=== PATIENT | male | born 1935 | race Caucasian/White ===

== ENCOUNTER 2017-01-16 19:53 | Observation (INO) ==
--- NOTE | 2017-01-16 19:59 | Emergency Department Note ---
Disposition Clinical Impression: Shortness of breath, Elevated troponin, History of end stage renal disease Acute exacerbation of CHF (congestive heart failure) Qualifiers: Congestive heart failure type: systolic Qualified Code(s): I50.23 - Acute on chronic systolic (congestive) heart failure Fluid overload Qualifiers: Hypervolemia type: unspecified Qualified Code(s): E87.70 - Fluid overload, unspecified Disposition: Admitted As Inpatient Condition: Fair Forms: ED Satisfaction Letter Time of Disposition: 22:52 SOB HPI - General Chief Complaint: ED Shortness of Breath/Dyspnea Stated Complaint: NASRA Time Seen by Provider: 01/16/17 19:57 Source: patient, EMS Mode of arrival: EMS Nursing Notes Reviewed: Yes Vital Signs Reviewed: Yes - History of Present Illness Patient is a 81-year-old male with past medical history of hypertension, hyperlipidemia, previous NM, CHF, end-stage renal disease with dialysis on Tuesday, Tuesday, Tuesday. He has not missed any dialysis sessions. He presents today due to shortness of breath, increased abdominal girth, weight gain. Patient states that he has been admitted to the hospital multiple times and states that this is exactly how previous fluid overload has presented. Denies any chest pain, cough, fevers, nausea, vomiting, abdominal pain. He does admit to shortness of breath both at rest and with exertion. - Related Data Home Medications Medication Instructions Recorded Confirmed Allopurinol [Zyloprim] 200 mg PO DAILY 09/10/15 11/09/15 Aspirin Enteric Coated [Aspirin EC] 81 mg PO DAILY 09/10/15 11/09/15 Clopidogrel [Plavix] 75 mg PO QAM 09/10/15 11/09/15 Colchicine [Colcrys] 0.6 mg PO DAILY 09/10/15 11/09/15 Finasteride [Proscar] 5 mg PO QPM 09/10/15 11/09/15 Isosorbide MONOnitrate (24 HR) 60 mg PO QAM 09/10/15 11/09/15 [Imdur] Metoprolol XL (24 HR) Succ [Toprol 25 mg PO QAM 09/10/15 11/09/15 XL] Silodosin [Rapaflo] 4 mg PO QAM 09/10/15 11/09/15 Simvastatin [Zocor] 40 mg PO QPM 09/10/15 11/09/15 Furosemide [Lasix] 20 mg PO DAILY 11/09/15 11/09/15 Potassium Chloride [K-Tab ER] 20 meq PO DAILY 11/09/15 11/09/15 Previous Rx's Medication Instructions Recorded Ergocalciferol (VITAMIN D2) 50,000 unit PO QWEEK capsule 11/11/15 [Drisdol (50,000 Unit)] Furosemide [Lasix] 40 mg PO DAILY #30 tab 11/11/15 Simvastatin [Zocor] 40 mg PO QPM tablet 11/11/15 Allergies Allergy/AdvReac Type Severity Reaction Status Date / Time No Known Allergies Allergy Verified 01/11/17 14:20 Constitutional: Denies: fever Eyes: Denies: eye pain ENT ED: Denies: ear pain Cardiovascular: Denies: chest pain, palpitations, dyspnea on exertion Respiratory: Reports: dyspnea. Denies: cough, wheezes Gastrointestinal: Denies: abdominal pain, nausea, vomiting, diarrhea Genitourinary: Denies: urgency, dysuria, frequency Musculoskeletal: Denies: back pain, neck pain Integumentary: Denies: rash, abrasion, lesions Neurological: Denies: headache Past Medical History - Past Medical History Attestation: Yes The following information was validated with the patient. Medical history: Reports: arthritis, cardiomyopathy, CHF, coronary artery disease, GERD, hyperlipidemia, hypertension, myocardial infarction, renal disease, other Surgical history: Reports: angioplasty/stent (BMS to LAD at [facility] 2010), cataract , knee replacement, pacemaker/AICD (dual chamber ICD) Psychiatric history: Reports: no psych history - Social History Smoking Status: Never smoker Smokeless Tobacco Status: No Alcohol use: Reports: none Drug use: Reports: none Physical Exam - General Limitations: no limitations General appearance: alert - Head Head exam: atraumatic, normocephalic, normal inspection - Eye Eye exam: Present: normal appearance, PERRL, EOMI - ENT ENT exam: normal exam, normal oropharynx, mucous membranes moist - Neck Neck exam: Present: normal inspection, full ROM, trachea midline - Chest Chest inspection: Present: normal inspection, symmetric chest wall rise - Respiratory Respiratory exam: Present: other (Increased work of breathing, mild accessory muscle use, fine crackles in bilateral lower lobes.) - Cardiovascular Cardiovascular exam: Present: regular rate, normal rhythm, normal heart sounds - Abdominal Exam Abdominal exam: Present: soft, Non-Tender, distention. Absent: tenderness, guarding, rebound, rigidity - Extremities Exam Extremities exam: Present: normal inspection, full ROM. Absent: tenderness, pedal edema - Neurological Exam Neurological exam: Present: alert, oriented X3 - Psychiatric Psychiatric exam: Present: normal affect, normal mood - Skin Skin exam: Present: warm, dry, intact, normal color Course Course Narrative: Blood pressure in 90s over 60s. However, the rest of vitals were within normal limits. Physical exam shows Increased work of breathing, mild accessory muscle use, fine crackles in bilateral lower lobes. Due to concern about fluid overload, we will obtain basic labs, chest x-ray, we will also obtain a troponin due to previous cardiac history. 22:48 No elevation in white blood cell count. Troponin 0.09 which would be expected with end-stage renal disease. EKG showed no acute ST changes. BNP elevated in 3000s, highest BNP to date. Chest x-ray shows interstitial edema. I talk with the patient and he stated that he did not want dialysis at this time. I called Dr. Campbell and discussed the case. He stated that since patient did not want dialysis, give the patient IV 40 mg Lasix and he will act as a consult and evaluate the patient in the morning. No need for emergent dialysis at this time. Dr. Krause accepted for fluid overload, CHF, hx of ESRD. Chest X-Ray 01/16/17 19:58 IMPRESSION: Stable exam with interstitial markings likely representing pulmonary vascular congestion. D/ / Reynaldo Lund MD / Reynaldo Lund MD Interpreting Provider: Reynaldo Lund MD Vital Signs Temperature 98.6 F 01/16/17 20:05 Pulse Rate 85 01/16/17 20:05 Respiratory Rate 20 01/16/17 20:05 Blood Pressure 89/73 01/16/17 20:05 O2 Sat by Pulse Oximetry 100 01/16/17 20:05 Temperature 98.6 F 01/16/17 20:05 Pulse Rate 92 01/16/17 22:13 Respiratory Rate 20 01/16/17 22:13 Blood Pressure 106/81 01/16/17 22:13 O2 Sat by Pulse Oximetry 97 01/16/17 22:13 Oxygen Delivery Oxygen Delivery Nasal Cannula Shortness of Breath/Dyspnea - [facility] Narrative Medical decision making narrative: Blood pressure in 90s over 60s. However, the rest of vitals were within normal limits. Physical exam shows Increased work of breathing, mild accessory muscle use, fine crackles in bilateral lower lobes. Due to concern about fluid overload, we will obtain basic labs, chest x-ray, we will also obtain a troponin due to previous cardiac history. 22:48 No elevation in white blood cell count. Troponin 0.09 which would be expected with end-stage renal disease. EKG showed no acute ST changes. BNP elevated in 3000s, highest BNP to date. Chest x-ray shows interstitial edema. I talk with the patient and he stated that he did not want dialysis at this time. I called Dr. Campbell and discussed the case. He stated that since patient did not want dialysis, give the patient IV 40 mg Lasix and he will act as a consult and evaluate the patient in the morning. No need for emergent dialysis at this time. Dr. Krause accepted for fluid overload, CHF, hx of ESRD. - Lab Data Lab results reviewed: Yes I reviewed the patient's lab results. Result diagrams: 01/16/17 20:40 01/16/17 20:40 Lab Results 01/16/17 01/16/17 01/16/17 Range/Units 20:40 20:40 20:40 WBC 8.4 (4.3-11.1) K/mcL RBC 3.42 L (4.19-5.50) M/mcL Hgb 10.6 L (12.9-16.9) g/dL Hct 33.0 L (37.5-50.1) % MCV 96.5 (83.0-100.0) fL MCH 31.0 (28.0-33.3) pg MCHC 32.1 (31.6-35.5) g/dL RDW 13.9 (11.5-14.5) % Plt Count 189 (140-400) K/mcL MPV 11.8 (9.4-12.4) fL Immature Gran % 0.2 (0-4) % Seg Neutrophils % 66.2 % Lymphocytes % 16.9 % Monocytes % 11.0 % Eosinophils % 5.2 % Basophils % 0.5 % Neutrophils # 5.6 (1.6-8.9) K/mcL Lymphocytes # 1.4 (0.6-4.6) K/mcL Monocytes # 0.9 (0.0-1.3) K/mcL Eosinophils # 0.4 (0.0-0.6) K/mcL Basophils # 0.0 (0.0-0.2) K/mcL Sodium 137 (136-145) mEq/L Potassium 3.5 (3.5-4.5) mEq/L Chloride 101 (98-109) mEq/L Carbon Dioxide 24 (19-29) mEq/L BUN 46 H (8-26) mg/dL Creatinine 3.73 H (0.72-1.25) mg/dL Est GFR ( Amer) 19 L (> 60) Est GFR (Non-Af Amer) 16 L (> 60) BUN/Creatinine Ratio 12 (6-26) Glucose 114 H (70-99) mg/dL Calculated Osmolality 297 (280-300) Calcium 9.6 (8.6-10.8) mg/dL Troponin I 0.09 H* (0-0.03) ng/mL B-Natriuretic Peptide (0-100) pg/mL 01/16/17 Range/Units 20:40 WBC (4.3-11.1) K/mcL RBC (4.19-5.50) M/mcL Hgb (12.9-16.9) g/dL Hct (37.5-50.1) % MCV (83.0-100.0) fL MCH (28.0-33.3) pg MCHC (31.6-35.5) g/dL RDW (11.5-14.5) % Plt Count (140-400) K/mcL MPV (9.4-12.4) fL Immature Gran % (0-4) % Seg Neutrophils % % Lymphocytes % % Monocytes % % Eosinophils % % Basophils % % Neutrophils # (1.6-8.9) K/mcL Lymphocytes # (0.6-4.6) K/mcL Monocytes # (0.0-1.3) K/mcL Eosinophils # (0.0-0.6) K/mcL Basophils # (0.0-0.2) K/mcL Sodium (136-145) mEq/L Potassium (3.5-4.5) mEq/L Chloride (98-109) mEq/L Carbon Dioxide (19-29) mEq/L BUN (8-26) mg/dL Creatinine (0.72-1.25) mg/dL Est GFR ( Amer) (> 60) Est GFR (Non-Af Amer) (> 60) BUN/Creatinine Ratio (6-26) Glucose (70-99) mg/dL Calculated Osmolality (280-300) Calcium (8.6-10.8) mg/dL Troponin I (0-0.03) ng/mL B-Natriuretic Peptide 3128 H (0-100) pg/mL - Radiology Data Radiology results reviewed: Yes I reviewed the patient's radiology results. Chest X-Ray 01/16/17 19:58 IMPRESSION: Stable exam with interstitial markings likely representing pulmonary vascular congestion. D/ / Reynaldo Lund MD / Reynaldo Lund MD Interpreting Provider: Reynaldo Lund MD - EKG Data EKG attestation: Yes I reviewed and interpreted this EKG. EKG results narrative: 01/16/2017 at 20:20. EKG shows paced rhythm. Rate 83. QRS 216. QTC 513. No acute ST changes. S.B.A.R. - Ashley Situation: Demographics, MOA Background: Presenting Complaint, Relevant PMH, Meds, & Allergies Assessment: Vital Signs, Course and respsone to treatment, Exam Concerns, Patient/Family Expectation, Pertinant Lab Results, Outstanding Labs Recommendation: Barrier(s) to disposition, Recommendation based on pending studies, treatments, or consults [email or web address] Report Given to: Dr. Jimi Ramirez Repor Time: 22:53
--- NOTE | 2017-01-16 20:03 | Emergency Department Note ---
START Narrative - START START: For this encounter, I have reviewed the resident, CARDIOTHORACIC ANESTHESIA TECHNICIAN, or PA documentation, treatment plan, and medical decision making; and I have had face to face time with this patient. 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 Pt is chronic dialysis, MWF, denies missing any treatments. +SOB with exertion and at rest. Denies cough, chest pain, n/v/d, fever. Pt reports feeling fluid overloaded with increased weight gain, abdominal distention. Reports these symptoms are similar to previous fluid overload in the past. Seen for hypotension after dialysis within the past week and received IVFs. Patient is dyspneic with conversation. We will obtain labs and imaging to rule out cardiac disease, fluid overload, infection. Laboratories results reveal elevation of BNP. Chest x-ray does not reveal acute infiltrate. Patient is afebrile and does not have a leukocytosis. She will be admitted to the hospital for diuresis and or dialysis. Resident spoke with Dr. Allen the mechanical door repairer regarding the patient's care who agreed with the plan for admission to the hospital and recommended Lasix 40 mg IV. Patient blood pressure in the mid 90s which is the patient's baseline. Patient is awake alert and interactive with the exam.
[2017-01-16 21:00] LABS: Basophils % 0.5 %; Eosinophils # 0.4 K/mcL (0.0-0.6); Eosinophils % 5.2 %; Hemoglobin 10.6 g/dL (12.9-16.9); Immature Granulocytes % 0.2 % (0-4); Lymphocytes # 1.4 K/mcL (0.6-4.6); Lymphocytes % 16.9 %; Mean Corpuscular HGB Conc 32.1 g/dL (31.6-35.5); Mean Corpuscular Volume 96.5 fL (83.0-100.0); Mean Platelet Volume 11.8 fL (9.4-12.4); Monocytes # 0.9 K/mcL (0.0-1.3); Neutrophils # 5.6 K/mcL (1.6-8.9); Platelet Count 189 K/mcL (140-400); Red Blood Count 3.42 M/mcL (4.19-5.50); Red Cell Distribution Width 13.9 % (11.5-14.5); Segmented Neutrophils % 66.2 %
[2017-01-16 21:13] LABS: Calcium 9.6 mg/dL (8.6-10.8); Potassium 3.5 mEq/L (3.5-4.5)
[2017-01-16] MEDS ORDERED: Furosemide 40 MG/4 ML VIAL IVP ONE (22:00)
[2017-01-17] MEDS ORDERED: Ipratropium/Albuterol Neb 3 ML IH PRN (00:38)
[2017-01-17] MEDS ORDERED: Ondansetron ODT 4 MG TAB.RAPDIS SL PRN (00:38)
[2017-01-17] MEDS ORDERED: Naloxone 0.4 MG/ML INJ IVP PRN (00:38)
[2017-01-17] MEDS ORDERED: Acetaminophen 325 MG TABLET PO PRN (00:38)
[2017-01-17] MEDS ORDERED: *HR* Morphine 2 MG/ML SYRINGE IVP PRN (00:38)
[2017-01-17] MEDS ORDERED: *HR* OxyCODONE Immed Rel 5 MG TABLET PO PRN ×3 (00:38→12:16)
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
[2017-01-17] MEDS ORDERED: metOLazone 5 MG TABLET PO STA (04:34)
[2017-01-17] MEDS ORDERED: Bumetanide 1 MG/4 ML VIAL IVP STA (04:34)
[2017-01-17 04:53] LABS: Basophils # 0.1 K/mcL (0.0-0.2); Basophils % 0.6 %; Eosinophils # 0.4 K/mcL (0.0-0.6); Eosinophils % 5.1 %; Hemoglobin 10.4 g/dL (12.9-16.9); Immature Granulocytes % 0.2 % (0-4); Lymphocytes # 1.6 K/mcL (0.6-4.6); Mean Corpuscular HGB Conc 32.5 g/dL (31.6-35.5); Mean Corpuscular Hemoglobin 31.1 pg (28.0-33.3); Mean Corpuscular Volume 95.8 fL (83.0-100.0); Mean Platelet Volume 12.2 fL (9.4-12.4); Monocytes # 0.9 K/mcL (0.0-1.3); Monocytes % 10.8 %; Neutrophils # 5.4 K/mcL (1.6-8.9); Platelet Count 180 K/mcL (140-400); Red Blood Count 3.34 M/mcL (4.19-5.50); Red Cell Distribution Width 13.9 % (11.5-14.5); Segmented Neutrophils % 64.3 %
[2017-01-17 04:54] LABS: VBG HCO3 24.7 mEq/L (21-27)
[2017-01-17] MEDS: *HR* Heparin 5,000 UNIT/ML VIAL SQ SCH ×2 (05:05→18:29)
[2017-01-17 05:07] LABS: VBG PH 7.62 pH Units (7.32-7.42)
[2017-01-17 05:08] LABS: Ionized Calcium 1.14 mmol/L (1.15-1.35)
[2017-01-17 05:16] LABS: Albumin 2.8 g/dL (3.5-5.0); Albumin/Globulin Ratio 0.7 (1.1-2.2); Bilirubin,Direct 0.3 mg/dL (0.0-0.5); Bilirubin,Indirect 0.6 mg/dL (0.0-1.2); Bilirubin,Total 0.9 mg/dL (0.2-1.2); Calcium 9.5 mg/dL (8.6-10.8); Chol/HDL Ratio 3.1 (0-4.9); Globulin 3.9 g/dL (2.4-3.5); Magnesium 1.9 mg/dL (1.6-2.6); Phosphorous 3.9 mg/dL (2.3-4.7); Potassium 3.6 mEq/L (3.5-4.5); Total Protein 6.7 g/dL (6.0-8.3); Uric Acid 5.6 mg/dL (3.5-7.2)
[2017-01-17 05:44] LABS: Thyroid Stimulating Hormone 3.801 mcIU/mL (0.350-4.840)
--- NOTE | 2017-01-17 08:24 | Nephrology Consult Note ---
Date of Encounter: 01/17/17 Time of Encounter: 08:22 Assessment and Plan (1) End-stage renal disease Current Visit: Yes Status: Acute Patient has end-stage renal disease and receives dialysis every Tuesday in [place]. He presents with acute on chronic systolic congestive heart failure in the setting of ischemic heart myopathy. Last ejection fraction was 25% back in August 2015. Patient will undergo dialysis today with volume removal as tolerated. He tends to run a low blood pressure which makes volume removal difficult on dialysis. We are going to recommend checking another echocardiogram to see if his ejection fraction has changed. It is also noteworthy that he had a CAT scan back in August 2015 which suggested some underlying chronic interstitial lung disease. May be worthwhile to repeat the CAT scan and/or get a pulmonary consultation to rule out underlying primary pulmonary disease. (2) Cardiomyopathy, ischemic Current Visit: Yes Status: Chronic (3) Systolic CHF, acute on chronic Current Visit: Yes Status: Acute History of Present Illness - History of Present Illness This is a 81-year-old male with end-stage renal disease who recently started dialysis. Patient presented to emergency room last night with complaints of worsening exertional dyspnea and orthopnea. Chest x-ray showed some interstitial lung changes. Patient has a history of ischemic cardiomyopathy. Last ejection fraction on echo was 25% back in August 2015. Patient denies any chest pain. Patient did receive some IV Lasix in the emergency room. He says he is breathing better this morning. Blood gases actually suggested a respiratory alkalosis. BNP is elevated but it is chronically elevated. Patient had noted some intermittent lower extremity swelling over the weekend but none currently. He does tend to run a low blood pressure with a systolic in the 90s which does make volume removal on dialysis difficult. Past Med Surg Social Fam HX - Past Medical History Medical history: arthritis, cardiomyopathy, CHF, coronary artery disease, GERD, hyperlipidemia, hypertension, myocardial infarction, renal disease, other Psychiatric history: no psych history - Past Surgical History Surgical History: angioplasty/stent, cataract, knee replacement, orthopedic, other, pacemaker/AICD, other, AICD, pacemaker - Social History Smoking Status: Never smoker Smokeless Tobacco Status: No Alcohol use: none Drug use: none - Family History Mother Living Status: Age at : 85 Cause of : Heart problems Hx Family Cardiac Disorders: Yes Hx Family Respiratory Disorders: No Hx Family Cancer: No Hx Family GI Disorders: No Hx Family Genitourinary Disorders: No Hx Family Endocrine Disorder: No Hx Family Musculoskeletal Disorders: No Hx Family Neuromuscular Disorders: No Hx Family Neurologic Disorders: No Hx Family HEENT Disorders: No Hx Family Autoimmune Disorders: No Hx Family Reproductive Disorders: No Hx Family Psychosocial Disorders: No Hx Family Medical Disorders: No Father Hx Family Cardiac Disorders: Yes Medications and Allergies Allopurinol [Zyloprim] 200 mg PO DAILY 09/10/15 [History] Aspirin Enteric Coated [Aspirin EC] 81 mg PO DAILY 09/10/15 [History] Clopidogrel [Plavix] 75 mg PO QAM 09/10/15 [History] Colchicine [Colcrys] 0.6 mg PO DAILY 09/10/15 [History] Finasteride [Proscar] 5 mg PO QPM 09/10/15 [History] Isosorbide MONOnitrate (24 HR) [Imdur] 60 mg PO QAM 09/10/15 [History] Metoprolol XL (24 HR) Succ [Toprol XL] 25 mg PO QAM 09/10/15 [History] Silodosin [Rapaflo] 4 mg PO QAM 09/10/15 [History] Simvastatin [Zocor] 40 mg PO QPM 09/10/15 [History] Furosemide [Lasix] 20 mg PO DAILY 11/09/15 [History] Potassium Chloride [K-Tab ER] 20 meq PO DAILY 11/09/15 [History] Ergocalciferol (VITAMIN D2) [Drisdol (50,000 Unit)] 50,000 unit PO QWEEK capsule 11/11/15 [Rx] Furosemide [Lasix] 40 mg PO DAILY #30 tab 11/11/15 [Rx] Simvastatin [Zocor] 40 mg PO QPM tablet 11/11/15 [Rx] Allergies No Known Allergies Allergy (Verified 01/11/17 14:20) Review of Systems Constitutional: as per HPI Eyes: bilateral: blurred vision (patient denies), diplopia (patient denies) Nose, mouth and throat: no dizziness, no headache(s) Cardiovascular: dyspnea, dyspnea on exertion, edema, orthopnea, no chest pain, no palpitations Respiratory: as per HPI, dyspnea, dyspnea on exertion Gastrointestinal: no abdominal pain, no change in bowel habits Musculoskeletal: no muscle weakness, no numbness Integumentary: no hirsutism, no striae Neurological: as per HPI Psychiatric: no depression, no difficulty concentrating Endocrine: as per HPI Hematologic/Lymphatic: no easy bruising, no lymphadenopathy Exam - Vital Signs Vital signs: Initial Vital Signs Temp Pulse Resp BP Pulse Ox 98.6 F 85 20 89/73 100 01/16/17 20:05 01/16/17 20:05 01/16/17 20:05 01/16/17 20:05 01/16/17 20:05 Vital Signs - Last 8 Hours Temp Pulse Resp BP Pulse Ox 01/17/17 07:37 97.8 F 83 18 97/65 93 L 01/17/17 07:30 97.8 F 83 18 97/65 93 L 01/17/17 04:17 97.5 F L 91 22 92/70 94 L Intake and Output 01/16/17 01/17/17 01/17/17 23:59 07:59 15:59 Output Total 500 / 500 Balance -500 / -500 Output: Urine 500 / 500 Other: Weight 72.121 kg 72.1 kg Patient Weight 01/17/17 23:59 Weight 72.1 kg - General Appearance Exam: Patient is alert and oriented. He is in no acute distress. Neck is supple. Lungs exhibit some diminished breath sounds. Lungs actually sound pretty clear. There are no wheezing rales or rhonchi noted. Heart regular rate and rhythm with a 2/6 systolic ejection murmur. Abdomen shows normal bowel sounds are present as is again a medically or tenderness. Lower extremity show minimal edema. There is a functioning AV fistula in the right upper extremity. Results - Lab Results 01/17/17 04:20 01/17/17 04:20 Most recent lab results Calcium 9.5 mg/dL (8.6-10.8) 01/17/17 04:20 Phosphorus 3.9 mg/dL (2.3-4.7) 01/17/17 04:20 Magnesium 1.9 mg/dL (1.6-2.6) 01/17/17 04:20 Consult Discharge Plan - Plan Referrals: Beverly Chen MD [Primary Care Provider] -
[2017-01-17] MEDS ORDERED: 0.9 % Sodium Chloride 250 ML IV PRN (08:26)
[2017-01-17] MEDS ORDERED: 0.9 % Sodium Chloride 2,000 ML ONE (09:15)
[2017-01-17] MEDS: Metoprolol XL (24 HR) Succ 25 MG TAB.ER.24H PO SCH (09:28)
[2017-01-17] MEDS: Isosorbide MONOnitrate (24 HR) 60 MG TAB.ER.24H PO SCH (09:28)
[2017-01-17] MEDS: Aspirin Enteric Coated 81 MG Tablet PO SCH (09:29)
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
--- NOTE | 2017-01-17 13:05 | Electrocardiograph Report ---
[place] [id number] Test Date: 2017-01-16 Pat Name: Av Amaro Department: 104 Room: 2A42 Gender: M Switch Maker: : 1935 Requested By: Kieran Borjas Order Number: [id number] Reading MD: Reji Morris MD Measurements Intervals Turner Rate: 83 P: 63 CA: 167 QRS: -79 QRSD: 216 T: 97 QT: 474 QTc: 513 Interpretive Statements ELECTRONIC VEN[employer]ICULAR PACEMAKER Electronically Signed On 01-17-2017 13:04:10 EDT by Reji Morris MD
[2017-01-17] MEDS ORDERED: *HR* LORazepam 2 MG/ML VIAL IVP ONE (18:19)
[2017-01-17] MEDS: Finasteride 5 MG TABLET PO SCH (18:28)
[2017-01-18] MEDS: *HR* Heparin 5,000 UNIT/ML VIAL SQ SCH (06:24)
--- NOTE | 2017-01-18 08:06 | Nephrology Progress Note ---
Date of Encounter: 01/18/17 Time of Encounter: 08:05 - Assessment and Plan (1) End-stage renal disease Current Visit: Yes Status: Acute Patient is symptomatically better. It is difficult to remove a large amount of volume with the patient on dialysis because of low blood pressure and also because of muscle cramping. I think the patient should be placed back on some Lasix since he does continue to make urine and this may assist with his volume control. (2) Cardiomyopathy, ischemic Current Visit: Yes Status: Chronic (3) Systolic CHF, acute on chronic Current Visit: Yes Status: Acute Subjective Interval history: The patient reports he is breathing better. Patient only had about 1.3 L removed on dialysis yesterday. Volume removal was limited by muscle cramping. Objective - Vital Signs Vital signs: Vital Signs Temp Pulse Resp BP Pulse Ox 01/18/17 07:30 98.1 F 84 18 93/61 99 01/18/17 03:45 97.5 F L 75 18 97/73 96 01/17/17 23:45 97.7 F 72 19 83/45 98 01/17/17 21:10 81 20 96/65 91 L 01/17/17 19:20 97.4 F L 88 16 89/63 97 01/17/17 17:35 97.4 F L 18 120/82 01/17/17 17:25 115/82 01/17/17 17:10 99/61 01/17/17 16:55 94/53 01/17/17 16:40 90/54 01/17/17 16:25 93/62 01/17/17 16:10 90/64 01/17/17 15:55 91/56 01/17/17 15:40 98/60 01/17/17 15:25 91/51 01/17/17 15:10 87/51 01/17/17 14:55 97/66 01/17/17 14:40 94/68 01/17/17 14:25 132/91 01/17/17 14:10 97.4 F L 18 111/71 01/17/17 11:45 97.4 F L 102 20 95/62 99 Intake and Output 01/17/17 01/18/17 01/18/17 23:59 07:59 15:59 Intake Total 490 / 490 500 / 500 Output Total 1336 / 1336 200 / 200 Balance -846 / -846 300 / 300 Intake: Oral 480 / 480 500 / 500 Other Output: Urine 0 / 0 200 / 200 Total Dialysis Output 1336 / 1336 Other: Meal Dinner Percent of Meal Consumed 100% Weight 71.033 kg Hemodialysis Net Fluid 736 Removed (mL) Patient Weight 01/18/17 23:59 Weight 71.033 kg - General Appearance Exam: Patient is alert and oriented. He is in no acute distress. Lungs coarse breath sounds. Heart regular rate and rhythm. Abdomen was benign. There is no peripheral edema. There is a functioning AV fistula in the right arm. - Lab 01/17/17 04:20 01/17/17 04:20 Most recent lab results Calcium 9.5 mg/dL (8.6-10.8) 01/17/17 04:20 Phosphorus 3.9 mg/dL (2.3-4.7) 01/17/17 04:20 Magnesium 1.9 mg/dL (1.6-2.6) 01/17/17 04:20 Consult Discharge Plan - Plan Referrals: Beverly Chen MD [Primary Care Provider] - 01/24/17 2:30 pm ( )
[2017-01-18] MEDS: Metoprolol XL (24 HR) Succ 25 MG TAB.ER.24H PO SCH (08:11)
[2017-01-18] MEDS: Isosorbide MONOnitrate (24 HR) 60 MG TAB.ER.24H PO SCH (08:11)
[2017-01-18] MEDS: Aspirin Enteric Coated 81 MG Tablet PO SCH (08:17)
[2017-01-18] MEDS: Furosemide 40 MG TABLET PO SCH (08:17)
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
[2017-01-18 08:54] LABS: Basophils % 0.4 %; Eosinophils # 0.5 K/mcL (0.0-0.6); Eosinophils % 6.7 %; Hematocrit 31.5 % (37.5-50.1); Hemoglobin 10.3 g/dL (12.9-16.9); Immature Granulocytes % 0.3 % (0-4); Lymphocytes # 1.2 K/mcL (0.6-4.6); Lymphocytes % 17.6 %; Mean Corpuscular HGB Conc 32.7 g/dL (31.6-35.5); Mean Corpuscular Hemoglobin 31.2 pg (28.0-33.3); Mean Corpuscular Volume 95.5 fL (83.0-100.0); Mean Platelet Volume 12.1 fL (9.4-12.4); Monocytes # 0.8 K/mcL (0.0-1.3); Monocytes % 11.2 %; Neutrophils # 4.3 K/mcL (1.6-8.9); Platelet Count 170 K/mcL (140-400); Segmented Neutrophils % 63.8 %
[2017-01-18 09:10] LABS: Albumin 2.7 g/dL (3.5-5.0); Albumin/Globulin Ratio 0.7 (1.1-2.2); Bilirubin,Total 0.9 mg/dL (0.2-1.2); Calcium 8.4 mg/dL (8.6-10.8); Globulin 3.9 g/dL (2.4-3.5); Potassium 3.4 mEq/L (3.5-4.5); Total Protein 6.6 g/dL (6.0-8.3)
--- NOTE | 2017-01-18 09:44 | ECHO - Doppler Report ---
Echocardiogram Name: Av Amaro Date of Study: 01/17/2017 Date: 1935 Ht: 67.0 in Medical Record#: [id number] Age: 81 Wt: 158.0 lb Gender: Male BSA: 1.83 Order #: [id number] Location: [facility] Room #: 2A42 Reading Physician: Su Mackenzie DO Icu Nurse: Cathy Rendon RDCS Ordering Physician: Ramiro Krause MD Primary Physician: Beverly Chen MD Indications: CHF Exacerbation Impressions: LVEF 20%. Severely reduced LV systolic function with regional variations. LV apex was not well visualized on this study. There is an echodensity seen in some, but not all views, in the LV apex. Cannot rule out the presence of an LV thrombus. Recommend repeat Limited study with Definity. Left ventricle is severely dilated. Indeterminate left venticular diastolic function Normal right ventricular size and function. Mild mitral regurgitation. Moderate tricuspid regurgitation. Severe pulmonary hypertension. RVSP 84 mmHg The IVC is dilated. Vocera messaged to ordering physician. Left Ventricular Wall Motion: Rest Echo Findings The mid inferior, basal inferior, mid inferior septal, basal inferior septal, mid anterior lateral, basal anterior lateral, mid anterior septal, mid inferior lateral, basal anterior septal and basal inferior lateral staley were hypokinetic. The apical inferior, apical septal and apical lateral staley were akinetic. The apex, apical anterior, mid anterior and basal anterior staley were not visualized. Findings: Study Quality * Technically adequate exam. ECG Findings * Paced rhythm. Left Ventricle * Indeterminate diastolic function. * Severely dilated left ventricle. * LVEF 20%. Left Atrium * Moderately dilated left atrium. Mitral Valve * Normal mitral valve structure. * No mitral stenosis. * Mild mitral regurgitation. Aorta * Normally sized aortic root. Ascending thoracic aorta is not well visualized. Aortic Valve * No aortic regurgitation. * Mildly calcified aortic valve leaflets. * Aortic valve not well visualized. * No aortic stenosis. Tricuspid Valve * Moderate tricuspid regurgitation. * Normal tricuspid valve structure. * Estimated RA pressure is 15 mmHg. * Estimated RVSP is 84 mmHg. * Severe pulmonary hypertension. Pulmonic Valve * Pulmonic valve is not well visualized. * No pulmonic stenosis. * Trace pulmonic regurgitation. Pulmonary Artery * Pulmonary artery not well visualized. Right Atrium * Normal right atrial size. Right Ventricle * Normal right ventricular structure and function. Device lead * A device lead was visualized in the right atrium and right ventricle. Interatrial Septum * No evidence of PFO by color Doppler. IVC * The IVC is dilated. * < 50% respiratory change. Pericardium * There is no pericardial effusion present. History Hypertension Hypercholesteremia Family History of CAD History of CAD/PTCA Myocardial Infarction Congestive Heart Failure Pacer/ICD Implant 09/05/2015 a Previous Echo was performed. Measurements: BP: 120/ 82 2D Normal Values IVSd: .89 cm 0.6 - 1.0 cm LVIDd: 7.00 cm 3.7 - 5.6 cm LVPWd: 1.19 cm 0.6 - 1.1 cm LVIDs: 4.19 cm 1.5 - 3.6 cm AO: 4.00 cm < 4.0 cm %FS: 40.90 cm >25 % LA volume: Mitral Valve Peak E:1.04 m/sec Peak E' Lat Tuan:10.7 cm/s Peak E' Med Tuan:5.7 cm/s E/E' Lat Ratio:9.7 E/E' Med Ratio:18.2 Tricuspid Valve TV Regurg Peak Grad: 69.00mmHg Updated by Su Mackenzie on 01/18/2017 9:33:35 AM electronically signed on 01/18/2017 9:38:18 AM with status of Final Wall Motion Joy: 1=Normal, 2=Hypokinesis, 3=Akinesis, 4=Dyskinesis, 5=Aneurysmal, 6=Hyperkinetic, X=Not Visualized (Blank)=Missing
--- NOTE | 2017-01-18 10:10 | Cardiology Consult Note ---
Date of Encounter: 01/18/17 Time of Encounter: 10:07 Assessment and Plan (1) Systolic CHF, acute on chronic Current Visit: Yes Status: Acute Patient had echo done yesterday which showed LVEF 20%, severely reduced LV systolic function with regional variations. Report stated that LV thrombus could not be ruled out, recommended repeat limited study with definity. LV was severely dilated, indeterminate LV diastolic function. Normal RV size and function. Mild mitral regurg, moderate Tricuspid regurg, severe pulmonary hypertension, RVSP 84mm Hg. His prior echo on 09/05/15 showed LVEF 25%. Plan: Continue with diuresis, strict I/O, fluid restriction. Management of fluid status per nephrology. Ordered stat limited echo with Definity to rule out LV thrombus. (2) Cardiomyopathy, ischemic Current Visit: Yes Status: Chronic Severe ischemic cardiomyopathy- Follows outpatient with Dr. Martinez. s/p dual chamber ICD placed on 04/2013 ([employer] E142) He was evaluated by advanced heart failure team at [facility] in January 2016, and at that time it was determined that he was not a candidate for a heart transplant or mechanical cardiac support based on comorbidities (primarily CKD). His last device interrogation was 10/14/16: no shocks delivered. (3) CAD (coronary artery disease), [place] coronary artery Current Visit: Yes Status: Chronic Patient has Hx of STEMI in 10/2010, where he had bare metal stent placed to LAD at [facility]. His last cardiac catheterization was 05/25/12: left main normal. LAD patent stent from prixomal to mid with 30% ISR. Circumflex proximal 30% stenosis. RCA proximal to mid 30-40% stenosis. EF 20-25%. LVEDP 24mm Hg. Plan: continue ASA, statin, Plavix Qualifiers: [place] vs. transplanted heart: [place] heart Associated angina: without angina Qualified Code(s): I25.10 - Atherosclerotic heart disease of [place] coronary artery without angina pectoris (4) ESRD (end stage renal disease) on dialysis Current Visit: Yes Status: Acute Patient has ESRD, on dialysis MWF. He sees Dr. Blood patient will likely benefit from further fluid removal- will defer to nephrology . Discussion w patient/family: The assessment and plan as outlined above was discussed with the patient and/or family members who expressed understanding and agreement. All questions were answered. Thank you for involving us in the care of your patient. Please call with any questions. History of Present Illness Consult date: 01/18/17 Requesting physician: Mejia Hebert Consult reason: acute CHF Chief complaint: difficulty in breathing History of present illness: Mr. Amaro is a 81 year old male with PMHx of arthritis, ischemic cardiomyopathy, CHF, CAD, GERD, HLD, HTN, NC, ESRD (on dialysis MWF, sees Dr. Blood). Patient was admitted to the hospital on 01/16/17 with CC of difficulty in breathing. He reported SOB with exertion and rest. Patient stated that this is his fourth admission for fluid overload since starting dialysis, and he was very frustrated about this. Patient has hx of CHF, and his recent echo showed significantly reduced EF compared to prior studies. Patient follows with Dr. Martinez outpatient, and his last visit was 06/14/16. Past Med Surg Social Fam HX - Past Medical History Medical history: arthritis, cardiomyopathy, CHF, coronary artery disease, GERD, hyperlipidemia, hypertension, myocardial infarction, renal disease, other Psychiatric history: no psych history - Past Surgical History Surgical History: angioplasty/stent, cataract, knee replacement, orthopedic, other, pacemaker/AICD, other, AICD, pacemaker - Social History Smoking Status: Never smoker Smokeless Tobacco Status: No Alcohol use: none Drug use: none - Family History Mother Living Status: Age at : 85 Cause of : Heart problems Hx Family Cardiac Disorders: Yes Hx Family Respiratory Disorders: No Hx Family Cancer: No Hx Family GI Disorders: No Hx Family Genitourinary Disorders: No Hx Family Endocrine Disorder: No Hx Family Musculoskeletal Disorders: No Hx Family Neuromuscular Disorders: No Hx Family Neurologic Disorders: No Hx Family HEENT Disorders: No Hx Family Autoimmune Disorders: No Hx Family Reproductive Disorders: No Hx Family Psychosocial Disorders: No Hx Family Medical Disorders: No Father Hx Family Cardiac Disorders: Yes Medications and Allergies Allopurinol [Zyloprim] 100 mg PO DAILY 09/10/15 [History] Aspirin Enteric Coated [Aspirin EC] 81 mg PO DAILY 09/10/15 [History] Clopidogrel [Plavix] 75 mg PO QAM 09/10/15 [History] Finasteride [Proscar] 5 mg PO QPM 09/10/15 [History] Isosorbide MONOnitrate (24 HR) [Imdur] 60 mg PO QAM 09/10/15 [History] Metoprolol XL (24 HR) Succ [Toprol XL] 25 mg PO QAM 09/10/15 [History] Furosemide [Lasix] 20 mg PO QPM 11/09/15 [History] Potassium Chloride [K-Tab ER] 20 meq PO DAILY 11/09/15 [History] Simvastatin [Zocor] 40 mg PO QPM tablet 11/11/15 [Rx] Ascorbate Calcium [Vitamin C] 500 mg PO DAILY 01/17/17 [History] Calcitriol [Rocaltrol] 0.25 mcg PO DAILY 01/17/17 [History] Cholecalciferol (D-3) [Vitamin D] 5,000 unit PO DAILY 01/17/17 [History] Furosemide [Lasix] 40 mg PO QAM 01/17/17 [History] Lisinopril [Zestril] 10 mg PO DAILY 01/17/17 [History] Metolazone [Zaroxolyn] 2.5 mg PO DAILY 01/17/17 [History] Allergies No Known Allergies Allergy (Verified 01/11/17 14:20) All Systems Review: A 10-system review of systems was performed and is negative for pertinent findings except as documented above in the HPI. Physical Examination Vital Signs, Last 4 Hours Temp Pulse Resp BP Pulse Ox 01/18/17 07:30 98.1 F 84 18 93/61 99 Results 01/18/17 08:39 01/18/17 08:39 Lab Results 01/18/17 01/18/17 08:39 08:39 WBC 6.7 Hgb 10.3 L Hct 31.5 L Plt Count 170 Sodium 136 Potassium 3.4 L Chloride 99 Carbon Dioxide 26 BUN 29 H D Creatinine 3.00 H Glucose 135 H Calcium 8.4 L Total Bilirubin 0.9 AST 13 ALT 13 Alkaline Phosphatase 80 Consult Discharge Plan - Plan Referrals: Beverly Chen MD [Primary Care Provider] - 01/24/17 2:30 pm ( )
[2017-01-18] MEDS ORDERED: *HR* Heparin 5,000 UNIT/ML VIAL IVP PRN ×2 (11:54)
[2017-01-18] MEDS ORDERED: *HR* Heparin 5,000 UNIT/ML VIAL IVP ONE (11:54)
[2017-01-18] MEDS ORDERED: Heparin 25,000 UNIT/500 ML D5W 25,000 UNIT/500 ML MLS IVC SCH (12:00)
[2017-01-18] MEDS ORDERED: *HR* LORazepam 0.5 MG TABLET PO PRN (12:58)
[2017-01-18 13:38] LABS: Hematocrit 34.8 % (37.5-50.1); Mean Corpuscular HGB Conc 31.6 g/dL (31.6-35.5); Mean Corpuscular Hemoglobin 30.2 pg (28.0-33.3); Mean Corpuscular Volume 95.6 fL (83.0-100.0); Platelet Count 180 K/mcL (140-400); Red Blood Count 3.64 M/mcL (4.19-5.50); Red Cell Distribution Width 13.9 % (11.5-14.5)
[2017-01-18 13:42] LABS: INR 1.2; Prothrombin Time 13.5 Seconds (9.4-12.1)
[2017-01-18 13:45] LABS: Activated Partial Thrombo Time 31.6 Seconds (26.0-36.0)
[2017-01-18] MEDS ORDERED: Furosemide 40 MG/4 ML VIAL IVP ONE (14:09)
[2017-01-18] MEDS ORDERED: Perflutren Lipid Microsphere 1.3 ML in 0.9 % Sodium Chloride 8.7 ML IVP ONE (16:51)
[2017-01-18] MEDS: Finasteride 5 MG TABLET PO SCH (18:13)
[2017-01-18] MEDS ORDERED: 0.9 % Sodium Chloride 500 ML ONE (20:16)
[2017-01-19 02:08] LABS: Basophils % 0.5 %; Eosinophils # 0.5 K/mcL (0.0-0.6); Eosinophils % 6.3 %; Hematocrit 29.8 % (37.5-50.1); Hemoglobin 9.8 g/dL (12.9-16.9); Immature Granulocytes % 0.1 % (0-4); Lymphocytes # 1.3 K/mcL (0.6-4.6); Lymphocytes % 17.7 %; Mean Corpuscular HGB Conc 32.9 g/dL (31.6-35.5); Mean Corpuscular Hemoglobin 31.4 pg (28.0-33.3); Mean Corpuscular Volume 95.5 fL (83.0-100.0); Mean Platelet Volume 11.9 fL (9.4-12.4); Monocytes # 0.9 K/mcL (0.0-1.3); Monocytes % 11.8 %; Neutrophils # 4.6 K/mcL (1.6-8.9); Platelet Count 170 K/mcL (140-400); Red Blood Count 3.12 M/mcL (4.19-5.50); Red Cell Distribution Width 13.9 % (11.5-14.5); Segmented Neutrophils % 63.6 %
[2017-01-19 02:21] LABS: INR 1.3; Prothrombin Time 14.1 Seconds (9.4-12.1)
[2017-01-19 02:23] LABS: Albumin 2.7 g/dL (3.5-5.0); Albumin/Globulin Ratio 0.7 (1.1-2.2); Bilirubin,Total 0.7 mg/dL (0.2-1.2); Calcium 8.7 mg/dL (8.6-10.8); Globulin 3.7 g/dL (2.4-3.5); Potassium 3.6 mEq/L (3.5-4.5); Total Protein 6.4 g/dL (6.0-8.3)
[2017-01-19] MEDS: Aspirin Enteric Coated 81 MG Tablet PO SCH (06:34)
[2017-01-19] MEDS: Metoprolol XL (24 HR) Succ 25 MG TAB.ER.24H PO SCH (07:38)
[2017-01-19] MEDS: Isosorbide MONOnitrate (24 HR) 60 MG TAB.ER.24H PO SCH (07:38)
--- NOTE | 2017-01-19 08:21 | Nephrology Progress Note ---
Date of Encounter: 01/19/17 Time of Encounter: 08:19 - Assessment and Plan (1) End-stage renal disease Current Visit: Yes Status: Acute The patient undergoes usual dialysis today. Once again gone removal was difficult because of hypotension severely decreased left ventricular ejection fraction and severe pulmonary hypertension that requires a high preload. (2) Cardiomyopathy, ischemic Current Visit: Yes Status: Chronic (3) Systolic CHF, acute on chronic Current Visit: Yes Status: Acute Subjective Interval history: Patient reports he is doing well. He says his shortness of breath has been under control. Recent echocardiogram confirms an EF of 20% but also documents severe pulmonary hypertension and questions a left atrial thrombus. The patient is been placed on heparin drip. He is scheduled for his usual dialysis today. Blood pressure is in the 80s systolic. Patient does not appear to be symptomatic. Objective - Vital Signs Vital signs: Vital Signs Temp Pulse Resp BP Pulse Ox 01/19/17 08:01 80/50 01/19/17 07:34 97.7 F 83 18 85/54 93 L 01/19/17 03:09 97.7 F 90 20 87/60 98 01/18/17 22:52 97.7 F 88 18 94/64 96 01/18/17 19:47 97.7 F 73 20 101/67 94 L 01/18/17 14:51 97.8 F 86 20 106/60 98 01/18/17 11:27 98.0 F 84 17 99/62 99 Intake and Output 01/18/17 01/19/17 01/19/17 23:59 07:59 15:59 Intake Total 970 / 970 180 / 180 Output Total 275 / 275 150 / 150 Balance 695 / 695 -150 / -150 180 / 180 Intake: IV Fluids 120 / 120 180 / 180 Heparin 25,000 UNIT/500 120 / 120 180 / 180 ML D5W 25,000 unit In 500 ml @ 14 UNIT/KG/HR 19. 889 mls/hr IVC .Q24H COUNTS INCLUDE 234 BEDS AT THE [facility] Rx#:[id number] Oral 850 / 850 Output: Urine 275 / 275 150 / 150 Other: Stool Size Moderate Stool Consistency liquid Stool Color Brown Yellow # Bowel Movements 1 Weight 71.214 kg Patient Weight 01/19/17 23:59 Weight 71.214 kg - General Appearance Exam: Patient is sitting on the edge of the bed eating breakfast. He is alert and oriented and in no acute distress. Lungs sounds otherwise clear. Heart irregular rate and rhythm. Abdomen is benign. There is no lower extremity swelling. There is a functioning AV fistula in the right upper extremity. - Lab 01/19/17 01:39 01/19/17 01:39 Most recent lab results Calcium 8.7 mg/dL (8.6-10.8) 01/19/17 01:39 Phosphorus 3.9 mg/dL (2.3-4.7) 01/17/17 04:20 Magnesium 1.9 mg/dL (1.6-2.6) 01/17/17 04:20 - VTE Documentation of Mechanical Device: Graduated compression elastic hosiery Consult Discharge Plan - Plan Referrals: Beverly Chen MD [Primary Care Provider] - 01/24/17 2:30 pm ( )
[2017-01-19] MEDS ORDERED: 0.9 % Sodium Chloride 2,000 ML ONE (09:25)
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
--- NOTE | 2017-01-19 09:54 | Cardiology Progress Note ---
Date of Encounter: 01/19/17 Time of Encounter: 09:52 Assessment and Plan (1) Systolic CHF, acute on chronic Current Visit: Yes Status: Acute Patient had echo done 01/17 which showed LVEF 20%, severely reduced LV systolic function with regional variations. Report stated that LV thrombus could not be ruled out, recommended repeat limited study with definity. LV was severely dilated, indeterminate LV diastolic function. Normal RV size and function. Mild mitral regurg, moderate Tricuspid regurg, severe pulmonary hypertension, RVSP 84mm Hg. His prior echo on 09/05/15 showed LVEF 25%. Plan: Continue with diuresis, strict I/O, fluid restriction. Management of fluid status per nephrology. cannot restart lisinopril or uptitrate toprol due to low blood pressure. limited echo with Definity report still present. Prelim review shows no evidence of clot, can stop heparin drip. needs Follow up with Dr. Irby in Cardiology clinic within 1-2 weeks of discharge. Cardiology will Sign off at this time. please re-consult PRN (2) Cardiomyopathy, ischemic Current Visit: Yes Status: Chronic Severe ischemic cardiomyopathy- Follows outpatient with Dr. Martinez. s/p dual chamber ICD placed on 04/2013 ([place] [employer] E142) He was evaluated by advanced heart failure team at [facility] in January 2016, and at that time it was determined that he was not a candidate for a heart transplant or mechanical cardiac support based on comorbidities (primarily CKD). His last device interrogation was 10/14/16: no shocks delivered. (3) CAD (coronary artery disease), [place] coronary artery Current Visit: Yes Status: Chronic Patient has Hx of STEMI in 10/2010, where he had bare metal stent placed to LAD at [facility]. His last cardiac catheterization was 05/25/12: left main normal. LAD patent stent from prixomal to mid with 30% ISR. Circumflex proximal 30% stenosis. RCA proximal to mid 30-40% stenosis. EF 20-25%. LVEDP 24mm Hg. Plan: continue ASA, statin, Plavix Qualifiers: [place] vs. transplanted heart: [place] heart Associated angina: without angina Qualified Code(s): I25.10 - Atherosclerotic heart disease of [place] coronary artery without angina pectoris (4) ESRD (end stage renal disease) on dialysis Current Visit: Yes Status: Acute Patient has ESRD, on dialysis MWF. He sees Dr. Blood patient will likely benefit from further fluid removal- will defer to nephrology Discussion w patient/family: The assessment and plan as outlined above was discussed with the patient and/or family members who expressed understanding and agreement. All questions were answered. Thank you for involving us in the care of your patient. Please call with any questions. Subjective Principal diagnosis: NASRA Interval history: 81 year old male evaluated at bedside. Patient denies nausa, vomiting, diarrhea , fever, chills. He denies any further complaints at this time, and is anxious to go home. Objective Vital Signs, Last 4 Hours Temp Pulse Resp BP Pulse Ox 01/19/17 09:40 88/47 01/19/17 08:01 80/50 01/19/17 07:45 93 L 01/19/17 07:34 97.7 F 83 18 85/54 93 L General: Conversant, No Apparent Distress HEENT: Atraumatic, Normocephaly Neck: No JVD Cardiac: Other (irregular rhythm. ) Lungs: Normal Breath Sounds, No Wheeze, Rales, Rhonchi Neuro: Alert and responsive, No focal deficits noted Abdomen: Soft, Non-Tender Extremities: No Cyanosis, No Edema Results 01/19/17 01:39 01/19/17 01:39 Lab Results 01/18/17 01/18/17 01/18/17 12:50 12:50 19:33 WBC 6.8 Hgb 11.0 L Hct 34.8 L Plt Count 180 INR 1.2 APTT 31.6 107.2 H D Sodium Potassium Chloride Carbon Dioxide BUN Creatinine Glucose Calcium Total Bilirubin AST ALT Alkaline Phosphatase 01/19/17 01/19/17 01/19/17 01:39 01:39 01:39 WBC 7.3 Hgb 9.8 L Hct 29.8 L Plt Count 170 INR 1.3 APTT Sodium 135 L Potassium 3.6 Chloride 98 Carbon Dioxide 26 BUN 38 H Creatinine 3.44 H Glucose 123 H Calcium 8.7 Total Bilirubin 0.7 AST 12 ALT 11 Alkaline Phosphatase 94 01/19/17 01/19/17 01:39 07:25 WBC Hgb Hct Plt Count INR APTT 77.5 H 78.9 H Sodium Potassium Chloride Carbon Dioxide BUN Creatinine Glucose Calcium Total Bilirubin AST ALT Alkaline Phosphatase - VTE Documentation of Mechanical Device: Graduated compression elastic hosiery Consult Discharge Plan - Plan Referrals: Beverly Chen MD [Primary Care Provider] - 01/24/17 2:30 pm (Please follow up as schedule... )
--- NOTE | 2017-01-19 12:15 | ECHO - Doppler Report ---
Limited Echo with Imaging Enhancement Agent Name: Av Amaro Date of Study: 01/18/2017 Date: 1935 Ht: 69.0 in Medical Record#: [id number] Age: 81 Wt: 156.0 lb Gender: Male BSA: 1.86 Order #: [id number] Location: [facility] Room #: [id number] Reading Physician: Reynaldo Irby DO, FACC, FASE, FASNC Skiff Operator: She Webber Ordering Physician: Lachelle Abel DO Primary Physician: Beverly Chen MD Indications: r/o LV thrombus Impressions: LVEF 20%. Severely dilated left ventricle with severe global hypokinesis. There is no LV thrombus. Left Ventricular Wall Motion: Rest Echo Findings The apex, apical inferior, mid inferior, basal inferior, apical anterior, mid anterior, basal anterior, apical septal, mid inferior septal, basal inferior septal, apical lateral, mid anterior lateral, basal anterior lateral, mid anterior septal, mid inferior lateral, basal anterior septal and basal inferior lateral staley were hypokinetic. Findings: Study Quality * Technically adequate exam. ECG Findings * Paced rhythm. Left Ventricle * LVEF 20%. * Severely dilated left ventricle. * Severe global left ventricular systolic dysfunction. * There is no LV thrombus. History Hypertension Hypercholesteremia Family History of CAD History of CAD/PTCA Myocardial Infarction Congestive Heart Failure Pacer/ICD Implant 01/17/2017 a Previous Echo was performed. Contrast: Definity 1.3 ml in 8.7 ml of saline 3 ml. Measurements: BP: 106/ 60 2D Normal Values RVIDd: 2.90 cm <2.7 cm IVSd: .70 cm 0.6 - 1.0 cm LVIDd: 6.80 cm 3.7 - 5.6 cm LVPWd: .80 cm 0.6 - 1.1 cm LVIDs: 6.10 cm 1.5 - 3.6 cm %FS: 10.30 cm >25 % LA volume: Updated by Reynaldo Irby DO, FACC, FASE, FASNC on 01/19/2017 12:06:59 PM electronically signed on 01/19/2017 12:08:20 PM with status of Final Wall Motion Joy: 1=Normal, 2=Hypokinesis, 3=Akinesis, 4=Dyskinesis, 5=Aneurysmal, 6=Hyperkinetic, X=Not Visualized (Blank)=Missing
[2017-01-19] MEDS: Furosemide 40 MG TABLET PO SCH (15:34)
[2017-01-19] MEDS: Finasteride 5 MG TABLET PO SCH (17:17)
[2017-01-19] MEDS: *HR* Heparin 5,000 UNIT/ML VIAL SQ SCH (17:17)
--- NOTE | 2017-01-19 17:20 | Event Note ---
<Nasim Brown - Last Filed: 01/19/17 17:13> Date of Encounter: 01/19/17 Time of Encounter: 17:13 I spoke with Mr. Amaro today per his request. He said that he would like to switch Nephrology groups and would like to see Dr. Sylvester and Priya for a second opinion during this inpatient stay. I called Dr. Blood and spoke with him regarding Mr. Amaro's request. He said if this is what Mr. Amaro is requesting then is okay with him. I called Dr. Powers and placed a formal Nephrology consultation to his group. <Mejia Hebert - Last Filed: 01/19/17 19:31> Above noted and agree.
[2017-01-20] MEDS: *HR* Heparin 5,000 UNIT/ML VIAL SQ SCH ×2 (06:02→17:00)
[2017-01-20 07:15] LABS: INR 1.2; Prothrombin Time 13.2 Seconds (9.4-12.1)
[2017-01-20 07:24] LABS: Eosinophils % 5.7 %; Hematocrit 29.7 % (37.5-50.1); Hemoglobin 9.7 g/dL (12.9-16.9); Immature Granulocytes % 0.1 % (0-4); Lymphocytes % 16.5 %; Mean Corpuscular HGB Conc 32.7 g/dL (31.6-35.5); Mean Corpuscular Hemoglobin 31.3 pg (28.0-33.3); Mean Corpuscular Volume 95.8 fL (83.0-100.0); Mean Platelet Volume 11.8 fL (9.4-12.4); Platelet Count 163 K/mcL (140-400); Red Cell Distribution Width 14.1 % (11.5-14.5); Segmented Neutrophils % 64.1 %
[2017-01-20 07:25] LABS: Basophils % 0.6 %; Eosinophils # 0.4 K/mcL (0.0-0.6); Lymphocytes # 1.1 K/mcL (0.6-4.6); Monocytes # 0.9 K/mcL (0.0-1.3); Neutrophils # 4.4 K/mcL (1.6-8.9)
[2017-01-20 07:33] LABS: Calcium 8.4 mg/dL (8.6-10.8); Potassium 3.8 mEq/L (3.5-4.5)
[2017-01-20] MEDS: Metoprolol XL (24 HR) Succ 25 MG TAB.ER.24H PO SCH (08:04)
[2017-01-20] MEDS: Isosorbide MONOnitrate (24 HR) 60 MG TAB.ER.24H PO SCH (08:04)
[2017-01-20] MEDS: Aspirin Enteric Coated 81 MG Tablet PO SCH (08:12)
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
[2017-01-20] MEDS: Lidocaine Jelly 11 ml Syringe TP PRN (14:00)
[2017-01-20] MEDS: Ketoconazole 2% CRM 15 GM TUBE TP SCH ×2 (14:01→21:21)
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
[2017-01-20] MEDS: Finasteride 5 MG TABLET PO SCH (17:00)
[2017-01-20] MEDS: Furosemide 40 MG TABLET PO SCH (18:05)
[2017-01-21] MEDS: *HR* Heparin 5,000 UNIT/ML VIAL SQ SCH ×2 (05:11→17:20)
[2017-01-21 06:11] LABS: Basophils % 0.7 %; Eosinophils # 0.4 K/mcL (0.0-0.6); Hematocrit 29.8 % (37.5-50.1); Hemoglobin 9.5 g/dL (12.9-16.9); Immature Granulocytes % 0.3 % (0-4); Lymphocytes % 17.3 %; Mean Corpuscular HGB Conc 31.9 g/dL (31.6-35.5); Mean Corpuscular Hemoglobin 30.5 pg (28.0-33.3); Mean Corpuscular Volume 95.8 fL (83.0-100.0); Mean Platelet Volume 11.6 fL (9.4-12.4); Monocytes # 0.7 K/mcL (0.0-1.3); Monocytes % 12.1 %; Neutrophils # 3.8 K/mcL (1.6-8.9); Platelet Count 163 K/mcL (140-400); Red Blood Count 3.11 M/mcL (4.19-5.50); Red Cell Distribution Width 14.2 % (11.5-14.5); Segmented Neutrophils % 63.6 %
[2017-01-21 06:25] LABS: Albumin 2.6 g/dL (3.5-5.0); Phosphorous 4.1 mg/dL (2.3-4.7)
[2017-01-21 06:26] LABS: Calcium 9.1 mg/dL (8.6-10.8); Potassium 3.7 mEq/L (3.5-4.5)
[2017-01-21] MEDS: Aspirin Enteric Coated 81 MG Tablet PO SCH (07:55)
[2017-01-21] MEDS: Ketoconazole 2% CRM 15 GM TUBE TP SCH ×2 (07:56→20:17)
[2017-01-21] MEDS: Furosemide 40 MG TABLET PO SCH (08:00)
[2017-01-21] MEDS: Isosorbide MONOnitrate (24 HR) 60 MG TAB.ER.24H PO SCH (08:00)
[2017-01-21] MEDS: Metoprolol XL (24 HR) Succ 25 MG TAB.ER.24H PO SCH (08:00)
[2017-01-21] MEDS: Lidocaine Jelly 11 ml Syringe TP PRN (08:40)
[2017-01-21] MEDS ORDERED: 0.9 % Sodium Chloride 250 ML IVC PRN (09:22)
[2017-01-21] MEDS ORDERED: Albumin 25% 25gram/100mL 25 GM/100 ML IV.SOLN IVPB ONE (09:28)
[2017-01-21] MEDS ORDERED: 0.9 % Sodium Chloride 1,000 ML PRIME SCH (09:30)
[2017-01-21] MEDS ORDERED: Albumin 25% 12.5gm/50mL 0 GM/0 ML IV.SOLN ONE (09:57)
--- NOTE | 2017-01-21 11:03 | Nephrology Progress Note ---
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 If no issues, patient will be okay for outpatient HD. - Hold lasix until follow-up outpatient with PCP or nephrology. - Plan for outpatient HD -W-. (2) Acute and chronic respiratory failure with hypoxia Current Visit: Yes Status: Acute (3) Systolic CHF, acute on chronic Current Visit: Yes Status: Acute Subjective Principal diagnosis: ESRD on dialysis Interval history: Patient seen and examined in dialysis. No complaints. Objective - Vital Signs Vital signs: Vital Signs Temp Pulse Resp BP Pulse Ox 01/21/17 08:50 98 01/21/17 07:00 98.4 F 81 18 93/60 98 01/21/17 02:52 98.6 F 81 13 98/59 100 01/21/17 00:18 97.6 F 78 12 103/69 99 01/20/17 19:32 98.1 F 78 16 88/60 100 01/20/17 17:16 97.6 F 78 16 92/59 100 01/20/17 11:40 97.8 F 85 16 95/64 97 Intake and Output 01/20/17 01/21/17 01/21/17 23:59 07:59 15:59 Intake Total 120 / 120 240 / 240 Output Total 100 / 100 600 / 600 Balance 120 / 120 -100 / -100 -360 / -360 Intake: Oral 120 / 120 240 / 240 Output: Urine 100 / 100 600 / 600 Other: Meal Breakfast Percent of Meal Consumed 100% # Voids 2 Weight 72 kg Patient Weight 01/21/17 23:59 Weight 72 kg - General Appearance General appearance: Present: well-developed, well-nourished, appears started age EENT: Present: mucous membranes moist Neck: Present: supple Respiratory: Present: rhonchi (bilateral bases ) Cardiology: Present: no murmurs, regular rate, regular rhythm, normal S1, normal S2 Dialysis Vascular Access: Arteriovenous Fistula (right upper extremity) Integumentary: Present: no rash, warm and dry Additional Comments: extensive (old) scarring seen on left leg Neurologic: Present: no focal deficit, alert and oriented x3, CN 3-12 intact Musculoskeletal: Present: no erythema, no cyanosis, no clubbing Additional Comments: extensive scarring from previous Psychiatric: Present: mood/affect appropriate, cooperative - Lab 01/21/17 05:44 01/21/17 05:44 Most recent lab results Calcium 9.1 mg/dL (8.6-10.8) 01/21/17 05:44 Phosphorus 4.1 mg/dL (2.3-4.7) 01/21/17 05:44 Magnesium 1.9 mg/dL (1.6-2.6) 01/17/17 04:20 - VTE Documentation of Mechanical Device: Graduated compression elastic hosiery Consult Discharge Plan - Plan Referrals: Beverly Chen MD [Primary Care Provider] - 01/24/17 2:30 pm (Please follow up as schedule... )
[2017-01-21] MEDS ORDERED: 0.9 % Sodium Chloride 2,000 ML ONE (14:23)
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
[2017-01-21] MEDS: Finasteride 5 MG TABLET PO SCH (17:20)
[2017-01-22] MEDS: *HR* Heparin 5,000 UNIT/ML VIAL SQ SCH (05:53)
[2017-01-22 07:00] LABS: Basophils % 0.6 %; Eosinophils # 0.4 K/mcL (0.0-0.6); Eosinophils % 5.1 %; Hematocrit 30.4 % (37.5-50.1); Hemoglobin 9.9 g/dL (12.9-16.9); Immature Granulocytes % 0.3 % (0-4); Lymphocytes # 0.9 K/mcL (0.6-4.6); Lymphocytes % 13.4 %; Mean Corpuscular HGB Conc 32.6 g/dL (31.6-35.5); Mean Corpuscular Hemoglobin 31.2 pg (28.0-33.3); Mean Corpuscular Volume 95.9 fL (83.0-100.0); Monocytes # 0.9 K/mcL (0.0-1.3); Neutrophils # 4.7 K/mcL (1.6-8.9); Platelet Count 152 K/mcL (140-400); Red Blood Count 3.17 M/mcL (4.19-5.50); Red Cell Distribution Width 14.3 % (11.5-14.5); Segmented Neutrophils % 67.6 %
[2017-01-22 07:13] LABS: Calcium 8.9 mg/dL (8.6-10.8); Potassium 3.6 mEq/L (3.5-4.5)
[2017-01-22 07:28] VITALS: BP 97/53
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
[2017-01-22] MEDS: Isosorbide MONOnitrate (24 HR) 60 MG TAB.ER.24H PO SCH (08:49)
[2017-01-22] MEDS: Aspirin Enteric Coated 81 MG Tablet PO SCH (08:51)
[2017-01-22] MEDS: Metoprolol XL (24 HR) Succ 25 MG TAB.ER.24H PO SCH (08:52)
[2017-01-22] MEDS: Ketoconazole 2% CRM 15 GM TUBE TP SCH (11:47)
== END 2017-01-22 12:01 | disposition home or self-care (01) ==
LOC: 2ANU 19:53 → EMEROO 19:53 → 2ANU 23:33
PROVIDERS: ADMIT Internal Medicine; ATTEND Internal Medicine

== ENCOUNTER 2017-01-30 18:25 | Observation (INO) ==
[2017-01-30] MEDS ORDERED: Furosemide 40 MG/4 ML VIAL IVP ONE (18:41)
--- NOTE | 2017-01-30 18:45 | Emergency Department Note ---
Disposition Clinical Impression: History of end stage renal disease Dyspnea Qualifiers: Dyspnea type: unspecified Qualified Code(s): R06.00 - Dyspnea, unspecified CHF exacerbation Qualifiers: Congestive heart failure type: unspecified congestive heart failure type Qualified Code(s): I50.9 - Heart failure, unspecified Disposition: Admitted As Inpatient Condition: Fair Referrals: Beverly Chen MD [Primary Care Provider] - Forms: ED Satisfaction Letter Time of Disposition: 20:31 SOB HPI - General Chief Complaint: ED Syncope Stated Complaint: WEAK/DIZZY Time Seen by Provider: 01/30/17 18:28 Source: patient Mode of arrival: ambulatory Limitations: no limitations Nursing Notes Reviewed: Yes Vital Signs Reviewed: Yes - History of Present Illness Patient is a 81-year-old male with past medical history of HTN, HLD, CHF, end- stage renal disease with dialysis on Tuesday, Tuesday, Tuesday and currently on Lasix, also has a pace maker placed. He presents today due to shortness of breath and concerns for fluid overload. I actually admitted this patient a couple weeks ago for similar presentation with concern for fluid overload. He is admitted that time, recently released around Tuesday or Tuesday. He was discharged home with instructions to take 80 mg of Lasix in the morning, 80 mg of Lasix in the afternoon, 40 mg of Lasix in the evening. The patient misunderstood and thought he was told to stop taking his Lasix. He has not had his Lasix for about 6 days. He started retaking the Lasix on Tuesday. However, he has been short of breath since Tuesday, mainly on exertion. He has also had an 8 pound weight gain, feels more distended in his abdomen, has noted increased swelling in the lower extremities. Denies any chest pain, nausea, vomiting, fevers, abdominal pain, dysuria or hematuria. He has not missed any recent episodes of dialysis. He is switched nephrology care from Dr. Blood to Dr. Sylvester. - Related Data Home Medications Medication Instructions Recorded Confirmed Allopurinol [Zyloprim] 100 mg PO DAILY 09/10/15 01/17/17 Aspirin Enteric Coated [Aspirin EC] 81 mg PO DAILY 09/10/15 01/17/17 Clopidogrel [Plavix] 75 mg PO QAM 09/10/15 01/17/17 Finasteride [Proscar] 5 mg PO QPM 09/10/15 01/17/17 Isosorbide MONOnitrate (24 HR) 60 mg PO QAM 09/10/15 01/17/17 [Imdur] Metoprolol XL (24 HR) Succ [Toprol 25 mg PO QAM 09/10/15 01/17/17 XL] Ascorbate Calcium [Vitamin C] 500 mg PO DAILY 01/17/17 01/17/17 Calcitriol [Rocaltrol] 0.25 mcg PO DAILY 01/17/17 01/17/17 Cholecalciferol (D-3) [Vitamin D] 5,000 unit PO DAILY 01/17/17 01/17/17 Lisinopril [Zestril] 10 mg PO DAILY 01/17/17 01/17/17 Previous Rx's Medication Instructions Recorded Simvastatin [Zocor] 40 mg PO QPM tablet 11/11/15 Escitalopram [Lexapro] 10 mg PO DAILY #30 tablet 01/22/17 Tamsulosin [Flomax] 0.4 mg PO QAM capsule 01/22/17 Allergies Allergy/AdvReac Type Severity Reaction Status Date / Time No Known Allergies Allergy Verified 01/30/17 18:33 Constitutional: Denies: fever Cardiovascular: Reports: dyspnea on exertion. Denies: chest pain, palpitations Respiratory: Reports: dyspnea, wheezes. Denies: cough Gastrointestinal: Denies: abdominal pain, nausea, vomiting, diarrhea Genitourinary: Denies: urgency, dysuria, frequency Musculoskeletal: Denies: back pain Integumentary: Denies: rash Past Medical History - Past Medical History Attestation: Yes The following information was validated with the patient. Source: patient Medical history: Reports: arthritis, cardiomyopathy, CHF, coronary artery disease, GERD, hyperlipidemia, hypertension, myocardial infarction, renal disease, other Surgical history: Reports: angioplasty/stent, cataract, knee replacement, orthopedic, other, pacemaker/AICD, other, AICD, pacemaker Psychiatric history: Reports: no psych history - Social History Smoking Status: Never smoker Smokeless Tobacco Status: No Alcohol use: Reports: none Drug use: Reports: none Physical Exam - General Limitations: no limitations General appearance: alert, in distress (Mild, respiratory) - Head Head exam: atraumatic, normocephalic, normal inspection - Eye Eye exam: Present: normal appearance, PERRL, EOMI - ENT ENT exam: normal exam, normal oropharynx, mucous membranes moist - Neck Neck exam: Present: normal inspection, full ROM, trachea midline - Chest Chest inspection: Present: normal inspection, symmetric chest wall rise - Respiratory Respiratory exam: Present: wheezes (mild wheeze and crackle in bilateral LL) - Cardiovascular Cardiovascular exam: Present: regular rate, normal rhythm, normal heart sounds - Abdominal Exam Abdominal exam: Present: soft, Non-Tender, distention (mild distention). Absent : tenderness, guarding, rebound, rigidity - Extremities Exam Extremities exam: Present: full ROM, pedal edema (mild bilateral LE edema). Absent: tenderness - Neurological Exam Neurological exam: Present: alert, oriented X3 - Psychiatric Psychiatric exam: Present: normal affect, normal mood - Skin Skin exam: Present: warm, dry, intact, normal color Course Course Narrative: Patient was mildly hypertensive on presentation. However, repeat blood pressure was 105 over 60s. Patient was satting 95% on 2 L nasal cannula oxygen. He wears 2 L nasal cannula oxygen chronically. He was in mild respiratory distress, leaning forward, using accessory muscles. Lung exam shows mild bilateral lower lobe wheeze and crackle. Mild lower extremity edema bilaterally. We will perform basic dyspnea workup including EKG, chest x-ray, basic labs. We will then admit for IV Lasix and dialysis. 20:29 patient had chronic anemia on labs near baseline. Potassium was within normal limits. His x-ray showed fibrosis but no signs of edema. Patient still dyspneic on exam. He was given IV Lasix 80 mg. I spoke with Dr. Sylvester with nephrology. She was agreeable to patient coming in, receiving Lasix, dialysis in the morning. She act as consult on the case. I spoke with Dr. Krause who accepted patient for admission. Chest X-Ray 01/30/17 18:41 IMPRESSION: Interstitial prominence which appears somewhat coarse and may represent underlying fibrosis. This is similar to previous exam. D/ / Yanely Restrepo MD / Yanely Restrepo MD Interpreting Provider: Yanely Restrepo MD Vital Signs Temperature 97.8 F 01/30/17 18:27 Pulse Rate 76 01/30/17 18:27 Respiratory Rate 20 01/30/17 18:27 Blood Pressure 131/93 01/30/17 18:27 O2 Sat by Pulse Oximetry 94 01/30/17 18:27 Temperature 97.8 F 01/30/17 18:27 Pulse Rate 68 01/30/17 19:41 Respiratory Rate 16 01/30/17 19:41 Blood Pressure 105/88 01/30/17 19:41 O2 Sat by Pulse Oximetry 96 01/30/17 19:41 Oxygen Delivery Oxygen Delivery Nasal Cannula Shortness of Breath/Dyspnea - MDM Narrative Medical decision making narrative: Patient was mildly hypertensive on presentation. However, repeat blood pressure was 105 over 60s. Patient was satting 95% on 2 L nasal cannula oxygen. He wears 2 L nasal cannula oxygen chronically. He was in mild respiratory distress, leaning forward, using accessory muscles. Lung exam shows mild bilateral lower lobe wheeze and crackle. Mild lower extremity edema bilaterally. We will perform basic dyspnea workup including EKG, chest x-ray, basic labs. We will then admit for IV Lasix and dialysis. 20:29 patient had chronic anemia on labs near baseline. Potassium was within normal limits. His x-ray showed fibrosis but no signs of edema. Patient still dyspneic on exam. He was given IV Lasix 80 mg. I spoke with Dr. Sylvester with nephrology. She was agreeable to patient coming in, receiving Lasix, dialysis in the morning. She act as consult on the case. I spoke with Dr. Krause who accepted patient for admission. - Medical Records Medical records reviewed: Yes I reviewed the patient's medical records. - Lab Data Lab results reviewed: Yes I reviewed the patient's lab results. Result diagrams: 01/30/17 18:53 01/30/17 18:53 Lab Results 01/30/17 01/30/17 01/30/17 Range/Units 18:53 18:53 18:53 WBC 8.2 (4.3-11.1) K/mcL RBC 3.48 L (4.19-5.50) M/mcL Hgb 10.7 L (12.9-16.9) g/dL Hct 33.5 L (37.5-50.1) % MCV 96.3 (83.0-100.0) fL MCH 30.7 (28.0-33.3) pg MCHC 31.9 (31.6-35.5) g/dL RDW 14.1 (11.5-14.5) % Plt Count 263 (140-400) K/mcL MPV 11.0 (9.4-12.4) fL Immature Gran % 0.4 (0-4) % Seg Neutrophils % 72.9 % Lymphocytes % 12.7 % Monocytes % 9.9 % Eosinophils % 3.4 % Basophils % 0.7 % Neutrophils # 6.0 (1.6-8.9) K/mcL Lymphocytes # 1.0 (0.6-4.6) K/mcL Monocytes # 0.8 (0.0-1.3) K/mcL Eosinophils # 0.3 (0.0-0.6) K/mcL Basophils # 0.1 (0.0-0.2) K/mcL Sodium 138 (136-145) mEq/L Potassium 3.9 (3.5-4.5) mEq/L Chloride 101 (98-109) mEq/L Carbon Dioxide 21 (19-29) mEq/L BUN 54 H (8-26) mg/dL Creatinine 4.18 H (0.72-1.25) mg/dL Est GFR ( Amer) 17 L (> 60) Est GFR (Non-Af Amer) 14 L (> 60) BUN/Creatinine Ratio 13 (6-26) Glucose 115 H (70-99) mg/dL Calculated Osmolality 302 H (280-300) Calcium 10.0 (8.6-10.8) mg/dL Troponin I 0.04 H* (0-0.03) ng/mL B-Natriuretic Peptide (0-100) pg/mL 01/30/17 Range/Units 18:53 WBC (4.3-11.1) K/mcL RBC (4.19-5.50) M/mcL Hgb (12.9-16.9) g/dL Hct (37.5-50.1) % MCV (83.0-100.0) fL MCH (28.0-33.3) pg MCHC (31.6-35.5) g/dL RDW (11.5-14.5) % Plt Count (140-400) K/mcL MPV (9.4-12.4) fL Immature Gran % (0-4) % Seg Neutrophils % % Lymphocytes % % Monocytes % % Eosinophils % % Basophils % % Neutrophils # (1.6-8.9) K/mcL Lymphocytes # (0.6-4.6) K/mcL Monocytes # (0.0-1.3) K/mcL Eosinophils # (0.0-0.6) K/mcL Basophils # (0.0-0.2) K/mcL Sodium (136-145) mEq/L Potassium (3.5-4.5) mEq/L Chloride (98-109) mEq/L Carbon Dioxide (19-29) mEq/L BUN (8-26) mg/dL Creatinine (0.72-1.25) mg/dL Est GFR ( Amer) (> 60) Est GFR (Non-Af Amer) (> 60) BUN/Creatinine Ratio (6-26) Glucose (70-99) mg/dL Calculated Osmolality (280-300) Calcium (8.6-10.8) mg/dL Troponin I (0-0.03) ng/mL B-Natriuretic Peptide 3076 H (0-100) pg/mL - Radiology Data Radiology results reviewed: Yes I reviewed the patient's radiology results. Chest X-Ray 01/30/17 18:41 IMPRESSION: Interstitial prominence which appears somewhat coarse and may represent underlying fibrosis. This is similar to previous exam. D/ / Yanely Restrepo MD / Yanely Restrepo MD Interpreting Provider: Yanely Restrepo MD - EKG Data EKG attestation: Yes I reviewed and interpreted this EKG. EKG results narrative: 01/30/2017 18:33. Rate 95. AL interval 138. QRS 215. QTC 518. Paced rhythm. No changes from previous EKG on 01/16/2017. S.B.A.R. - S.B.A.R. Situation: Demographics, MOA Background: Presenting Complaint, Relevant PMH, Meds, & Allergies Assessment: Vital Signs, Course and respsone to treatment, Exam Concerns, Patient/Family Expectation, Pertinant Lab Results, Outstanding Labs Recommendation: Barrier(s) to disposition, Recommendation based on pending studies, treatments, or consults Ashley Report Given to: Dr. Jimi Ramirez Repor Time: 20:31 Attestation Statement - Attestation Attestation: I examined this patient and my medical decision-making was reviewed with the CORPORATE RELATIONS DIRECTOR/PA/Advanced Practice Nurse/Resident Physician. I agree with the documented findings, disposition and treatment plan as described except to the extent set forth below.
[2017-01-30 19:02] LABS: Basophils # 0.1 K/mcL (0.0-0.2); Basophils % 0.7 %; Eosinophils # 0.3 K/mcL (0.0-0.6); Eosinophils % 3.4 %; Hematocrit 33.5 % (37.5-50.1); Hemoglobin 10.7 g/dL (12.9-16.9); Immature Granulocytes % 0.4 % (0-4); Lymphocytes % 12.7 %; Mean Corpuscular HGB Conc 31.9 g/dL (31.6-35.5); Mean Corpuscular Hemoglobin 30.7 pg (28.0-33.3); Mean Corpuscular Volume 96.3 fL (83.0-100.0); Monocytes # 0.8 K/mcL (0.0-1.3); Monocytes % 9.9 %; Platelet Count 263 K/mcL (140-400); Red Blood Count 3.48 M/mcL (4.19-5.50); Red Cell Distribution Width 14.1 % (11.5-14.5); Segmented Neutrophils % 72.9 %
[2017-01-30 19:16] LABS: Potassium 3.9 mEq/L (3.5-4.5)
[2017-01-30] MEDS ORDERED: Naloxone 0.4 MG/ML INJ IVP PRN (21:16)
[2017-01-30] MEDS ORDERED: Acetaminophen 325 MG TABLET PO PRN (21:16)
--- NOTE | 2017-01-30 23:18 | Internal Med History&Physical ---
<Jeana Leon M - Last Filed: 01/30/17 23:33> Date of Encounter: 01/30/17 Time of Encounter: 23:14 Assessment and Plan (1) Systolic CHF, acute on chronic Current visit: No Status: Acute Patient with increased shortness of breath, especially with activity. BNP elevated to 3076. CXR shows interstitial prominence. Last Echo 01/18/17 showed EF of 20%, severely dilated left ventricle and severe global hypokinesia. Daily weights, strict I/Os, 1.5L fluid restriction. Patient given 80mg Lasix IVP by ED 40mg Lasix IVP BID Dialysis planned for tomorrow. Titrate oxygen to maintain O2 saturation > 92%. (2) Fluid overload Current visit: No Status: Acute Patient reporting increased shortness of breath. Increased weight by 8lbs in the last week. Daily weights, strict I/Os, 1.5L fluid restriction. Patient given 80mg Lasix IVP by ED 40mg Lasix IVP BID Dialysis planned for tomorrow. Qualifiers: Hypervolemia type: unspecified Qualified Code(s): E87.70 - Fluid overload, unspecified (3) ESRD (end stage renal disease) on dialysis Current visit: No Status: Acute Patient does hemodialysis MWF through a RUE AV fistula. Fistula with +bruit/+ thrill. Dr. Sylvester consulted and dialysis planned for tomorrow. (4) DVT prophylaxis Current visit: No Status: Acute ambulate with assistance anti-embolic stockings Heparin 5000u SQ BID Internal Medicine - H&P: HPI Chief complaint: shortness of breath Admitted From: Emergency Dept Plans for Post Hospital Care: Home History of present illness: Mr. Amaro is a 81 year old male with hypertension, hyperlipidemia, CHF, CAD , ischemic cardiomyopathy with pacemaker/AICD, end-stage renal disease on hemodialysis presents to the emergency department today with increased shortness of breath. Patient was recently discharged on January 22 and there was some confusion about whether he needed to restart his Lasix at home or not. Patient reports he did not take his Lasix until Tuesday. Patient reports that he did start to feel short of breath on Tuesday shortness of breath has increased since Tuesday despite having dialysis Tuesday and Tuesday and taking his Lasix daily since Tuesday. He reports an increase of weight 8 pounds. He denies any lightheadedness or dizziness. He denies any chest pain, palpitations, nausea or vomiting, abdominal pain, or diarrhea. He denies any increased lower extremity edema. Evaluation in the emergency department was significant for elevated BNP 09297. Chest x-ray showed interstitial prominence which may represent underlying fibrosis. BUN and creatinine were elevated and consistent with his baseline end-stage renal disease. He was given any units of IV Lasix in the emergency department, and nephrology was consulted. They plan for dialysis tomorrow morning. On exam, patient is alert and oriented, in no acute distress. Heart has regular rate and rhythm. Lungs have mild crackles in the bases. Past Med Surg Social Fam HX - Past Medical History Medical history: arthritis, cardiomyopathy, CHF, coronary artery disease, GERD, hyperlipidemia, hypertension, myocardial infarction, renal disease (ESRD on HD MWF), other Psychiatric history: anxiety - Past Surgical History Surgical History: angioplasty/stent, cataract, knee replacement, orthopedic, other, pacemaker/AICD, other - Social History Smoking Status: Never smoker Smokeless Tobacco Status: No Alcohol use: none Drug use: none - Family History Mother Living Status: Hx Family Cardiac Disorders: Yes Hx Family Respiratory Disorders: No Hx Family Cancer: No Hx Family GI Disorders: No Hx Family Endocrine Disorder: No Hx Family Neuromuscular Disorders: No Hx Family Neurologic Disorders: No Hx Family HEENT Disorders: No Hx Family Autoimmune Disorders: No Father Hx Family Cardiac Disorders: Yes Internal Medicine - H&P: Meds Allopurinol [Zyloprim] 100 mg PO DAILY 09/10/15 [History] Aspirin Enteric Coated [Aspirin EC] 81 mg PO DAILY 09/10/15 [History] Clopidogrel [Plavix] 75 mg PO QAM 09/10/15 [History] Finasteride [Proscar] 5 mg PO QPM 09/10/15 [History] Isosorbide MONOnitrate (24 HR) [Imdur] 60 mg PO QAM 09/10/15 [History] Metoprolol XL (24 HR) Succ [Toprol XL] 25 mg PO QAM 09/10/15 [History] Simvastatin [Zocor] 40 mg PO QPM tablet 11/11/15 [Rx] Ascorbate Calcium [Vitamin C] 500 mg PO DAILY 01/17/17 [History] Calcitriol [Rocaltrol] 0.25 mcg PO DAILY 01/17/17 [History] Cholecalciferol (D-3) [Vitamin D] 5,000 unit PO DAILY 01/17/17 [History] Lisinopril [Zestril] 10 mg PO DAILY 01/17/17 [History] Escitalopram [Lexapro] 10 mg PO DAILY #30 tablet 01/22/17 [Rx] Tamsulosin [Flomax] 0.4 mg PO QAM capsule 01/22/17 [Rx] Allergies No Known Allergies Allergy (Verified 01/30/17 18:33) All Systems PM: A 10-system review of systems was performed and is negative for pertinent findings except as documented above in the HPI. - Constitutional Constitutional: no chills, no fever(s), no night sweats - EENT Eyes: no change in vision, no discharge, no pain, no photophobia Ears: no ear discharge, no ear pain, no tinnitus Nose, mouth and throat: no dysphagia, no nasal discharge, no neck pain, no sore throat - Cardiovascular Cardiovascular ROS IM: dyspnea, dyspnea on exertion, no chest pain, no diaphoresis, no lightheadedness, no palpitations, no syncope - Respiratory Respiratory: cough, dyspnea, dyspnea on exertion, no wheezing, no excessive phlegm production - Gastrointestinal Gastrointestinal: no abdominal pain, no diarrhea, no hematemesis, no hematochezia, no melena, no nausea, no vomiting - Musculoskeletal Musculoskeletal ROS IM: no numbness, no tingling - Integumentary Integumentary IM: no rash, no unusual bruising - Neurological Neurological ROS: no confusion, no convulsions, no focal weakness, no numbness, no tingling, no tremor(s) - Hematologic/Lymphatic Hematologic/Lymphatic: no easy bruising - Constitutional Vitals: Temp Pulse Resp BP Pulse Ox 97.8 F 86 18 91/72 96 01/30/17 21:43 01/30/17 21:43 01/30/17 21:43 01/30/17 21:43 01/30/17 19:41 General appearance: Present: A&O X 3, pleasant, no acute distress - Head Head exam: Present: atraumatic, normocephalic - Eye Eye exam: Present: PERRL, conjuntiva pink, sclera anicteric Pupils: Present: PERRL - Neck Neck exam general surgery: Present: supple, trachea midline. Absent: lymphadenopathy - Respiratory Respiratory exam: Present: rales (mild crackles in bilateral bases). Absent: accessory muscle use, rhonchi, wheezes - Cardiovascular Cardiovascular exam: Present: RRR, +S1, +S2. Absent: diastolic murmur, gallop, rubs, systolic murmur - GI/Abdominal GI/Abdominal exam: Present: normal bowel sounds, soft, no peritoneal signs. Absent: distended, tenderness - Extremities Exam Extremities exam: Present: warm, radial pulses palpable and symetrical. Absent : calf tenderness, cyanotic, pedal edema - Neurological Exam Neurological exam: Present: CN II-XII intact, oriented X3, no focal deficits. Absent: facial droop, speech deficit - Skin Skin exam: Present: dry, intact Internal Med - H&P Results - Labs CBC & Chem 7: 01/30/17 18:53 01/30/17 18:53 Labs: All Lab Results (24 Hours) 01/30/17 01/30/17 01/30/17 Range/Units 18:53 18:53 18:53 WBC 8.2 (4.3-11.1) K/mcL RBC 3.48 L (4.19-5.50) M/mcL Hgb 10.7 L (12.9-16.9) g/dL Hct 33.5 L (37.5-50.1) % MCV 96.3 (83.0-100.0) fL MCH 30.7 (28.0-33.3) pg MCHC 31.9 (31.6-35.5) g/dL RDW 14.1 (11.5-14.5) % Plt Count 263 (140-400) K/mcL MPV 11.0 (9.4-12.4) fL Immature Gran % 0.4 (0-4) % Seg Neutrophils % 72.9 % Lymphocytes % 12.7 % Monocytes % 9.9 % Eosinophils % 3.4 % Basophils % 0.7 % Neutrophils # 6.0 (1.6-8.9) K/mcL Lymphocytes # 1.0 (0.6-4.6) K/mcL Monocytes # 0.8 (0.0-1.3) K/mcL Eosinophils # 0.3 (0.0-0.6) K/mcL Basophils # 0.1 (0.0-0.2) K/mcL Sodium 138 (136-145) mEq/L Potassium 3.9 (3.5-4.5) mEq/L Chloride 101 (98-109) mEq/L Carbon Dioxide 21 (19-29) mEq/L BUN 54 H (8-26) mg/dL Creatinine 4.18 H (0.72-1.25) mg/dL Est GFR ( Amer) 17 L (> 60) Est GFR (Non-Af Amer) 14 L (> 60) BUN/Creatinine Ratio 13 (6-26) Glucose 115 H (70-99) mg/dL Calculated Osmolality 302 H (280-300) Calcium 10.0 (8.6-10.8) mg/dL Troponin I 0.04 H* (0-0.03) ng/mL B-Natriuretic Peptide (0-100) pg/mL 01/30/17 Range/Units 18:53 WBC (4.3-11.1) K/mcL RBC (4.19-5.50) M/mcL Hgb (12.9-16.9) g/dL Hct (37.5-50.1) % MCV (83.0-100.0) fL MCH (28.0-33.3) pg MCHC (31.6-35.5) g/dL RDW (11.5-14.5) % Plt Count (140-400) K/mcL MPV (9.4-12.4) fL Immature Gran % (0-4) % Seg Neutrophils % % Lymphocytes % % Monocytes % % Eosinophils % % Basophils % % Neutrophils # (1.6-8.9) K/mcL Lymphocytes # (0.6-4.6) K/mcL Monocytes # (0.0-1.3) K/mcL Eosinophils # (0.0-0.6) K/mcL Basophils # (0.0-0.2) K/mcL Sodium (136-145) mEq/L Potassium (3.5-4.5) mEq/L Chloride (98-109) mEq/L Carbon Dioxide (19-29) mEq/L BUN (8-26) mg/dL Creatinine (0.72-1.25) mg/dL Est GFR ( Amer) (> 60) Est GFR (Non-Af Amer) (> 60) BUN/Creatinine Ratio (6-26) Glucose (70-99) mg/dL Calculated Osmolality (280-300) Calcium (8.6-10.8) mg/dL Troponin I (0-0.03) ng/mL B-Natriuretic Peptide 3076 H (0-100) pg/mL - Diagnostic Studies Chest x-ray Additional comments: Chest X-Ray 01/30/17 18:41 IMPRESSION: Interstitial prominence which appears somewhat coarse and may represent underlying fibrosis. This is similar to previous exam. D/ / Yanely Restrepo MD / Yanely Restrepo MD Interpreting Provider: Yanely Restrepo MD <KrauseRamiro Garcia - Last Filed: 01/31/17 06:45> Date of Encounter: 01/30/17 Internal Medicine - H&P: HPI History of present illness: Mr. Amaro is a 81 year old male due to [facility] through the emergency department when he presented with concerns of difficulty in breathing associated with generalized weakness postural dizziness and presyncope. Preliminary impression suggest acute symptomatic volume overload in a patient with end-stage renal disease hemodialysis dependent. The omission of a scheduled diuretic therapies and likely dietary indiscretions contributed to this presentation and need for inpatient intervention. The patient was visited and interviewed and examined. I examined this patient and my medical decision-making was reviewed with the Advanced Practice Nurse, Ms. Jeana Leon. For this encounter, I have reviewed the CIRCUS LABORER documentation, treatment plan, and medical decision making. I agree with the documented findings, disposition and treatment plan as described except to the extent set forth below. Cumulative laboratory and radiographic data base was reviewed, considered and discussed. Given the patient's presenting concerns, past medical history, clinical findings and symptoms, he is admitted at this time to undergo further evaluation and disposition. All Systems PM: A 10-system review of systems was performed and is negative for pertinent findings except as documented above in the HPI. - Constitutional Vitals: Temp Pulse Resp BP Pulse Ox 97.6 F 82 18 104/69 98 01/31/17 05:08 01/31/17 05:08 01/31/17 05:08 01/31/17 05:08 01/31/17 05:08 Internal Med - H&P Results - Labs CBC & Chem 7: 01/31/17 02:43 01/31/17 02:43 Labs: Short CBC 01/31/17 Range/Units 02:43 WBC 6.7 (4.3-11.1) K/mcL Hgb 9.9 L (12.9-16.9) g/dL Hct 30.2 L (37.5-50.1) % Plt Count 228 (140-400) K/mcL Neutrophils # 4.3 (1.6-8.9) K/mcL BMP 01/31/17 02:43 Sodium 138 Potassium 3.7 Chloride 102 Carbon Dioxide 23 BUN 56 H Creatinine 4.13 H Glucose 126 H Calcium 9.4 - Attending Attestation My signature below is to certify that this patient is under my care and that I, or nurse practitioner working with me, Jeanacatia Leon, has had a face-to- face encounter with this patient. Plan of care has been reviewed and discussed in detail with the patient. Questions were addressed. Advance care directive discussion briefly addressed. The patient does not declare any healthcare restrictions at this time. Outpatient medication schedules will be reviewed, confirmed and facilitated as appropriate. Reconciliation of home treatments including adjustments, substitutions and reintroduction into the treatment regimen will address necessary maintenance therapies for chronic pre-existing medical conditions. Hospital course is dictated by clinical findings, treatment response and potential interventions. The patient is at risk of further clinical decline due to his advanced age, chief complaint and associated comorbidities. Condition is serious. Prognosis is guarded. CODE STATUS is full.
[2017-01-31] MEDS ORDERED: Furosemide 40 MG/4 ML VIAL IVP SCH (00:01)
[2017-01-31] MEDS: Furosemide 40 MG/4 ML VIAL IVP SCH ×4 (01:32→22:10)
[2017-01-31 03:21] LABS: Basophils # 0.1 K/mcL (0.0-0.2); Basophils % 0.7 %; Eosinophils # 0.3 K/mcL (0.0-0.6); Hematocrit 30.2 % (37.5-50.1); Hemoglobin 9.9 g/dL (12.9-16.9); Immature Granulocytes % 0.3 % (0-4); Lymphocytes # 1.3 K/mcL (0.6-4.6); Mean Corpuscular HGB Conc 32.8 g/dL (31.6-35.5); Mean Corpuscular Hemoglobin 31.2 pg (28.0-33.3); Mean Corpuscular Volume 95.3 fL (83.0-100.0); Mean Platelet Volume 11.3 fL (9.4-12.4); Monocytes # 0.8 K/mcL (0.0-1.3); Monocytes % 11.5 %; Neutrophils # 4.3 K/mcL (1.6-8.9); Platelet Count 228 K/mcL (140-400); Red Blood Count 3.17 M/mcL (4.19-5.50); Red Cell Distribution Width 14.1 % (11.5-14.5); Segmented Neutrophils % 64.5 %
[2017-01-31 03:30] LABS: Calcium 9.4 mg/dL (8.6-10.8); Potassium 3.7 mEq/L (3.5-4.5)
[2017-01-31] MEDS: *HR* Heparin 5,000 UNIT/ML VIAL SQ SCH ×2 (05:23→17:22)
[2017-01-31] MEDS: Aspirin Enteric Coated 81 MG Tablet PO SCH (08:54)
[2017-01-31] MEDS: Cholecalciferol (D-3) 1,000 UNIT TABLET PO SCH (08:54)
[2017-01-31] MEDS ORDERED: 0.9 % Sodium Chloride 250 ML IVC PRN (10:55)
--- NOTE | 2017-01-31 11:52 | Electrocardiograph Report ---
[place] [id number] Test Date: 2017-01-30 Pat Name: Av Amaro Department: 103 Room: 2A23 Gender: M Change Room Attendant: ANJUM : 1935 Requested By: Kieran Borjas Order Number: [id number] Reading MD: Su Mackenzie Measurements Intervals [place] Rate: 95 P: 30 RI: 138 QRS: -80 QRSD: 215 T: 110 QT: 466 QTc: 518 Interpretive Statements ELECTRONIC VENTRICULAR PACEMAKER Electronically Signed On 01-31-2017 11:51:12 EDT by Su Mackenzie
--- NOTE | 2017-01-31 11:53 | Nephrology Consult Note ---
<Nadia Baker - Last Filed: 01/31/17 11:51> Date of Encounter: 01/31/17 Time of Encounter: 11:52 Assessment and Plan (1) ESRD (end stage renal disease) on dialysis Current Visit: No Status: Chronic patient on M-W-F dialysis he will need PEDIATRIC NEPHROLOGIST today counseled on use of lasix on non-dialysis days, fluid restriction, and low sodium diet (2) Congestive heart failure Current Visit: No Status: Chronic echo 01/17 LVEF 20% Qualifiers: Congestive heart failure type: systolic Congestive heart failure chronicity : chronic Qualified Code(s): I50.22 - Chronic systolic (congestive) heart failure History of Present Illness - Reason for Consult Consult date: 01/31/17 end stage renal disease - Chief Complaint dialysis - History of Present Illness 81 yo male with a PMH of CHF and ESRD on dialysis presents with increasing shortness of breath not resolved by oral lasix. He was given IV lasix in the ER and this morning he feels much better. Past Med Surg Social Fam HX - Past Medical History Medical history: arthritis, cardiomyopathy, CHF, coronary artery disease, GERD, hyperlipidemia, hypertension, myocardial infarction, renal disease (ESRD on HD MWF), other Psychiatric history: anxiety - Past Surgical History Surgical History: angioplasty/stent, cataract, knee replacement, orthopedic, other, pacemaker/AICD, other - Social History Smoking Status: Never smoker Smokeless Tobacco Status: No Alcohol use: none Drug use: none - Family History Mother Living Status: Hx Family Cardiac Disorders: Yes Hx Family Respiratory Disorders: No Hx Family Cancer: No Hx Family GI Disorders: No Hx Family Endocrine Disorder: No Hx Family Neuromuscular Disorders: No Hx Family Neurologic Disorders: No Hx Family HEENT Disorders: No Hx Family Autoimmune Disorders: No Father Hx Family Cardiac Disorders: Yes Medications and Allergies Allopurinol [Zyloprim] 100 mg PO DAILY 09/10/15 [History] Aspirin Enteric Coated [Aspirin EC] 81 mg PO DAILY 09/10/15 [History] Clopidogrel [Plavix] 75 mg PO QAM 09/10/15 [History] Finasteride [Proscar] 5 mg PO QPM 09/10/15 [History] Isosorbide MONOnitrate (24 HR) [Imdur] 60 mg PO QAM 09/10/15 [History] Metoprolol XL (24 HR) Succ [Toprol XL] 25 mg PO QAM 09/10/15 [History] Simvastatin [Zocor] 40 mg PO QPM tablet 11/11/15 [Rx] Ascorbate Calcium [Vitamin C] 500 mg PO DAILY 01/17/17 [History] Calcitriol [Rocaltrol] 0.25 mcg PO DAILY 01/17/17 [History] Cholecalciferol (D-3) [Vitamin D] 5,000 unit PO DAILY 01/17/17 [History] Lisinopril [Zestril] 10 mg PO DAILY 01/17/17 [History] Escitalopram [Lexapro] 10 mg PO DAILY #30 tablet 01/22/17 [Rx] Tamsulosin [Flomax] 0.4 mg PO QAM capsule 01/22/17 [Rx] Allergies No Known Allergies Allergy (Verified 01/30/17 18:33) Review of Systems Constitutional: no excessive sweating, no weight loss Eyes: bilateral: blurred vision (patient denies), diplopia (patient denies) Nose, mouth and throat: no dizziness, no headache(s) Cardiovascular: no chest pain, no palpitations Respiratory: no cough, no dyspnea Gastrointestinal: no abdominal pain, no change in bowel habits Musculoskeletal: no muscle weakness, no numbness Integumentary: no hirsutism, no striae Psychiatric: no depression, no difficulty concentrating Endocrine: as per HPI Hematologic/Lymphatic: no easy bruising, no lymphadenopathy Exam - Vital Signs Vital signs: Initial Vital Signs Temp Pulse Resp BP Pulse Ox 97.8 F 76 20 131/93 94 01/30/17 18:27 01/30/17 18:27 01/30/17 18:27 01/30/17 18:27 01/30/17 18:27 Vital Signs - Last 8 Hours Temp Pulse Resp BP Pulse Ox 01/31/17 11:14 97.7 F 85 16 114/88 96 01/31/17 09:00 96 01/31/17 07:54 96.8 F L 87 16 96/59 96 01/31/17 05:08 97.6 F 82 18 104/69 98 01/31/17 04:59 96 Intake and Output 01/30/17 01/31/17 01/31/17 23:59 07:59 15:59 Intake Total 100 / 100 480 / 480 Output Total 400 / 400 500 / 500 0 / 0 Balance -400 / -400 -400 / -400 480 / 480 Intake: Oral 100 / 100 480 / 480 Output: Urine 400 / 400 500 / 500 0 / 0 Other: Meal Breakfast Percent of Meal Consumed 100% Weight 70.845 kg Patient Weight 01/31/17 23:59 Weight 70.845 kg - General Appearance General appearance: well-developed, well-nourished, appears started age EENT: mucous membranes moist Neck: supple Respiratory: clear Cardiology: no murmurs, regular rate, regular rhythm, normal S1, normal S2 - Dialysis Access Dialysis Vascular Access: Arteriovenous Fistula (right arm) Integumentary: no rash, warm and dry Neurologic: no focal deficit, alert and oriented x3, CN 3-12 intact Musculoskeletal: no deformities Psychiatric: mood/affect appropriate, cooperative Results - Lab Results 01/31/17 02:43 01/31/17 02:43 Most recent lab results Calcium 9.4 mg/dL (8.6-10.8) 01/31/17 02:43 Consult Discharge Plan - Plan Referrals: Beverly Chen MD [Primary Care Provider] - 02/03/17 2:15 pm (Please follow up as schedule...) <Willow Valentin - Last Filed: 01/31/17 19:57> Date of Encounter: 01/31/17 Exam - Vital Signs Vital signs: Initial Vital Signs Temp Pulse Resp BP Pulse Ox 97.8 F 76 20 131/93 94 01/30/17 18:27 01/30/17 18:27 01/30/17 18:27 01/30/17 18:27 01/30/17 18:27 Vital Signs - Last 8 Hours Temp Pulse Resp BP Pulse Ox 01/31/17 19:17 98.2 F 71 18 90/59 96 01/31/17 16:15 98.2 F 78 16 90/65 99 01/31/17 15:45 97.9 F 76 16 99/60 97 01/31/17 15:44 96/70 01/31/17 15:00 20 96/70 01/31/17 14:45 91/64 01/31/17 14:30 85/48 04/03/17 14:15 96/65 01/31/17 14:00 94/65 01/31/17 13:45 96/62 01/31/17 13:30 87/61 01/31/17 13:15 88/59 01/31/17 13:00 90/65 01/31/17 12:45 94/69 01/31/17 12:30 108/70 01/31/17 12:15 86/70 01/31/17 12:00 98/64 Intake and Output 01/31/17 01/31/17 01/31/17 07:59 15:59 23:59 Intake Total 100 / 100 1080 / 1080 240 / 240 Output Total 500 / 500 3600 / 3600 Balance -400 / -400 -2520 / -2520 240 / 240 Intake: Oral 100 / 100 480 / 480 240 / 240 Intake, Rinseback and 600 / 600 Flushes Output: Urine 500 / 500 0 / 0 Total Dialysis Output 3600 / 3600 Other: Meal Breakfast Dinner Percent of Meal Consumed 100% 100% Weight 70.845 kg Hemodialysis Net Fluid 3600 Removed (mL) Patient Weight 01/31/17 23:59 Weight 70.845 kg Results - Lab Results 01/31/17 02:43 01/31/17 02:43 Most recent lab results Calcium 9.4 mg/dL (8.6-10.8) 01/31/17 02:43 - Attending Attestation I examined this patient and my medical decision-making was reviewed with the POWERTRAIN ENGINEER/PA/Advanced Practice Nurse/Resident Physician. I agree with the documented findings, disposition and treatment plan as described except to the extent set forth below. In brief, 81 y o male with PMH of HTN, high chol, CAD, CHF with lastest EF of 20 % and ESRD on HD readmitted after being discharged january 22 with progressive SOB. Pt reports stopping his lasix on discharge to some unknown reason but resumed once SOB began on tuesday. This said SOB did not stop even after HD on tuesday as he reports all the fluid gained was not removed due to hypotension. Pt seen and examined on HD this am reports feeling better in terms of SOB after he received lasix 80mg iv overnight in the ER with subsequent UOP. On exam; lungs with good areation although slightly decreased BS at bases Will proceed with HD for 3.5hrs with UF goal of approx. 3kg as tolerated. will verify EDW with HD unit Discussed fluid restriction Discussed adherence to low sodium diet Hgb noted low at 9.9, will monitor and dose with EPO as needed
[2017-01-31] MEDS ORDERED: 0.9 % Sodium Chloride 2,000 ML ONE (14:49)
[2017-01-31] MEDS: Metoprolol XL (24 HR) Succ 25 MG TAB.ER.24H PO SCH (15:55)
[2017-01-31] MEDS: Isosorbide MONOnitrate (24 HR) 60 MG TAB.ER.24H PO SCH (15:55)
[2017-01-31] MEDS ORDERED: Finasteride 5 MG TABLET PO SCH (18:00)
--- NOTE | 2017-01-31 18:19 | Event Note ---
Date of Encounter: 01/31/17 Time of Encounter: 18:15 Mr. Amaro is a 81 year old male with hypertension, hyperlipidemia, CHF, CAD , ischemic cardiomyopathy with pacemaker/AICD, end-stage renal disease on hemodialysis presents to the emergency department today with increased shortness of breath. CXR shows cardiomegaly and underlying fibrosis, he was given IV Lasix at ED. He was not taking Lasix at home due to confusion from whether he should take it or not, he was recently discharged from the hospital. He reports much improvement after restarting on Lasix, status post hemodialysis today. Renal has been consulted, will follow recommendations. clinically better, sating 99 on 2 l, may possible dc tomm on oral lasix.
[2017-02-01] MEDS: *HR* Heparin 5,000 UNIT/ML VIAL SQ SCH (05:12)
[2017-02-01 07:28] VITALS: BP 88/60
[2017-02-01] MEDS: Cholecalciferol (D-3) 1,000 UNIT TABLET PO SCH (08:25)
[2017-02-01] MEDS: Isosorbide MONOnitrate (24 HR) 60 MG TAB.ER.24H PO SCH (08:25)
[2017-02-01] MEDS: Furosemide 40 MG/4 ML VIAL IVP SCH (08:25)
[2017-02-01] MEDS: Aspirin Enteric Coated 81 MG Tablet PO SCH (08:26)
[2017-02-01] MEDS: Metoprolol XL (24 HR) Succ 25 MG TAB.ER.24H PO SCH (08:26)
--- NOTE | 2017-02-01 09:00 | Discharge Summary ---
Date of Encounter: 02/01/17 Time of Encounter: 08:56 - Discharge Diagnosis (1) Systolic CHF, acute on chronic Priority: Primary Status: Acute (2) History of end stage renal disease Priority: Secondary Status: Chronic (3) Cardiomyopathy, ischemic Priority: Secondary Status: Chronic (4) Hypertension Priority: Secondary Status: Chronic Qualifiers: Hypertension type: essential hypertension Qualified Code(s): I10 - Essential (primary) hypertension (5) Dyslipidemia Priority: Secondary Status: Chronic (6) CAD (coronary artery disease), [place] coronary artery Priority: Secondary Status: Chronic Qualifiers: [place] vs. 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 Priority: Secondary Status: Chronic - Discharge Medications Prescriptions: Furosemide [Lasix] 20 mg PO BID #30 tablet Isosorbide MONOnitrate (24 HR) [Imdur] 30 mg PO DAILY #30 tab.er.24h Metoprolol XL (24 HR) Succ [Toprol Xl] 12.5 mg PO DAILY #30 tab.er.24h Home Medications: Allopurinol [Zyloprim] 100 mg PO DAILY 09/10/15 [History] Aspirin Enteric Coated [Aspirin EC] 81 mg PO DAILY 09/10/15 [History] Clopidogrel [Plavix] 75 mg PO QAM 09/10/15 [History] Finasteride [Proscar] 5 mg PO QPM 09/10/15 [History] Simvastatin [Zocor] 40 mg PO QPM tablet 11/11/15 [Rx] Ascorbate Calcium [Vitamin C] 500 mg PO DAILY 01/17/17 [History] Calcitriol [Rocaltrol] 0.25 mcg PO DAILY 01/17/17 [History] Cholecalciferol (D-3) [Vitamin D] 5,000 unit PO DAILY 01/17/17 [History] Escitalopram [Lexapro] 10 mg PO DAILY #30 tablet 01/22/17 [Rx] Tamsulosin [Flomax] 0.4 mg PO QAM capsule 01/22/17 [Rx] Furosemide [Lasix] 20 mg PO BID #30 tablet 02/01/17 [Rx] Isosorbide MONOnitrate (24 HR) [Imdur] 30 mg PO DAILY #30 tab.er.24h 02/01/17 [ Rx] Metoprolol XL (24 HR) Succ [Toprol Xl] 12.5 mg PO DAILY #30 tab.er.24h 02/01/17 [Rx] Allergies/Adverse Reactions: Allergies No Known Allergies Allergy (Verified 01/30/17 18:33) Date of admission: 01/30/17 20:47 Primary care physician: Beverly Espinosa Discharging clinician: Juanita Forrester Anticipated date of discharge: 02/01/17 - Patient Status Disposition: Home, Self-Care Condition: Fair Functional capacity at discharge: independent ambulation Overall status at discharge: patient is progressing back to baseline - Discharge Instructions Instructions: Metoprolol (By mouth), Furosemide (By mouth), Isosorbide Mononitrate (By mouth), Heart Failure (DC) Follow Up With: Beverly Chen MD [Primary Care Provider] - 02/03/17 2:15 pm (Please follow up as schedule...) Additional Instructions: F/up with HD 3 times/week- MWF F/up with Cardiology as scheduled - Diet and Activity Activity: resume usual activities as tolerated, wear oxygen at all times Diet: low fat, low cholesterol, low salt diet (fluid restriction to 1.2L/day) Hospital course: Mr. Amaro is a 81 year old male with multiple medical problems who was admitted with worsening shortness of breath and mild confusion. Patient does have a history of severe systolic congestive heart failure with EF around 20% as noted on echocardiogram that was done last month. He was noted to have missed a few doses of his oral Lasix at home due to some confusion regarding the schedule. He also has a history of end-stage renal disease, on chronic hemodialysis. Nephrology was consulted and patient received his regular hemodialysis sessions with some improvement in symptoms. He also responded well to a dose of IV Lasix given in the emergency room, after which his home regimen was followed. Patient feels significantly better today and remains asymptomatic. However, he is noted to have borderline low blood pressure with systolic blood pressure in high 80s to low 90s. This has been discussed with nephrology and patient is being discharged on oral Lasix to be taken only on non-hemodialysis days and the dose of Imdur and metoprolol have been decreased. Lisinopril is currently being held despite his low ejection fraction as he cannot tolerate it due to hypotension. He is otherwise medically stable for discharge. - Time Spent with Patient Total time spent providing and/or coordinating discharge services: Greater than 30 minutes (45 min) - Constitutional Vitals: Temp Pulse Resp BP Pulse Ox 98.0 F 79 17 88/60 97 02/01/17 07:27 02/01/17 07:27 02/01/17 07:27 02/01/17 07:27 02/01/17 08:39 General appearance: Present: A&O X 3, answers questions appropriately - Respiratory Respiratory exam: Present: CTAB. Absent: accessory muscle use, rales, rhonchi, wheezes - Cardiovascular Cardiovascular exam: Present: RRR, +S1, +S2, systolic murmur. Absent: diastolic murmur, gallop, rubs
[2017-02-01] MEDS ORDERED: Furosemide 20 MG TABLET PO STA (10:30)
--- NOTE | 2017-02-01 17:43 | Nephrology Progress Note ---
Date of Encounter: 02/01/17 Time of Encounter: 10:20 - Assessment and Plan (1) End-stage renal disease Status: Acute Cont HD M/W/F with UF profiling to minimize intradialytic hypotension. Would reduce the Imdur, BB dosing and hold the ADRIANNA. Diuretics acceptable on non-dialysis days TTS/Sun (2) Cardiomyopathy, ischemic Status: Chronic (3) Hypotension Status: Resolved Qualifiers: Hypotension type: hemodialysis-associated hypotension Qualified Code(s): I95.3 - Hypotension of hemodialysis Subjective Principal diagnosis: ESRD Interval history: Pt was s/e earlier today/this AM. He did not affirm N/V/D or any new major complaints. Objective - Vital Signs Vital signs: Vital Signs Temp Pulse Resp BP Pulse Ox 02/01/17 08:39 97 02/01/17 07:27 98.0 F 79 17 88/60 97 02/01/17 04:46 98.3 F 81 18 93/60 94 02/01/17 00:24 97.5 F L 87 18 87/62 97 01/31/17 22:16 96 01/31/17 19:17 98.2 F 71 18 90/59 96 Intake and Output 02/01/17 02/01/17 02/01/17 07:59 15:59 23:59 Intake Total 0 / 0 100 / 100 Output Total 100 / 100 0 / 0 Balance -100 / -100 100 / 100 Intake: Oral 0 / 0 100 / 100 Output: Urine 100 / 100 0 / 0 Other: Meal Breakfast Percent of Meal Consumed 70% - General Appearance General appearance: Present: well-developed, well-nourished, appears started age EENT: Present: ATNC, PERRL, mucous membranes moist Neck: Present: supple Respiratory: Present: clear Cardiology: Present: edema (trace edema b/l), normal S1, normal S2 Gastrointestinal: Present: normoactive bowel sounds, no tenderness, no guarding Integumentary: Present: no rash, warm and dry Neurologic: Present: no focal deficit, no asterixis, alert and oriented x3 Musculoskeletal: Present: no deformities, no erythema, no cyanosis Psychiatric: Present: mood/affect appropriate, cooperative - Lab 01/31/17 02:43 01/31/17 02:43 Most recent lab results Calcium 9.4 mg/dL (8.6-10.8) 01/31/17 02:43 Consult Discharge Plan - Plan Instructions: Metoprolol (By mouth), Furosemide (By mouth), Isosorbide Mononitrate (By mouth), Heart Failure (DC) Additional Instructions: F/up with HD 3 times/week- MWF F/up with Cardiology as scheduled Referrals: Beverly Chne MD [Primary Care Provider] - 02/03/17 2:15 pm (Please follow up as schedule...) Prescriptions: Furosemide [Lasix] 20 mg PO BID #30 tablet Isosorbide MONOnitrate (24 HR) [Imdur] 30 mg PO DAILY #30 tab.er.24h Metoprolol XL (24 HR) Succ [Toprol Xl] 12.5 mg PO DAILY #30 tab.er.24h
== END 2017-02-01 10:43 | disposition home or self-care (01) ==
LOC: EMEROO 18:25 → 2ANU 18:25 → SUATTDRO 20:47 → 2ANU 21:07
PROVIDERS: ADMIT Internal Medicine; ATTEND Internal Medicine

== ENCOUNTER 2017-06-13 21:05 | Inpatient (IN) ==
[~2017-06-13 21:05] MED LIST: *HR* Etomidate 20 MG/10 ML AMPUL IVP ONE; *HR* Rocuronium Bromide 100 MG/10 ML VIAL IVC ONE
[2017-06-13] MEDS ORDERED: Propofol 500 MG/50 ML INFUS..BTL ONE (21:17)
[2017-06-13] MEDS ORDERED: *HR* Rocuronium Bromide 50 MG/5 ML VIAL IVP ONE (21:25)
[2017-06-13] MEDS ORDERED: *HR* Etomidate 20 MG/10 ML AMPUL IVP ONE (21:25)
[2017-06-13] MEDS ORDERED: *HR* FentaNYL (PF) 100 MCG/2 ML VIAL IVP ONE (21:26)
--- NOTE | 2017-06-13 21:29 | Emergency Department Note ---
Disposition Clinical Impression: Respiratory distress, Hypokalemia, Severe anemia, ESRD (end stage renal disease ) on dialysis, History of CHF (congestive heart failure), History of COPD, Septic shock, CHF exacerbation Pneumonia Qualifiers: Pneumonia type: due to unspecified organism Laterality: left Lung location: lower lobe of lung Qualified Code(s): J18.1 - Lobar pneumonia, unspecified organism Disposition: Admitted As Inpatient Condition: Critical Time of Disposition: 22:52 SOB HPI - General Chief Complaint: ED Shortness of Breath/Dyspnea Stated Complaint: NASRA Time Seen by Provider: 06/13/17 21:23 Source: family, EMS Mode of arrival: EMS Limitations: altered mental status Nursing Notes Reviewed: Yes Vital Signs Reviewed: Yes - History of Present Illness Patient is 81-year-old male was brought in via EMS for shortness of breath and was placed on CPAP by EMS in route. Patient had dialysis earlier today but had shortness of breath before dialysis and continued to have shortness of breath with steady decline. Patient received versed by EMS to help calm the patient on CPAP. Patient also has a history of CHF and COPD. - Related Data Home Medications Medication Instructions Recorded Confirmed Allopurinol [Zyloprim] 200 mg PO DAILY 09/10/15 06/13/17 Aspirin Enteric Coated [Aspirin EC] 81 mg PO DAILY 09/10/15 06/13/17 Clopidogrel [Plavix] 75 mg PO QAM 09/10/15 06/13/17 Finasteride [Proscar] 5 mg PO QPM 09/10/15 06/13/17 Ammonium Lactate [Anna-Hydrolac] 1 appl TP BID 06/13/17 06/13/17 Fluticasone Propionate Nasal 100 mcg NS DAILY 06/13/17 06/13/17 [Flonase] Furosemide [Lasix] 20 mg PO TID 06/13/17 06/13/17 Oxygen 2 - 3 l NS AD 06/13/17 06/13/17 Previous Rx's Medication Instructions Recorded Simvastatin [Zocor] 40 mg PO QPM tablet 11/11/15 Escitalopram [Lexapro] 10 mg PO DAILY #30 tablet 01/22/17 Tamsulosin [Flomax] 0.4 mg PO QAM capsule 01/22/17 Isosorbide MONOnitrate (24 HR) 30 mg PO DAILY #30 tab.er.24h 02/01/17 [Imdur] Metoprolol XL (24 HR) Succ [Toprol 12.5 mg PO DAILY #30 tab.er.24h 02/01/17 Xl] Allergies Allergy/AdvReac Type Severity Reaction Status Date / Time No Known Allergies Allergy Verified 01/30/17 18:33 Limitations: ROS unobtainable due to patients medical condition Past Medical History - Past Medical History Attestation: Yes The following information was validated with the patient. Source: obtained from family Medical history: Reports: arthritis, cardiomyopathy, CHF, coronary artery disease, GERD, hyperlipidemia, hypertension, myocardial infarction, renal disease, other Surgical history: Reports: angioplasty/stent, cataract, knee replacement, orthopedic, other, pacemaker/AICD, other Psychiatric history: Reports: anxiety - Social History Smoking Status: Never smoker Smokeless Tobacco Status: No Alcohol use: Reports: none Drug use: Reports: none Physical Exam Vital Signs Temperature 0 F L 06/13/17 21:07 Pulse Rate 70 06/13/17 21:07 Respiratory Rate 24 06/13/17 21:07 Blood Pressure 101/70 06/13/17 21:07 O2 Sat by Pulse Oximetry 100 06/13/17 21:07 Temperature 0 F L 06/13/17 21:07 Pulse Rate 82 06/13/17 21:26 Respiratory Rate 11 06/13/17 21:26 Blood Pressure 96/60 06/13/17 21:26 O2 Sat by Pulse Oximetry 100 06/13/17 21:29 Oxygen Delivery Oxygen Delivery Ambu Bag -General Appearance: Patient is a 81-year-old frail thin male brought in unconscious on CPAP machine. Patient states over to BiPAP but began to increase his rate and work of breathing. Patient was found to be unresponsive. Patient was taken off BiPAP and intubated and placed on mechanical ventilation patient tolerated well no complications - Head Head exam: atraumatic, normocephalic, normal inspection - Eye Eye exam: Present: normal appearance, PERRL - ENT ENT exam: normal exam, normal oropharynx, mucous membranes very dry - Neck Neck exam: Present: normal inspection, full ROM, trachea midline, negative JVD - Chest Chest inspection: Present: Patient has bilateral equal rise and fall of chest wall. Non-tender to palpation. - Respiratory Respiratory exam: Clear to auscultation bilaterally without wheezes rales or rhonchi Cardiovascular Cardiovascular exam: Present: regular rate, normal rhythm, normal heart sounds, without murmurs rubs or gallops. - Abdominal Exam Abdominal exam: Present: soft, nondistended, Non-Tender light and deep palpation in all quadrants. Bowel sounds normoactive throughout all 4 quadrants. Negative for hyper or hyperresonance. - Extremities Exam Extremities exam: Present: normal inspection, full ROM - Back Exam Back exam: Present: normal inspection, full ROM. Absent: tenderness, CVA tenderness (R), CVA tenderness (L) - Psychiatric Psychiatric exam: Present: normal affect, normal mood - Skin Skin exam: Present: warm, dry, intact, normal color - General Limitations: altered mental status General appearance: lethargic, in distress Course - Reevaluation(s) Reevaluation #1: Patient was intubated at that side. Patient is unconscious and unresponsive while on BiPAP. Time: 21:31 Reevaluation #2: Patient's workup labs then management continue to be coordinated Time: 22:00 Reevaluation #3: Patient is being prepped for transfer to ICU Time: 22:15 - Consultations Consultation #1: Dr. Padilla the [facility] has accepted patient for admission at 2240 hrs. Time: 22:40 Vital Signs O2 Sat by Pulse Oximetry 100 06/13/17 21:05 Temperature 97.7 F 06/14/17 16:00 Pulse Rate 85 06/14/17 18:00 Respiratory Rate 18 06/14/17 19:53 Blood Pressure 95/77 06/14/17 18:00 O2 Sat by Pulse Oximetry 95 06/14/17 19:53 Oxygen Delivery Oxygen Delivery Ventilator Procedures - Intubation Time out performed: Yes sedative: Etomidate Mg Given: 20 paralytic: Rocuronium Mg Given: 60 Laryngoscope: Renetta ET Tube Size: 7.5 ET Tube Uncuffed: No Tube Secured Depth (cm): 24 Tube Secured Location: teeth Tube Placement Confirmation: visualized tube passing through cords, equal breath sounds bilaterally, no breath sounds over epigastrium, confirmation by capnometry Patient Tolerated Procedure: well, no complications Intubation Complications: none Shortness of Breath/Dyspnea - MDM Narrative Medical decision making narrative: Patient presents in respiratory distress unconscious and unresponsive on BiPAP was intubated in the ED and placed on mechanical ventilation. Post intubation chest x-ray showed possible superimposed pneumonia in the left lower lung. Sepsis workup initiated cultures ordered and emetics ordered, patient is also anemic 6.8, 2 units PRBCs ordered Patient was found to be hypokalemic at 2.4, 40 mEq of potassium IV ordered Fecal occult blood test was negative Pt currently stabilized on mechanical ventilation and sedated with dexmedetomidine. Preparations for shipment ICU being coordinated Patient's family members and POA have been briefed and updated on patient's status and will why it was necessary to intubate. Patient's POA stated that they went through the same thing with their grandmother the patient's around the time she passed. They were just really surprised that patient left their home alert and oriented and by the time he they saw him in the room he was intubated and it brought back memories from when the patient's was admitted for her last time. They stated patient is full code. I let them know that we are doing everything possible for him right now. I also let him know that the patient's condition is very serious and are interventions were necessary given his rapid decline. They do understand the patient outcome, is poor at this time. Dr. Padilla has accepted pt to ICU - Medical Records Medical records reviewed: Yes I reviewed the patient's medical records. - Lab Data Lab results reviewed: Yes I reviewed the patient's lab results. Lab results narrative: Short CBC 06/13/17 Range/Units 21:42 WBC 4.4 (4.3-11.1) K/mcL Hgb 6.8 L (12.9-16.9) g/dL Hct 21.2 L (37.5-50.1) % Plt Count 137 L (140-400) K/mcL Neutrophils # 3.1 (1.6-8.9) K/mcL BMP 06/13/17 Range/Units 21:42 Sodium 143 (136-145) mEq/L Potassium 2.4 L* (3.5-4.5) mEq/L Chloride 114 H (98-109) mEq/L Carbon Dioxide 21 (19-29) mEq/L BUN 24 (8-26) mg/dL Creatinine 1.78 H (0.72-1.25) mg/dL Glucose 117 H (70-99) mg/dL Calcium 6.3 L (8.6-10.8) mg/dL Cardiac Enzymes 06/13/17 Range/Units 21:42 Troponin I 0.04 H* (0-0.03) ng/mL Liver Function 06/13/17 Range/Units 21:42 Total Bilirubin 0.6 (0.2-1.2) mg/dL Direct Bilirubin 0.4 (0.0-0.5) mg/dL AST 13 (5-34) Units/L ALT 9 (0-55) Units/L Alkaline Phosphatase 117 (38-126) Units/L Albumin 2.0 L (3.5-5.0) g/dL Result diagrams: 06/14/17 06:34 06/14/17 07:59 - Radiology Data Radiology results reviewed: Yes I reviewed the patient's radiology results. Chest X-Ray 06/13/17 21:23 IMPRESSION: Cardiomegaly with mild pulmonary edema. Moderate asymmetric left parahilar airspace disease could represent superimposed aspiration or pneumonia. D/ / Danielito Paul MD / Danielito Paul MD Interpreting Provider: Danielito Paul MD - EKG Data EKG attestation: Yes I reviewed and interpreted this EKG. EKG results narrative: EKG taken 06/13/2017 at 2112 hrs. shows an a paced rhythm at a rate of 60 bpm wide irregular complexes. His EKG taken 01/30/2017 shows QRS complexes look similar waveform. Rate 95 bpm Critical Care Time Critical Care Time: Yes Total Critical Care Time: 60 Attestation: The high probability of a clinically significant, sudden or life threatening deterioration of the [resp] system(s) required my full and direct attention, intervention and personal management. The aggregate critical care time was [60] minutes. This time is in addition to time spent performing reported procedures but includes the following: [x] Data Review and interpretation [x] Patient assessment and monitoring of vital signs [x] Documentation [x] Medication orders and management Attestation Statement - Attestation Attestation: I personally interviewed and examined this patient and my medical decision- making was reviewed with the Resident Physician, Dr. López and Dr. Ferguson. I agree with the documented findings, disposition and treatment plan as described except to the extent set forth below. Patient is a 81-year-old elderly white male brought to us in extremis by EMS and respiratory failure. Patient is a end-stage renal patient on hemodialysis who dialyzed earlier today, with a history of CHF, COPD, CAD and has a pacemaker. Patient's granddaughter is why the medics who are present at the time of arrival. She states that he is a full code and does want intubation if necessary. She reports that he has had gradually worsening shortness of breath over the past 2 weeks significantly so following dialysis today. At the time of medic arrival patient was very combative secondary to extreme hypoxia and required chemical sedation. Patient was given Versed in route and on arrival patient is unresponsive, patient with minimal responsiveness to sternal rub. Patient was brought in on BiPAP and remained significantly hypoxic. Immediate preparation was made to electively intubate the patient for airway protection. Please see procedure note for details of intubation. Patient was also hypotensive on arrival, so I sedation was selected carefully to minimize potential worsening of his hypotension. Blood cultures, labs, and EKG was obtained on arrival as well. EKG shows a paced rhythm with no acute ischemia. Following NG placement portal chest x-ray was obtained. ET tube placement was confirmed in good position, NG tube in good position, patient with consolidation of the left lower lobe questionable atelectasis versus pneumonia as well as mild pulmonary edema and cardiomegaly. Following these results patient was started on empiric antibiotics, and was receiving gentle fluid administration for his hypotension. I agree with patient's physical exam findings as documented. Exam is very limited due to patient's unresponsive state. Patient was placed on ventilator and ABG was obtained. Patient's laboratory values show a significant anemia. Stool was sent for guaiac which was negative and patient's power of cabinetmaker apprentice for healthcare consented for transfusion. Patient was started on 2 units packed red cells. Patient was also found to be extremely hypokalemic. Considering potassium administration the setting of end-stage renal disease we started with a small dose of 40 mEq and will reevaluate before any additional potassium will be infused. Patient's blood pressure has remained between 90-100 systolic. We will hold on pressors at this time. Case was discussed with the hospitalist who accepted the patient for admission and further management. Patient remains in critical condition at this time. Family was updated as to ED results and critical status.
[2017-06-13 21:51] LABS: Basophils % 0.5 %; Eosinophils # 0.2 K/mcL (0.0-0.6); Eosinophils % 3.6 %; Hematocrit 21.2 % (37.5-50.1); Immature Granulocytes % 0.2 % (0-4); Lymphocytes # 0.5 K/mcL (0.6-4.6); Lymphocytes % 12.3 %; Mean Corpuscular HGB Conc 32.1 g/dL (31.6-35.5); Mean Corpuscular Hemoglobin 31.8 pg (28.0-33.3); Mean Corpuscular Volume 99.1 fL (83.0-100.0); Mean Platelet Volume 10.1 fL (9.4-12.4); Monocytes # 0.6 K/mcL (0.0-1.3); Neutrophils # 3.1 K/mcL (1.6-8.9); Platelet Count 137 K/mcL (140-400); Red Blood Count 2.14 M/mcL (4.19-5.50); Red Cell Distribution Width 15.9 % (11.5-14.5); Segmented Neutrophils % 70.4 %
[2017-06-13 22:09] LABS: Albumin/Globulin Ratio 0.7 (1.1-2.2); Bilirubin,Direct 0.4 mg/dL (0.0-0.5); Bilirubin,Indirect 0.2 mg/dL (0.0-1.2); Bilirubin,Total 0.6 mg/dL (0.2-1.2); Calcium 6.3 mg/dL (8.6-10.8); Globulin 2.7 g/dL (2.4-3.5); Total Protein 4.7 g/dL (6.0-8.3)
[2017-06-13 22:10] LABS: Hemoglobin 6.8 g/dL (12.9-16.9)
[2017-06-13 22:11] LABS: Potassium 2.4 mEq/L (3.5-4.5)
[2017-06-13 22:13] LABS: ABG Base Excess 3.8 mEq/L (-2.0 to 3.0); ABG HCO3 29.1 mEQ/L (21-27); ABG Oxygen Saturation 100 % (95-98); ABG PCO2 47 mmHg (35-45); ABG PO2 226 mmHg (85-104); ABG TCO2 30.5 mEq/L (20-26)
[2017-06-13 22:14] LABS: Blood Gas FiO2 100 %
[2017-06-13] MEDS: Dexmedetomidine HCl 400 MCG/100 ML MLS IVC SCH (22:27)
[2017-06-13 22:42] LABS: INR 1.3; Prothrombin Time 13.9 Seconds (9.4-12.1)
[2017-06-13 22:45] LABS: Activated Partial Thrombo Time 32.2 Seconds (26.0-36.0)
[2017-06-13 22:49] LABS: Albumin/Globulin Ratio 0.7 (1.1-2.2); Bilirubin,Direct 0.7 mg/dL (0.0-0.5); Bilirubin,Indirect 0.4 mg/dL (0.0-1.2); Globulin 4.4 g/dL (2.4-3.5); Magnesium 1.8 mg/dL (1.6-2.6); Phosphorous 4.2 mg/dL (2.3-4.7)
[2017-06-13] MEDS ORDERED: Vancomycin 1,000 MG in D5% in Water 250 ML IVPB ONE (22:49)
[2017-06-13] MEDS ORDERED: Piperacillin/Tazobactam 3.375 GM in D5% in Water (Mini-Bag+) 100 ML IVPB ONE (22:49)
[2017-06-13] MEDS ORDERED: Levofloxacin 750 MG/150 ML 750 MG/150 ML BAG IVPB ONE (22:49)
[2017-06-13 22:50] LABS: Bilirubin,Total 1.1 mg/dL (0.2-1.2); Total Protein 7.4 g/dL (6.0-8.3)
[2017-06-13] MEDS ORDERED: Potassium Chloride Elixir 20 MEQ/15 ML UDC GTUBE ONE (23:46)
[2017-06-13] MEDS ORDERED: Furosemide 40 MG/4 ML VIAL IVP ONE (23:47)
[2017-06-14] MEDS ORDERED: Acetaminophen 650 MG RECTAL SUPP RC PRN (00:10)
[2017-06-14] MEDS ORDERED: Naloxone 0.4 MG/ML INJ IVP PRN (00:10)
[2017-06-14] MEDS ORDERED: Vancomycin 1,000 MG in D5% in Water 250 ML IVPB ONE (00:15)
[2017-06-14] MEDS ORDERED: 0.9 % Sodium Chloride 250 ML ONE ×2 (00:19→05:07)
--- NOTE | 2017-06-14 00:29 | Internal Med History&Physical ---
Date of Encounter: 06/14/17 Time of Encounter: 23:00 Assessment and Plan (1) ESRD (end stage renal disease) on dialysis Current visit: Yes Status: Acute On hemodialysis. Have finished today's hemodialysis. Will consult nephrology for further management. (2) History of CHF (congestive heart failure) Current visit: Yes Status: Acute Patient has history of CHF. With LVEF 20%. On AICD. We will closely monitor fluid status. Give Lasix between two units of blood transfusion. (3) History of COPD Current visit: Yes Status: Acute Patient is on ventilation right now. No wheezing. Placed nebulizer as needed. (4) Hypokalemia Current visit: Yes Status: Acute Potassium 2.4 after hemodialysis. Give careful potassium supplement considering end-stage renal disease. Closely follow-up potassium level. (5) Pneumonia Current visit: Yes Status: Acute Chest x-ray shows pneumonia. Patient has history of cough with brownish sputum. Considering patient has end-stage renal disease, will treat patient as healthcare associated pneumonia. - Continue ventilation for supportive treatment. Closely monitor patient. - Continue Vanco, Zosyn, and Levaquin. - Follow-up blood culture and sputum culture. - Pulmonary/critical care consult. Qualifiers: Pneumonia type: due to Pneumococcus Laterality: left Lung location: lower lobe of lung Qualified Code(s): J13 - Pneumonia due to Streptococcus pneumoniae (6) Respiratory distress Current visit: Yes Status: Acute Patient was intubated in the emergency room and placed on ventilator. Closely monitor patient. (7) Severe anemia Current visit: Yes Status: Acute (8) DVT prophylaxis Current visit: No Status: Acute EPCD, no anticoagulation because of low hemoglobin (9) Elevated troponin Current visit: No Status: Acute Mild elevated troponin, possibly due to end-stage renal disease and severe CHF. Will follow-up 3 sets of troponin. Internal Medicine - H&P: HPI Chief complaint: SOB Admitted From: Home Plans for Post Hospital Care: Home History of present illness: Mr. Amaro is a 81 year old male present to ER for shortness of breath. Patient was intubated in emergency room. History of tender from patient's daughter Ms Cha Cooley, and grandson Mr. Davis Amaro. Patient has shortness of breath for 3 weeks, progressively getting worse, with cough and brownish sputum. Denies fever. Patient has history of CHF, end-stage renal disease on hemodialysis. Patient has hemodialysis today. After hemodialysis, he has shortness of breath. EMS was called, and the patient was sent to ER on BiPAP/CPAP. Patient has desaturation in emergency room and nonresponsive per ER doctor, he was intubated and placed on ventilation. Chest x-ray shows left pneumonia. Patient was admitted to ICU for further treatment. As per patient's daughter and the POA Ms. Cooley, patient is full code. Past Med Surg Social Fam HX - Past Medical History Medical history: arthritis, cardiomyopathy, CHF, coronary artery disease, GERD, hyperlipidemia, hypertension, myocardial infarction, renal disease, other Psychiatric history: anxiety - Past Surgical History Surgical History: angioplasty/stent, cataract, knee replacement, orthopedic, other, pacemaker/AICD, other - Social History Smoking Status: Never smoker Smokeless Tobacco Status: No Alcohol use: none Drug use: none - Family History Mother Living Status: Hx Family Cardiac Disorders: Yes Hx Family Respiratory Disorders: No Hx Family Cancer: No Hx Family GI Disorders: No Hx Family Endocrine Disorder: No Hx Family Neuromuscular Disorders: No Hx Family Neurologic Disorders: No Hx Family HEENT Disorders: No Hx Family Autoimmune Disorders: No Father Hx Family Cardiac Disorders: Yes Internal Medicine - H&P: Meds Allopurinol [Zyloprim] 200 mg PO DAILY 09/10/15 [History] Aspirin Enteric Coated [Aspirin EC] 81 mg PO DAILY 09/10/15 [History] Clopidogrel [Plavix] 75 mg PO QAM 09/10/15 [History] Finasteride [Proscar] 5 mg PO QPM 09/10/15 [History] Simvastatin [Zocor] 40 mg PO QPM tablet 11/11/15 [Rx] Escitalopram [Lexapro] 10 mg PO DAILY #30 tablet 01/22/17 [Rx] Tamsulosin [Flomax] 0.4 mg PO QAM capsule 01/22/17 [Rx] Isosorbide MONOnitrate (24 HR) [Imdur] 30 mg PO DAILY #30 tab.er.24h 02/01/17 [ Rx] Metoprolol XL (24 HR) Succ [Toprol Xl] 12.5 mg PO DAILY #30 tab.er.24h 02/01/17 [Rx] Ammonium Lactate [Anna-Hydrolac] 1 appl TP BID 06/13/17 [History] Fluticasone Propionate Nasal [Flonase] 100 mcg NS DAILY 06/13/17 [History] Furosemide [Lasix] 20 mg PO TID 06/13/17 [History] Oxygen 2 - 3 l NS AD 06/13/17 [History] Allergies No Known Allergies Allergy (Verified 01/30/17 18:33) ROS unobtainable: due to endotracheal tube All Systems PM: A 10-system review of systems was performed and is negative for pertinent findings except as documented above in the HPI. - Constitutional Vitals: Temp Pulse Resp BP Pulse Ox 98.1 F 66 21 71/49 94 06/14/17 00:22 06/14/17 00:22 06/14/17 00:22 06/14/17 00:22 06/14/17 00:22 Exam: sedated and on ventilation. - Head Head exam: Present: atraumatic, normocephalic - Eye Eye exam: Present: PERRL, conjuntiva pink, sclera anicteric Pupils: Present: PERRL - Neck Neck exam general surgery: Present: supple, trachea midline. Absent: lymphadenopathy - Respiratory Respiratory exam: Present: CTAB, rhonchi (Bilaterally). Absent: accessory muscle use, rales, wheezes - Cardiovascular Cardiovascular exam: Present: RRR, +S1, +S2. Absent: diastolic murmur, gallop, rubs, systolic murmur - GI/Abdominal GI/Abdominal exam: Present: normal bowel sounds, soft, no peritoneal signs. Absent: distended, tenderness - Extremities Exam Extremities exam: Present: warm, radial pulses palpable and symmetrical. Absent : calf tenderness, cyanotic, pedal edema - Neurological Exam Neurological exam: Present: no focal deficits. Absent: facial droop Additional comments: patient can be waken up, moving 4 limbs. - Skin Skin exam: Present: dry, intact Internal Med - H&P Results - Labs CBC & Chem 7: 06/13/17 21:42 06/13/17 21:42
[2017-06-14] MEDS ORDERED: Ipratropium/Albuterol Neb 3 ML IH PRN (00:50)
[2017-06-14 00:55] LABS: Bilirubin,Urine Small (Negative); Blood,Urine Moderate (Negative); Clarity,Urine Cloudy (Clear); Color,Urine Dark Yellow (Yellow); Glucose,Urine (UA) Normal (Normal); Ketones,Urine Negative (Negative); Leukocyte Esterase,Urine Negative (Negative); Nitrite,Urine Negative (Negative); Protein,Urine 100 mg/dL (Neg-Trace); Urobilinogen,Urine Normal (Normal)
[2017-06-14 00:57] LABS: Bacteria,Urine None Seen per hpf (None-Few); Hyaline Casts,Urine Few per lpf (None-Few); RBC,Urine 0-3 per hpf (0-3); Squamous Epithelial Cell,Urine Many per lpf (None-Few)
[2017-06-14] MEDS ORDERED: Vancomycin 1,000 MG in D5% in Water 250 ML IVPB SCH (01:00)
[2017-06-14 05:12] LABS: ABG Base Excess 2.3 mEq/L (-2.0 to 3.0); ABG HCO3 26.4 mEQ/L (21-27); ABG Oxygen Saturation 97 % (95-98); ABG PCO2 38 mmHg (35-45); ABG PH 7.45 pH Units (7.32-7.45); ABG PO2 89 mmHg (85-104); ABG TCO2 27.6 mEq/L (20-26)
[2017-06-14 05:13] LABS: Blood Gas FiO2 40 %
[2017-06-14] MEDS ORDERED: 0.9 % Sodium Chloride 250 ML IVC ONE (06:10)
[2017-06-14] MEDS: Pantoprazole 40 MG VIAL IVPB SCH (06:11)
[2017-06-14 06:51] LABS: Basophils % 0.5 %; Eosinophils # 0.2 K/mcL (0.0-0.6); Eosinophils % 3.5 %; Hemoglobin 10.4 g/dL (12.9-16.9); Immature Granulocytes % 0.6 % (0-4); Lymphocytes # 0.7 K/mcL (0.6-4.6); Lymphocytes % 10.4 %; Mean Corpuscular HGB Conc 32.5 g/dL (31.6-35.5); Mean Corpuscular Volume 95.5 fL (83.0-100.0); Mean Platelet Volume 10.7 fL (9.4-12.4); Monocytes # 0.9 K/mcL (0.0-1.3); Monocytes % 13.3 %; Neutrophils # 4.6 K/mcL (1.6-8.9); Platelet Count 169 K/mcL (140-400); Red Blood Count 3.35 M/mcL (4.19-5.50); Segmented Neutrophils % 71.7 %
[2017-06-14 07:41] LABS: Folate 9.6 ng/mL (7.0-31.4)
[2017-06-14] MEDS ORDERED: Dextrose Gel 15 GM PO PRN ×2 (08:13)
[2017-06-14] MEDS ORDERED: D5% in Water 1,000 ML IVC PRN (08:13)
[2017-06-14] MEDS ORDERED: *HR* Dextrose 50 % in Water (Syg) 50 ML SYRINGE IVP PRN (08:13)
--- NOTE | 2017-06-14 09:09 | Pulmonology Consult Note ---
<Tanmay Young - Last Filed: 06/14/17 13:51> Date of Encounter: 06/14/17 Time of Encounter: 09:08 Assessment and Plan (1) Respiratory distress Current Visit: Yes Status: Acute Patient is currently intubated. With the plan to extubate this morning and put the patient on BiPAP. (2) Pneumonia Current Visit: Yes Status: Acute Chest x-ray showed possible pneumonia. Patient is currently being treated with vancomycin, Zosyn and Levaquin. Qualifiers: Pneumonia type: due to unspecified organism Laterality: left Lung location: lower lobe of lung Qualified Code(s): J18.1 - Lobar pneumonia, unspecified organism (3) ESRD (end stage renal disease) on dialysis Current Visit: Yes Status: Acute Patient has a history of end-stage renal disease requiring hemodialysis. Patient last received dialysis yesterday. Nephrology has been consulted for further management. (4) Hypokalemia Current Visit: Yes Status: Acute Patient received potassium overnight. Patient's potassium is now 4.0 up from 2.4. Patient has been placed on electrolyte protocol. Nephrology has been consulted. We will continue to follow the patient's potassium levels. (5) Severe anemia Current Visit: Yes Status: Acute Patient initially had a hemoglobin of 6.8. Patient has been transfused with 2 units of blood. His repeat hemoglobin is now 10.4. We will continue to monitor the patient's hemoglobin. CT of abdomen and pelvis have been ordered and were negative for a bleed. (6) Abdominal aortic aneurysm (AAA) Current Visit: Yes Status: Acute On CT scan of the abdomen and pelvis the patient was found to have an abdominal aortic aneurysm measuring 3.1 cm. The current recommendation is to follow-up for an aneurysm of this size in 3 years. Recommend that the patient follow up as outpatient and have this reevaluated in 3 years. Qualifiers: Presence of rupture: without rupture Qualified Code(s): I71.4 - Abdominal aortic aneurysm, without rupture (7) Elevated troponin Current Visit: No Status: Acute Patient had an elevated troponin of 0.04. This was repeated and was 0.04 again. Patient has a history of elevated troponins and this is his baseline. Looking back over the past couple years his baseline is around 0.05. So this is baseline for the patient (8) DVT prophylaxis Current Visit: No Status: Acute Due to the patient having a low hemoglobin we will avoid blood thinners at this time. SCDs have ordered for the patient. History of Present Illness Consult date: 06/14/17 Requesting physician: Eden Padilla Reason for consult: pneumonia Chief complaint: Pneumonia History of present illness: Patient is a 81-year-old male that was brought to the emergency department via EMS for shortness of breath. Patient was short of breath and then received dialysis yesterday and continued to have shortness of breath. He was placed on BiPAP and continued to have desaturation in the emergency department and became unresponsive. He was then intubated and placed on a ventilator. Patient was then admitted to the ICU. Due the patient being intubated and on ventilator history was obtained from the medical records. Past Med Surg Social Fam HX - Past Medical History Medical history: arthritis, cardiomyopathy, CHF, coronary artery disease, GERD, hyperlipidemia, hypertension, myocardial infarction, renal disease, other Psychiatric history: anxiety - Past Surgical History Surgical History: angioplasty/stent, cataract, knee replacement, orthopedic, other, pacemaker/AICD, other - Social History Smoking Status: Never smoker Smokeless Tobacco Status: No Alcohol use: none Drug use: none - Family History Mother Living Status: Hx Family Cardiac Disorders: Yes Hx Family Respiratory Disorders: No Hx Family Cancer: No Hx Family GI Disorders: No Hx Family Endocrine Disorder: No Hx Family Neuromuscular Disorders: No Hx Family Neurologic Disorders: No Hx Family HEENT Disorders: No Hx Family Autoimmune Disorders: No Father Hx Family Cardiac Disorders: Yes Medications and Allergies Allopurinol [Zyloprim] 200 mg PO DAILY 09/10/15 [History] Aspirin Enteric Coated [Aspirin EC] 81 mg PO DAILY 09/10/15 [History] Clopidogrel [Plavix] 75 mg PO QAM 09/10/15 [History] Finasteride [Proscar] 5 mg PO QPM 09/10/15 [History] Simvastatin [Zocor] 40 mg PO QPM tablet 11/11/15 [Rx] Escitalopram [Lexapro] 10 mg PO DAILY #30 tablet 01/22/17 [Rx] Tamsulosin [Flomax] 0.4 mg PO QAM capsule 01/22/17 [Rx] Isosorbide MONOnitrate (24 HR) [Imdur] 30 mg PO DAILY #30 tab.er.24h 02/01/17 [ Rx] Metoprolol XL (24 HR) Succ [Toprol Xl] 12.5 mg PO DAILY #30 tab.er.24h 02/01/17 [Rx] Ammonium Lactate [Anna-Hydrolac] 1 appl TP BID 06/13/17 [History] Fluticasone Propionate Nasal [Flonase] 100 mcg NS DAILY 06/13/17 [History] Furosemide [Lasix] 20 mg PO TID 06/13/17 [History] Oxygen 2 - 3 l NS AD 06/13/17 [History] Allergies No Known Allergies Allergy (Verified 01/30/17 18:33) ROS unobtainable: due to endotracheal tube, due to mental status All Systems: A 10-system review of systems was performed and is negative for pertinent findings except as documented above in the HPI. Physical Examination Vital Signs: Vital Signs, Last 4 Hours Temp Pulse Resp BP Pulse Ox 06/14/17 08:00 75 12 81/62 97 06/14/17 07:15 70 22 77/60 98 06/14/17 07:00 98.0 F 06/14/17 06:00 68 18 82/63 96 06/14/17 05:18 17 78/57 96 General appearance: other (Patient is sedated and on a ventilator) Eyes: nonicteric ENT: oropharynx dry Neck: no lymphadenopathy, no JVD Effort: mildly labored Auscultation: bilateral: rales Cardiovascular: regular rate and rhythm Gastrointestinal: normoactive bowel sounds Integumentary: other (Patient has healed ontiveros on his right lower extremity) Extremities: no cyanosis, no edema Musculoskeletal: other (Patient has scarring from healed ontiveros on his right lower trauma) unable to assess due to mental status other (Unable to assess due to the patient being sedated) Ventilator Settings Ventilator Settings: Ventilator Settings, Last 8 Hours Ventilator Mode VC+ Ventilator Mode VC+ Ventilator Mode VC+ Ventilator Mode VC+ Ventilator Mode VC+ Ventilator Mode VC+ Ventilator Tidal Volume 450 Setting Ventilator Tidal Volume 450 Setting Ventilator Tidal Volume 450 Setting Ventilator Tidal Volume 450 Setting Ventilator Tidal Volume 450 Setting Ventilator Tidal Volume 450 Setting Ventilator Respiratory Rate 12 Setting Ventilator Respiratory Rate 12 Setting Ventilator Respiratory Rate 16 Setting Ventilator Respiratory Rate 16 Setting Ventilator Respiratory Rate 16 Setting Ventilator Respiratory Rate 16 Setting Actual Respiratory Rate 16 Actual Respiratory Rate 22 Actual Respiratory Rate 22 Actual Respiratory Rate 27 Actual Respiratory Rate 27 Positive End Expiratory 5 Pressure Positive End Expiratory 5 Pressure Positive End Expiratory 0 Pressure Positive End Expiratory 0 Pressure Positive End Expiratory 5 Pressure Positive End Expiratory 5 Pressure Peak Inspiratory Airway 10 Pressure Peak Inspiratory Airway 10 Pressure Peak Inspiratory Airway 15 Pressure Peak Inspiratory Airway 14 Pressure Results - Laboratory Findings CBC and BMP: 06/14/17 06:34 06/14/17 07:59 ABG ABG pH 7.45 pH Units (7.32-7.45) 06/14/17 05:00 ABG pCO2 38 mmHg (35-45) 06/14/17 05:00 ABG pO2 89 mmHg (85-104) 06/14/17 05:00 ABG O2 Saturation 97 % (95-98) 06/14/17 05:00 PT/INR, D-dimer PT 13.9 Seconds (9.4-12.1) H 06/13/17 22:28 Abnormal lab findings: Abnormal lab results RBC 3.35 M/mcL (4.19-5.50) L 06/14/17 06:34 Hgb 10.4 g/dL (12.9-16.9) L D 06/14/17 06:34 Hct 32.0 % (37.5-50.1) L 06/14/17 06:34 RDW 17.0 % (11.5-14.5) H 06/14/17 06:34 PT 13.9 Seconds (9.4-12.1) H 06/13/17 22:28 ABG Total CO2 27.6 mEq/L (20-26) H 06/14/17 05:00 Potassium 2.4 mEq/L (3.5-4.5) L* 06/13/17 21:42 Chloride 114 mEq/L (98-109) H 06/13/17 21:42 Creatinine 1.78 mg/dL (0.72-1.25) H 06/13/17 21:42 Est GFR ( Amer) 45 (> 60) L 06/13/17 21:42 Est GFR (Non-Af Amer) 37 (> 60) L 06/13/17 21:42 Glucose 117 mg/dL (70-99) H 06/13/17 21:42 Calculated Osmolality 301 (280-300) H 06/13/17 21:42 Calcium 6.3 mg/dL (8.6-10.8) L 06/13/17 21:42 Direct Bilirubin 0.7 mg/dL (0.0-0.5) H 06/13/17 22:28 Alkaline Phosphatase 190 Units/L (38-126) H 06/13/17 22:28 Troponin I 0.04 ng/mL (0-0.03) H* 06/14/17 06:34 B-Natriuretic Peptide 1987 pg/mL (0-100) H 06/13/17 21:42 Albumin 3.0 g/dL (3.5-5.0) L D 06/13/17 22:28 Globulin 4.4 g/dL (2.4-3.5) H 06/13/17 22:28 Albumin/Globulin Ratio 0.7 (1.1-2.2) L 06/13/17 22:28 Urine Clarity Cloudy (Clear) A 06/13/17 22:09 Urine Protein 100 mg/dL (Neg-Trace) H 06/13/17 22:09 Urine Blood Moderate (Negative) H 06/13/17 22:09 Urine Bilirubin Small (Negative) H 06/13/17 22:09 Urine Microscopic WBC 5-15 per hpf (0-3) H 06/13/17 22:09 Ur Squamous Epith Cells Many per lpf (None-Few) H 06/13/17 22:09 Ur Culture Indicated? YES (NO) A 06/13/17 22:09 - Clinical Findings Intake & Output: Intake & Output 06/13/17 06/14/17 06/14/17 23:59 07:59 15:59 Intake Total 100 / 100.9 1445.1 / 1445.1 34 / 34 Output Total 350 / 350 Balance 100 / 100.9 1095.1 / 1095.1 34 / 34 Weight 69.4 kg Consult Discharge Plan - Plan Referrals: Rena Christianson, REFRIGERATOR ASSEMBLER [Primary Care Provider] - <Jagruti Sanchez - Last Filed: 06/14/17 15:42> Date of Encounter: 06/14/17 All Systems: A 10-system review of systems was performed and is negative for pertinent findings except as documented above in the HPI. Physical Examination Vital Signs: Vital Signs, Last 4 Hours Pulse Resp BP Pulse Ox 06/14/17 15:00 94 20 83/59 100 06/14/17 14:00 76 22 80/65 100 06/14/17 13:00 78 20 92/67 99 06/14/17 12:00 74 19 88/63 100 Ventilator Settings Ventilator Settings: Ventilator Settings, Last 8 Hours Ventilator Mode CPAP Ventilator Mode VC+ Ventilator Mode VC+ Ventilator Tidal Volume 450 Setting Ventilator Tidal Volume 450 Setting Ventilator Tidal Volume 450 Setting Ventilator Respiratory Rate 12 Setting Ventilator Respiratory Rate 12 Setting Actual Respiratory Rate 28 Actual Respiratory Rate 23 Actual Respiratory Rate 16 Positive End Expiratory 5 Pressure Positive End Expiratory 5 Pressure Positive End Expiratory 5 Pressure Results - Laboratory Findings CBC and BMP: 06/14/17 06:34 06/14/17 07:59 ABG ABG pH 7.45 pH Units (7.32-7.45) 06/14/17 05:00 ABG pCO2 38 mmHg (35-45) 06/14/17 05:00 ABG pO2 89 mmHg (85-104) 06/14/17 05:00 ABG O2 Saturation 97 % (95-98) 06/14/17 05:00 PT/INR, D-dimer PT 13.9 Seconds (9.4-12.1) H 06/13/17 22:28 Abnormal lab findings: Abnormal lab results RBC 3.35 M/mcL (4.19-5.50) L 06/14/17 06:34 Hgb 10.4 g/dL (12.9-16.9) L D 06/14/17 06:34 Hct 32.0 % (37.5-50.1) L 06/14/17 06:34 RDW 17.0 % (11.5-14.5) H 06/14/17 06:34 PT 13.9 Seconds (9.4-12.1) H 06/13/17 22:28 ABG Total CO2 27.6 mEq/L (20-26) H 06/14/17 05:00 BUN 35 mg/dL (8-26) H D 06/14/17 07:59 Creatinine 2.72 mg/dL (0.72-1.25) H D 06/14/17 07:59 Est GFR ( Amer) 28 (> 60) L 06/14/17 07:59 Est GFR (Non-Af Amer) 23 (> 60) L 06/14/17 07:59 POC Glucose 91 (58-89) H 06/14/17 11:44 Calcium 8.3 mg/dL (8.6-10.8) L D 06/14/17 07:59 Ferritin 464 ng/ml (22-275) H 06/14/17 07:59 Direct Bilirubin 0.7 mg/dL (0.0-0.5) H 06/13/17 22:28 Alkaline Phosphatase 190 Units/L (38-126) H 06/13/17 22:28 Troponin I 0.04 ng/mL (0-0.03) H* 06/14/17 06:34 B-Natriuretic Peptide 1987 pg/mL (0-100) H 06/13/17 21:42 Albumin 3.0 g/dL (3.5-5.0) L D 06/13/17 22:28 Globulin 4.4 g/dL (2.4-3.5) H 06/13/17 22:28 Albumin/Globulin Ratio 0.7 (1.1-2.2) L 06/13/17 22:28 Urine Clarity Cloudy (Clear) A 06/13/17 22:09 Urine Protein 100 mg/dL (Neg-Trace) H 06/13/17 22:09 Urine Blood Moderate (Negative) H 06/13/17 22:09 Urine Bilirubin Small (Negative) H 06/13/17 22:09 Urine Microscopic WBC 5-15 per hpf (0-3) H 06/13/17 22:09 Ur Squamous Epith Cells Many per lpf (None-Few) H 06/13/17 22:09 Ur Culture Indicated? YES (NO) A 06/13/17 22:09 - Clinical Findings Intake & Output: Intake & Output 06/13/17 06/14/17 06/14/17 23:59 07:59 15:59 Intake Total 100 / 100.9 1445.1 / 1445.1 35 / 35 Output Total 350 / 350 100 / 100 Balance 100 / 100.9 1095.1 / 1095.1 -65 / -65 Weight 69.4 kg - Attending Attestation I examined this patient and my medical decision-making was reviewed with the Resident Physician. I agree with the documented findings, disposition and treatment plan as described except to the extent set forth below. Patient seen and examined. Labs, radiology, chart personally reviewed. Agree with resident's history and physical, assessment, plan with following comments: FIREWORKS DISPLAY SPECIALIST: Patient follows commands, patient was on Versed and that was stopped.. Pulmonary: Patient with acute respiratory failure and acceptable oxygenation and ventilation. Increase PEEP to 5 and then spontaneous breathing trial was done and patient was extubated to BiPAP. I suspect patient with cardiomyopathy and pulmonary edema. Cardiovascular: Patient has significant cardiovascular disease and overall no major findings. GI: Nutrition per dietary and GI prophylaxis per routine Heme: DVT prophylaxis per routine. The patient had blood transfusion I suspect this could be just chronic anemia and responded appropriately after blood transfusion. ID: Continue antibiotics and plan to de-escalation Renal; mill hand plate mill has been consulted for hemodialysis. Endorcine: blood glucose is monitored Lines: all lines checked and no evidence of infections Skin: skin care to prevent pressure ulcers per nursing routine care I spent 35 min of Critical Care time with this patient. It involved decision making of high complexity to assess, manipulate, and support vital organ system failure and/or to prevent further life threatening deterioration of the patient' s condition. The time involved in the performance of separately reportable procedures was not counted toward critical care time.
[2017-06-14] MEDS ORDERED: Calcium Gluconate 1,000 MG in D5% in Water 100 ML IVPB PRN (09:33)
[2017-06-14] MEDS ORDERED: Magnesium Sulfate 2 GM in D5% in Water 100 ML IVPB PRN (09:33)
[2017-06-14 09:46] LABS: Calcium 8.3 mg/dL (8.6-10.8)
[2017-06-14] MEDS ORDERED: Lacri-Lube 3.5 GM TUBE BOTH EYES PRN (10:54)
--- NOTE | 2017-06-14 11:06 | Nephrology Consult Note ---
Date of Encounter: 06/14/17 Time of Encounter: 10:58 Assessment and Plan (1) ESRD (end stage renal disease) on dialysis Current Visit: Yes Status: Acute Plan for dialysis tomorrow Renal diet when diet advanced Avoid nephrotoxins (2) Respiratory distress Current Visit: Yes Status: Acute per pulmonary team (3) Severe anemia Current Visit: Yes Status: Acute Hgb up to 10.4 after transfusion Goal hgb 10-11 At the dialysis center Hgb was 11.4 on 06/06 History of Present Illness - Reason for Consult Consult date: 06/14/17 - Chief Complaint severe anemia, respiratory distress - History of Present Illness Mr. Amaro is a 81 year old male well known to our practice who receives dialysis at [facility] who presented to ER for shortness of breath. Patient has history of CHF and end-stage renal disease on hemodialysis. I actually seen patient at hemodialysis yesterday where he received a full treatment and tolerated it well, walking out of the center on his own. Daughter states they talked with patient on the phone for approximately an hour and patient seemed fine but c/o some shortness and breath and decided he would call squad to be taken in for evaluation. While on squad patient received several doses of Versed and was placed on BiPAP/CPAP. Patient had desaturation in emergency room and nonresponsive per ER doctor, he was intubated and placed on ventilation. Chest x-ray shows possible left pneumonia and hgb was 6.8 on admission. At the dialysis center patient's hgb was 11.4 on 06/06. On exam today patient is extubated, daughter at bedside. Past Med Surg Social Fam HX - Past Medical History Medical history: arthritis, cardiomyopathy, CHF, coronary artery disease, GERD, hyperlipidemia, hypertension, myocardial infarction, renal disease, other Psychiatric history: anxiety - Past Surgical History Surgical History: angioplasty/stent, cataract, knee replacement, orthopedic, other, pacemaker/AICD, other - Social History Smoking Status: Never smoker Smokeless Tobacco Status: No Alcohol use: none Drug use: none - Family History Mother Living Status: Hx Family Cardiac Disorders: Yes Hx Family Respiratory Disorders: No Hx Family Cancer: No Hx Family GI Disorders: No Hx Family Endocrine Disorder: No Hx Family Neuromuscular Disorders: No Hx Family Neurologic Disorders: No Hx Family HEENT Disorders: No Hx Family Autoimmune Disorders: No Father Hx Family Cardiac Disorders: Yes Medications and Allergies Allopurinol [Zyloprim] 200 mg PO DAILY 09/10/15 [History] Aspirin Enteric Coated [Aspirin EC] 81 mg PO DAILY 09/10/15 [History] Clopidogrel [Plavix] 75 mg PO QAM 09/10/15 [History] Finasteride [Proscar] 5 mg PO QPM 09/10/15 [History] Simvastatin [Zocor] 40 mg PO QPM tablet 11/11/15 [Rx] Escitalopram [Lexapro] 10 mg PO DAILY #30 tablet 01/22/17 [Rx] Tamsulosin [Flomax] 0.4 mg PO QAM capsule 01/22/17 [Rx] Isosorbide MONOnitrate (24 HR) [Imdur] 30 mg PO DAILY #30 tab.er.24h 02/01/17 [ Rx] Metoprolol XL (24 HR) Succ [Toprol Xl] 12.5 mg PO DAILY #30 tab.er.24h 02/01/17 [Rx] Ammonium Lactate [Anna-Hydrolac] 1 appl TP BID 06/13/17 [History] Fluticasone Propionate Nasal [Flonase] 100 mcg NS DAILY 06/13/17 [History] Furosemide [Lasix] 20 mg PO TID 06/13/17 [History] Oxygen 2 - 3 l NS AD 06/13/17 [History] Allergies No Known Allergies Allergy (Verified 01/30/17 18:33) Review of Systems All Systems: reviewed and no additional remarkable complaints except as stated Constitutional: no fever(s), no lethargy, no malaise Cardiovascular: dyspnea, no chest pain, no edema Gastrointestinal: no abdominal pain Neurological: no behavioral changes, no weakness Exam - Vital Signs Vital signs: Initial Vital Signs Pulse Ox 100 06/13/17 21:05 Vital Signs - Last 8 Hours Temp Pulse Resp BP Pulse Ox 06/14/17 10:52 22 103/71 97 06/14/17 10:50 103/71 97 06/14/17 10:00 85 28 95/71 97 06/14/17 09:00 75 23 96/69 97 06/14/17 08:00 75 18 81/62 97 06/14/17 07:15 70 22 77/60 98 06/14/17 07:00 98.0 F 06/14/17 06:00 68 18 82/63 96 06/14/17 05:18 17 78/57 96 06/14/17 05:00 70 20 78/58 98 06/14/17 04:38 97.4 F L 06/14/17 04:00 71 24 71/55 94 06/14/17 03:26 24 82/61 98 06/14/17 03:00 73 20 83/63 99 Intake and Output 06/13/17 06/14/17 06/14/17 23:59 07:59 15:59 Intake Total 100 / 100.9 1445.1 / 1445.1 35 / 35 Output Total 350 / 350 Balance 100 / 100.9 1095.1 / 1095.1 35 / 35 Intake: IV Fluids 100 / 100.9 795.1 / 795.1 35 / 35 0.9 % Sodium Chloride 250 250 / 250 ML As .ROUTE .STK-MED ONE Rx#:[id number] PRECEDEX 400 mcg In 100 39.1 / 39.1 ml @ 0.2 MCG/KG/HR 3.198 mls/hr IVC .Q24H [facility] Rx#: [id number] Versed 50 MG In 0.9 % 6 / 6 35 / 35 Sodium Chloride 90 ML @ 2 MG/HR 4 mls/hr IVC CONT ALLA Rx#:[id number] Levaquin Premix 750mg/150 150 / 150 mL 750 mg In 150 ml @ 100 mls/hr IVPB ONCE ONE Rx#:[id number] Zosyn 3.375 GM In 100 / 100 Dextrose 5% (Minibag+) 100 ML 100 ML @ 100 mls/ hr IVPB ONCE ONE Rx#: [id number] Potassium Chloride 10 mEq 100 / 100 /100mL 10 meq In 100 ml @ 100 mls/hr IVPB Q1H [facility] Rx#:[id number] Vancocin 1,000 MG In 250 / 250 Dextrose 5% 250 ML @ 167 mls/hr IVPB ONCE ONE Rx#: [id number] Oral 0 / 0 Blood Product 650 / 650 Rbcs Leuko Poor As-1 350 / 350 Unit [id number] Rbcs Leuko Poor As-1 300 / 300 Unit [id number] Output: Catheter 150 / 150 Gastric Drainage 200 / 200 Other: Stool Size Smear Stool Characteristics Mucoid Stool Color Brown Green Weight 69.4 kg Blood Glucose* 83 - General Appearance General appearance: frail EENT: ATNC Neck: supple Respiratory: course breath sounds Cardiology: no edema, normal S1, normal S2 - Dialysis Access Dialysis Vascular Access: Arteriovenous Fistula Gastrointestinal: no tenderness, no guarding Integumentary: warm and dry Additional Comments: sedated Musculoskeletal: no deformities Results - Lab Results 06/14/17 06:34 06/14/17 07:59 Most recent lab results ABG pH 7.45 pH Units (7.32-7.45) 06/14/17 05:00 ABG pCO2 38 mmHg (35-45) 06/14/17 05:00 ABG pO2 89 mmHg (85-104) 06/14/17 05:00 ABG HCO3 26.4 mEQ/L (21-27) 06/14/17 05:00 ABG O2 Saturation 97 % (95-98) 06/14/17 05:00 Calcium 8.3 mg/dL (8.6-10.8) L D 06/14/17 07:59 Phosphorus 4.2 mg/dL (2.3-4.7) 06/13/17 22:28 Magnesium 1.7 mg/dL (1.6-2.6) 06/14/17 09:55 Consult Discharge Plan - Plan Referrals: Rena Christianson, HOUSEKEEPER MANAGER [Primary Care Provider] -
[2017-06-14] MEDS: Budesonide/Formoterol 160/4.5 MDI IH SCH ×2 (11:25→19:51)
[2017-06-14] MEDS: Lacri-Lube 3.5 GM TUBE BOTH EYES SCH ×2 (11:46→18:10)
[2017-06-14] MEDS: Piperacillin/Tazobactam 3.375 GM in D5% in Water (Mini-Bag+) 100 ML IVPB SCH (11:56)
[2017-06-14] MEDS ORDERED: Insulin LISPRO 300 UNITS/3 ML VIAL SQ SCH (12:00)
[2017-06-14] MEDS: Dexmedetomidine HCl 400 MCG/100 ML MLS IVC SCH (19:26)
[2017-06-14] MEDS ORDERED: Chlorhexidine Rinse 15 ML MOUTHWASH MM SCH (21:00)
[2017-06-15] MEDS: Piperacillin/Tazobactam 3.375 GM in D5% in Water (Mini-Bag+) 100 ML IVPB SCH (00:14)
[2017-06-15] MEDS ORDERED: Vancomycin 1,000 MG in D5% in Water 250 ML IVPB ONE (01:00)
[2017-06-15] MEDS: Pantoprazole 40 MG VIAL IVPB SCH (06:17)
[2017-06-15 06:56] LABS: Basophils % 0.3 %; Eosinophils # 0.2 K/mcL (0.0-0.6); Hematocrit 32.9 % (37.5-50.1); Hemoglobin 10.8 g/dL (12.9-16.9); Immature Granulocytes % 0.3 % (0-4); Lymphocytes # 0.8 K/mcL (0.6-4.6); Lymphocytes % 11.3 %; Mean Corpuscular HGB Conc 32.8 g/dL (31.6-35.5); Mean Corpuscular Volume 94.5 fL (83.0-100.0); Mean Platelet Volume 10.4 fL (9.4-12.4); Monocytes # 0.9 K/mcL (0.0-1.3); Neutrophils # 5.3 K/mcL (1.6-8.9); Platelet Count 168 K/mcL (140-400); Red Blood Count 3.48 M/mcL (4.19-5.50); Red Cell Distribution Width 17.4 % (11.5-14.5); Segmented Neutrophils % 73.1 %
[2017-06-15 07:01] LABS: INR 1.4; Prothrombin Time 15.5 Seconds (9.4-12.1)
[2017-06-15 07:03] LABS: Activated Partial Thrombo Time 31.9 Seconds (26.0-36.0)
[2017-06-15 07:10] LABS: Calcium 9.2 mg/dL (8.6-10.8); Potassium 3.8 mEq/L (3.5-4.5)
--- NOTE | 2017-06-15 08:07 | Electrocardiograph Report ---
[address] [address] Test Date: 2017-06-13 Pat Name: Av Amaro Department: 105 Room: 09 Gender: M Acid Tender: : 1935 Requested By: Evangelista López Order Number: [id number] Reading MD: Reji Morris MD Measurements Intervals [place] Rate: 68 P: -57 NH: 212 QRS: -78 QRSD: 184 T: 101 QT: 542 QTc: 560 Interpretive Statements ELECTRONIC ATRIAL PACEMAKER ELECTRONIC VENTRICULAR PACEMAKER MULTIFOCAL PVC Electronically Signed On 06-15-2017 8:05:42 EDT by Reji Morris MD
[2017-06-15] MEDS: Budesonide/Formoterol 160/4.5 MDI IH SCH ×2 (09:18→20:19)
--- NOTE | 2017-06-15 10:45 | Pulmonology Progress Note ---
<Tanmay Young - Last Filed: 06/15/17 13:04> Date of Encounter: 06/15/17 Time of Encounter: 10:41 Assessment and Plan (1) Respiratory distress Current Visit: Yes Status: Acute Patient was extubated yesterday morning and is currently on nasal cannula and tolerating this well. Patient will be transferred out of the ICU to a telemetry bed. (2) Pneumonia Current Visit: Yes Status: Acute Chest x-ray showed a possible pneumonia. Vancomycin and Zosyn have been discontinued at this time. We have switched his levofloxacin to oral. We will treat his pneumonia with 500 mg of levofloxacin every 48 hours. Qualifiers: Pneumonia type: due to unspecified organism Laterality: left Lung location: lower lobe of lung Qualified Code(s): J18.1 - Lobar pneumonia, unspecified organism (3) ESRD (end stage renal disease) on dialysis Current Visit: Yes Status: Acute Patient has a history of end-stage renal disease requiring dialysis. Patient's last dialysis was on Tuesday. Nephrology has been consult at on this patient for further management. (4) Hypokalemia Current Visit: Yes Status: Acute Patient had hypokalemia on admission. The patient had his potassium replaced. Current potassium is 3.8. Patient has been placed on electrolyte protocol. Nephrology has been consulted. We will continue to follow this patient's potassium levels. (5) Severe anemia Current Visit: Yes Status: Acute Patient initially had a hemoglobin of 6.8. Patient was transfused 2 units of blood yesterday. His repeat hemoglobin yesterday was 10.4. This morning his hemoglobin was 10.8. We will continue to monitor the patient's hemoglobin. A CT of the abdomen and pelvis was ordered yesterday and was negative for a bleed. (6) Abdominal aortic aneurysm (AAA) Current Visit: Yes Status: Acute On the CT scan of the abdomen and pelvis the patient was found to have an abdominal aortic aneurysm measuring 3.1 cm. The current recommendation is to follow up for an aneurysm this size in 3 years. We recommended that the patient follow-up as an outpatient and have this reevaluated in 3 years. Qualifiers: Presence of rupture: without rupture Qualified Code(s): I71.4 - Abdominal aortic aneurysm, without rupture (7) Elevated troponin Current Visit: No Status: Acute Patient had an elevated troponin 0.04. Troponin was repeated and was 0.04 again. Patient has chronically elevated troponin levels. When looking back in his medical record it appears that this is baseline for him. Based on medical record it looks like his baseline is around 0.05. (8) DVT prophylaxis Current Visit: No Status: Acute Due to the patient having a low hemoglobin and having to be transfused we will avoid blood thinners at this time. SCDs have been ordered for the patient Subjective Principal diagnosis: Pneumonia Interval history: This morning the patient stated that he was doing well. Says that he Objective PUL Vital signs: Last Vital Signs Temp 96.6 F L 06/15/17 08:00 Pulse 87 06/15/17 10:00 Resp 20 06/15/17 10:00 BP 104/68 06/15/17 10:00 Pulse Ox 98 06/15/17 10:00 Results - Laboratory Findings CBC and BMP: 06/15/17 06:44 06/15/17 06:44 ABG ABG pH 7.45 pH Units (7.32-7.45) 06/14/17 05:00 ABG pCO2 38 mmHg (35-45) 06/14/17 05:00 ABG pO2 89 mmHg (85-104) 06/14/17 05:00 ABG O2 Saturation 97 % (95-98) 06/14/17 05:00 PT/INR, D-dimer PT 15.5 Seconds (9.4-12.1) H 06/15/17 06:44 Abnormal lab findings: Abnormal lab results RBC 3.48 M/mcL (4.19-5.50) L 06/15/17 06:44 Hgb 10.8 g/dL (12.9-16.9) L 06/15/17 06:44 Hct 32.9 % (37.5-50.1) L 06/15/17 06:44 RDW 17.4 % (11.5-14.5) H 06/15/17 06:44 PT 15.5 Seconds (9.4-12.1) H 06/15/17 06:44 ABG Total CO2 27.6 mEq/L (20-26) H 06/14/17 05:00 Sodium 135 mEq/L (136-145) L 06/15/17 06:44 BUN 39 mg/dL (8-26) H 06/15/17 06:44 Creatinine 3.18 mg/dL (0.72-1.25) H 06/15/17 06:44 Est GFR ( Amer) 23 (> 60) L 06/15/17 06:44 Est GFR (Non-Af Amer) 19 (> 60) L 06/15/17 06:44 Ferritin 464 ng/ml (22-275) H 06/14/17 07:59 Direct Bilirubin 0.7 mg/dL (0.0-0.5) H 06/13/17 22:28 Alkaline Phosphatase 190 Units/L (38-126) H 06/13/17 22:28 Troponin I 0.04 ng/mL (0-0.03) H* 06/14/17 06:34 B-Natriuretic Peptide 1987 pg/mL (0-100) H 06/13/17 21:42 Albumin 3.0 g/dL (3.5-5.0) L D 06/13/17 22:28 Globulin 4.4 g/dL (2.4-3.5) H 06/13/17 22:28 Albumin/Globulin Ratio 0.7 (1.1-2.2) L 06/13/17 22:28 Urine Clarity Cloudy (Clear) A 06/13/17 22:09 Urine Protein 100 mg/dL (Neg-Trace) H 06/13/17 22:09 Urine Blood Moderate (Negative) H 06/13/17 22:09 Urine Bilirubin Small (Negative) H 06/13/17 22:09 Urine Microscopic WBC 5-15 per hpf (0-3) H 06/13/17 22:09 Ur Squamous Epith Cells Many per lpf (None-Few) H 06/13/17 22:09 Ur Culture Indicated? YES (NO) A 06/13/17 22:09 - Microbiology Findings Microbiology Findings: Microbiology, Last 48 Hours 06/14/17 00:35 Blood Culture - Preliminary Peripheral Venipuncture No growth. 06/14/17 00:44 Blood Culture - Preliminary Peripheral Venipuncture No growth. - Clinical Findings Intake & Output: Intake & Output 06/14/17 06/15/17 06/15/17 23:59 07:59 15:59 Intake Total 820 / 820 350 / 350 Output Total 250 / 250 200 / 200 Balance 570 / 570 150 / 150 Weight 71.2 kg - VTE Documentation of Mechanical Device: Intermittent pneumatic compression device Consult Discharge Plan - Plan Referrals: Rena Christianson, GRAB HOOKER [Primary Care Provider] - <DoraalexMuna boyceconnor Hyatt - Last Filed: 06/15/17 13:14> Date of Encounter: 06/15/17 Objective PUL Vital signs: Last Vital Signs Temp 96.6 F L 06/15/17 08:00 Pulse 87 06/15/17 10:00 Resp 20 06/15/17 10:00 BP 104/68 06/15/17 10:00 Pulse Ox 98 06/15/17 10:00 Results - Laboratory Findings CBC and BMP: 06/15/17 06:44 06/15/17 06:44 ABG ABG pH 7.45 pH Units (7.32-7.45) 06/14/17 05:00 ABG pCO2 38 mmHg (35-45) 06/14/17 05:00 ABG pO2 89 mmHg (85-104) 06/14/17 05:00 ABG O2 Saturation 97 % (95-98) 06/14/17 05:00 PT/INR, D-dimer PT 15.5 Seconds (9.4-12.1) H 06/15/17 06:44 Abnormal lab findings: Abnormal lab results RBC 3.48 M/mcL (4.19-5.50) L 06/15/17 06:44 Hgb 10.8 g/dL (12.9-16.9) L 06/15/17 06:44 Hct 32.9 % (37.5-50.1) L 06/15/17 06:44 RDW 17.4 % (11.5-14.5) H 06/15/17 06:44 PT 15.5 Seconds (9.4-12.1) H 06/15/17 06:44 ABG Total CO2 27.6 mEq/L (20-26) H 06/14/17 05:00 Sodium 135 mEq/L (136-145) L 06/15/17 06:44 BUN 39 mg/dL (8-26) H 06/15/17 06:44 Creatinine 3.18 mg/dL (0.72-1.25) H 06/15/17 06:44 Est GFR ( Amer) 23 (> 60) L 06/15/17 06:44 Est GFR (Non-Af Amer) 19 (> 60) L 06/15/17 06:44 Ferritin 464 ng/ml (22-275) H 06/14/17 07:59 Direct Bilirubin 0.7 mg/dL (0.0-0.5) H 06/13/17 22:28 Alkaline Phosphatase 190 Units/L (38-126) H 06/13/17 22:28 Troponin I 0.04 ng/mL (0-0.03) H* 06/14/17 06:34 B-Natriuretic Peptide 1987 pg/mL (0-100) H 06/13/17 21:42 Albumin 3.0 g/dL (3.5-5.0) L D 06/13/17 22:28 Globulin 4.4 g/dL (2.4-3.5) H 06/13/17 22:28 Albumin/Globulin Ratio 0.7 (1.1-2.2) L 06/13/17 22:28 Urine Clarity Cloudy (Clear) A 06/13/17 22:09 Urine Protein 100 mg/dL (Neg-Trace) H 06/13/17 22:09 Urine Blood Moderate (Negative) H 06/13/17 22:09 Urine Bilirubin Small (Negative) H 06/13/17 22:09 Urine Microscopic WBC 5-15 per hpf (0-3) H 06/13/17 22:09 Ur Squamous Epith Cells Many per lpf (None-Few) H 06/13/17 22:09 Ur Culture Indicated? YES (NO) A 06/13/17 22:09 - Microbiology Findings Microbiology Findings: Microbiology, Last 48 Hours 06/14/17 00:35 Blood Culture - Preliminary Peripheral Venipuncture No growth. 06/14/17 00:44 Blood Culture - Preliminary Peripheral Venipuncture No growth. - Clinical Findings Intake & Output: Intake & Output 06/14/17 06/15/17 06/15/17 23:59 07:59 15:59 Intake Total 820 / 820 350 / 350 Output Total 250 / 250 200 / 200 Balance 570 / 570 150 / 150 Weight 71.2 kg - Attending Attestation I examined this patient and my medical decision-making was reviewed with the Resident Physician. I agree with the documented findings, disposition and treatment plan as described except to the extent set forth below. Patient seen and examined. Labs, radiology, chart personally reviewed. Agree with resident's history and physical, assessment, plan with following comments: SETTER OUT: Patient follows commands, Pulmonary: Acceptable oxygenation and ventilation. Status post extubation and patient is doing fine. Cardiovascular: Cardiomyopathy and to resume all medications. GI: Nutrition per dietary and GI prophylaxis per routine Heme: DVT prophylaxis per routine ID: Continue antibiotics and plan to de-escalation Renal; nephrology follow-up. Endorcine: blood glucose is monitored Lines: all lines checked and no evidence of infections Skin: skin care to prevent pressure ulcers per nursing routine care Overall patient is improving and stable to be transferred out of ICU.
[2017-06-15] MEDS ORDERED: 0.9 % Sodium Chloride 250 ML IVC PRN (10:52)
[2017-06-15] MEDS ORDERED: Magnesium Sulfate 2 GM in D5% in Water 100 ML IVPB PRN (10:59)
[2017-06-15] MEDS ORDERED: Ipratropium/Albuterol Neb 3 ML IH PRN (10:59)
[2017-06-15] MEDS ORDERED: Acetaminophen 650 MG RECTAL SUPP RC PRN (10:59)
[2017-06-15] MEDS ORDERED: Naloxone 0.4 MG/ML INJ IVP PRN (10:59)
[2017-06-15] MEDS ORDERED: Calcium Gluconate 1,000 MG in D5% in Water 100 ML IVPB PRN (10:59)
[2017-06-15] MEDS ORDERED: 0.9 % Sodium Chloride 1,000 ML PRIME SCH (11:00)
--- NOTE | 2017-06-15 12:52 | Nephrology Progress Note ---
Date of Encounter: 06/15/17 Time of Encounter: 11:00 - Assessment and Plan (1) ESRD (end stage renal disease) on dialysis Current Visit: Yes Status: Acute HD planned today with UF goal of 1-2 kg as tolerated (2) Acute and chronic respiratory failure with hypoxia Current Visit: No Status: Resolved Subjective Principal diagnosis: Pneumonia Interval history: pt seen and examined now with just nasal cannula. No SOB. Eager to go home soon. Objective - Vital Signs Vital signs: Vital Signs Temp Pulse Resp BP Pulse Ox 06/15/17 11:47 96.5 F L 06/15/17 11:03 86 20 101/72 99 06/15/17 10:00 87 20 104/68 98 06/15/17 09:19 20 98 06/15/17 09:00 86 20 97/74 100 06/15/17 08:20 84 20 104/77 100 06/15/17 08:00 96.6 F L 06/15/17 07:00 90 20 106/74 97 06/15/17 06:00 78 21 80/58 99 06/15/17 05:00 85 27 86/60 98 06/15/17 04:00 81 13 108/72 99 06/15/17 03:00 97.9 F 84 18 102/75 99 06/15/17 02:00 86 30 94/72 96 06/15/17 01:00 101 27 97/74 99 06/15/17 00:00 101 30 96/70 100 06/14/17 23:22 96.7 F L 06/14/17 23:00 105 19 105/85 93 06/14/17 22:00 92 11 95/77 95 06/14/17 21:00 98 19 109/73 98 06/14/17 20:00 97.9 F 102 32 94/73 98 06/14/17 19:53 18 95 06/14/17 19:00 97.9 F 90 18 96/67 91 06/14/17 18:00 85 20 95/77 99 06/14/17 17:00 96 22 104/80 98 06/14/17 16:00 97.7 F 77 20 92/69 96 06/14/17 15:00 94 20 83/59 100 06/14/17 14:00 76 22 80/65 100 06/14/17 13:00 78 20 92/67 99 Intake and Output 06/14/17 06/15/17 06/15/17 23:59 07:59 15:59 Intake Total 820 / 820 350 / 350 480 / 480 Output Total 250 / 250 200 / 200 50 / 50 Balance 570 / 570 150 / 150 430 / 430 Intake: IV Fluids 100 / 100 350 / 350 Zosyn 3.375 GM In 100 / 100 100 / 100 Dextrose 5% (Minibag+) 100 ML 100 ML @ 25 mls/hr IVPB Q12H [facility] Rx#: [id number] Vancocin 1,000 MG In 250 / 250 Dextrose 5% 250 ML @ 166. 667 mls/hr IVPB ONCE ONE Rx#:[id number] Oral 720 / 720 480 / 480 Output: Urine 250 / 250 200 / 200 50 / 50 Other: Meal Dinner Breakfast Percent of Meal Consumed 100% 100% Stool Size Moderate Stool Consistency loose Stool Characteristics Pasty Stool Color Brown Weight 71.2 kg Blood Glucose* 157 106 88 Patient Weight 06/15/17 23:59 Weight 71.2 kg - Lab 06/15/17 06:44 06/15/17 06:44 Most recent lab results ABG pH 7.45 pH Units (7.32-7.45) 06/14/17 05:00 ABG pCO2 38 mmHg (35-45) 06/14/17 05:00 ABG pO2 89 mmHg (85-104) 06/14/17 05:00 ABG HCO3 26.4 mEQ/L (21-27) 06/14/17 05:00 ABG O2 Saturation 97 % (95-98) 06/14/17 05:00 Calcium 9.2 mg/dL (8.6-10.8) 06/15/17 06:44 Phosphorus 4.2 mg/dL (2.3-4.7) 06/13/17 22:28 Magnesium 1.6 mg/dL (1.6-2.6) 06/15/17 06:44 - VTE Documentation of Mechanical Device: Intermittent pneumatic compression device Consult Discharge Plan - Plan Referrals: Rena Christianson, INFORMATICS MANAGER [Primary Care Provider] -
[2017-06-15 14:55] LABS: Hematocrit 33.4 % (37.5-50.1); Hemoglobin 11.2 g/dL (12.9-16.9); Mean Corpuscular HGB Conc 33.5 g/dL (31.6-35.5); Mean Corpuscular Hemoglobin 31.4 pg (28.0-33.3); Mean Corpuscular Volume 93.6 fL (83.0-100.0); Platelet Count 190 K/mcL (140-400); Red Blood Count 3.57 M/mcL (4.19-5.50); Red Cell Distribution Width 17.3 % (11.5-14.5)
[2017-06-15 15:25] LABS: Hepatitis B Surface Antibody 0.28 mIU/mL; Hepatitis B Surface Antigen Nonreactive (Nonreactive)
[2017-06-15] MEDS ORDERED: 0.9 % Sodium Chloride 1,000 ML ONE (16:46)
[2017-06-15] MEDS ORDERED: levoFLOXacin 500 MG TABLET PO SCH (18:00)
[2017-06-16] MEDS ORDERED: Levofloxacin 500 MG/100 ML 500 MG/100 ML BAG IVPB SCH (01:00)
[2017-06-16] MEDS ORDERED: Pantoprazole 40 MG VIAL IVPB SCH (06:30)
[2017-06-16 08:00] LABS: Basophils % 0.3 %; Eosinophils # 0.3 K/mcL (0.0-0.6); Eosinophils % 3.3 %; Hematocrit 34.9 % (37.5-50.1); Hemoglobin 11.2 g/dL (12.9-16.9); Immature Granulocytes % 0.5 % (0-4); Lymphocytes % 12.9 %; Mean Corpuscular HGB Conc 32.1 g/dL (31.6-35.5); Mean Corpuscular Hemoglobin 30.4 pg (28.0-33.3); Mean Corpuscular Volume 94.8 fL (83.0-100.0); Mean Platelet Volume 10.3 fL (9.4-12.4); Monocytes # 1.2 K/mcL (0.0-1.3); Monocytes % 14.7 %; Neutrophils # 5.4 K/mcL (1.6-8.9); Platelet Count 184 K/mcL (140-400); Red Blood Count 3.68 M/mcL (4.19-5.50); Red Cell Distribution Width 17.3 % (11.5-14.5); Segmented Neutrophils % 68.3 %
[2017-06-16] MEDS: Budesonide/Formoterol 160/4.5 MDI IH SCH ×2 (08:01→22:37)
[2017-06-16 08:11] LABS: Calcium 9.4 mg/dL (8.6-10.8); Magnesium 2.1 mg/dL (1.6-2.6); Potassium 4.3 mEq/L (3.5-4.5)
[2017-06-16] MEDS ORDERED: Acetaminophen 325 MG TABLET PO PRN (10:12)
--- NOTE | 2017-06-16 11:25 | Internal Med Progress Note ---
<Fredo Francisco - Last Filed: 06/16/17 14:36> Date of Encounter: 06/16/17 Time of Encounter: 11:23 - Assessment and plan (1) ESRD (end stage renal disease) on dialysis Current Visit: Yes Status: Acute Assessment and plan: ESRD on HD. Last HD was on 06/13. - Nephrology following - HD today with UF goal of 1-2 kg as tolerated (2) Pneumonia Current Visit: Yes Status: Acute Assessment and plan: CXR showed a possible pneumonia. Was started on Vanc and Zosyn in ED, and switched to Oral levofloxcin. - ct Levofloxacin 500 mg q48hrs Qualifiers: Pneumonia type: due to unspecified organism Laterality: left Lung location: lower lobe of lung Qualified Code(s): J18.1 - Lobar pneumonia, unspecified organism (3) Respiratory distress Current Visit: Yes Status: Acute Assessment and plan: Patient was extubated on 06/14 and left the ICU on 06/15. - SpO2 98% on 2L NC - closely monitor SpO2 - CT chest pending, concerns for mass on CXR (4) Severe anemia Current Visit: Yes Status: Acute Assessment and plan: On admission hgb 6.8, was transfused with 2 unit of prbc. hgb today 11.2. Ct abd/pelvis was negative for a bleed - will continue to monitor hgb (5) Elevated troponin Current Visit: No Status: Acute Assessment and plan: On admission trop 0.04, 0.04. Elevated trops is chronic, baseline around 0.05 (6) Abdominal aortic aneurysm (AAA) Current Visit: Yes Status: Acute Assessment and plan: CT abd/pelvis found AAA 3.1 cm. - F/U with aneurysm in 3 years Qualifiers: Presence of rupture: without rupture Qualified Code(s): I71.4 - Abdominal aortic aneurysm, without rupture - Subjective Interval history: Mr. Amaro is a 81 year old M who is on day 3 of admit after desat and non- responsive in the ED w/ hx chf, ESRD on HD. Patient has a 3 week history of SOB , Product Cough and these symptoms have been progressing. Today he state he's feeling much better denies n/v/f/c or recent weightloss - Constitutional Vitals: Temp Pulse Resp BP Pulse Ox 98.3 F 79 13 100/65 98 06/16/17 11:14 06/16/17 11:14 06/16/17 11:14 06/16/17 11:14 06/16/17 11:14 General appearance: Present: A&O X 3, pleasant, no acute distress - Head Head exam: Present: atraumatic, normocephalic - Respiratory Respiratory exam: Present: decreased breath sounds, wheezes. Absent: chest wall tenderness - Cardiovascular Cardiovascular exam: Present: RRR, +S1, +S2. Absent: diastolic murmur, gallop, rubs, systolic murmur - GI/Abdominal GI/Abdominal exam: Present: normal bowel sounds, soft, no peritoneal signs. Absent: distended, tenderness Internal Medicine: Result - Labs CBC & Chem 7: 06/16/17 07:51 06/16/17 07:51 Labs: Short CBC 06/15/17 06/16/17 Range/Units 14:15 07:51 WBC 8.2 7.9 (4.3-11.1) K/mcL Hgb 11.2 L 11.2 L (12.9-16.9) g/dL Hct 33.4 L 34.9 L (37.5-50.1) % Plt Count 190 184 (140-400) K/mcL Neutrophils # 5.4 (1.6-8.9) K/mcL BMP 06/16/17 07:51 Sodium 136 Potassium 4.3 Chloride 102 Carbon Dioxide 26 BUN 25 D Creatinine 2.85 H Glucose 92 Calcium 9.4 - ABG Interpretation ABG results: ABG ABG pH 7.45 pH Units (7.32-7.45) 06/14/17 05:00 ABG pCO2 38 mmHg (35-45) 06/14/17 05:00 ABG pO2 89 mmHg (85-104) 06/14/17 05:00 ABG O2 Saturation 97 % (95-98) 06/14/17 05:00 PT/INR, D-dimer PT 15.5 Seconds (9.4-12.1) H 06/15/17 06:44 - VTE Documentation of Mechanical Device: Intermittent pneumatic compression device Consult Discharge Plan - Plan Referrals: Rena Christianson, CONNIE CLEANER [Primary Care Provider] - (WEB REQUEST SENT ON 06/16/17) <Keenan Blackwell P - Last Filed: 06/16/17 18:21> Date of Encounter: 06/16/17 - Constitutional Vitals: Temp Pulse Resp BP Pulse Ox 97.5 F L 76 13 98/71 98 06/16/17 16:00 06/16/17 16:00 06/16/17 16:00 06/16/17 16:00 06/16/17 16:00 Internal Medicine: Result - Labs CBC & Chem 7: 06/16/17 07:51 06/16/17 07:51 Labs: Short CBC 06/16/17 Range/Units 07:51 WBC 7.9 (4.3-11.1) K/mcL Hgb 11.2 L (12.9-16.9) g/dL Hct 34.9 L (37.5-50.1) % Plt Count 184 (140-400) K/mcL Neutrophils # 5.4 (1.6-8.9) K/mcL BMP 06/16/17 07:51 Sodium 136 Potassium 4.3 Chloride 102 Carbon Dioxide 26 BUN 25 D Creatinine 2.85 H Glucose 92 Calcium 9.4 - ABG Interpretation ABG results: ABG ABG pH 7.45 pH Units (7.32-7.45) 06/14/17 05:00 ABG pCO2 38 mmHg (35-45) 06/14/17 05:00 ABG pO2 89 mmHg (85-104) 06/14/17 05:00 ABG O2 Saturation 97 % (95-98) 06/14/17 05:00 PT/INR, D-dimer PT 15.5 Seconds (9.4-12.1) H 06/15/17 06:44 - Impressions Impressions Chest CT 06/16/17 11:30 IMPRESSION: 1. Cardiomegaly with small bilateral pleural effusions and pulmonary edema, not appreciably changed from the 01/17/2017 exam. 2. There are enlarged mediastinal lymph nodes, presumably reactive, unchanged. 3. Atherosclerotic disease. 4. No lung mass is identified. D/ / 06/16/2017 13:14:49 Porfirio Calvo MD / bcarter Interpreting Provider: Porfirio Calvo MD - Attending Attestation I examined this patient and my medical decision-making was reviewed with the Resident Physician. I agree with the documented findings, disposition and treatment plan as described except to the extent set forth below.
[2017-06-16] MEDS ORDERED: levoFLOXacin 500 MG TABLET PO SCH (18:00)
[2017-06-16] MEDS ORDERED: Cefdinir 300 MG CAPSULE PO SCH (21:00)
[2017-06-16] MEDS: Ammonium Lactate 30 APPL/225 GM BOTTLE TP SCH (21:49)
[2017-06-17 06:20] LABS: Basophils % 0.3 %; Eosinophils # 0.3 K/mcL (0.0-0.6); Eosinophils % 4.9 %; Hematocrit 36.5 % (37.5-50.1); Hemoglobin 11.6 g/dL (12.9-16.9); Immature Granulocytes % 0.7 % (0-4); Lymphocytes # 0.8 K/mcL (0.6-4.6); Lymphocytes % 12.1 %; Mean Corpuscular HGB Conc 31.8 g/dL (31.6-35.5); Mean Corpuscular Hemoglobin 31.1 pg (28.0-33.3); Mean Corpuscular Volume 97.9 fL (83.0-100.0); Mean Platelet Volume 10.7 fL (9.4-12.4); Monocytes % 14.4 %; Neutrophils # 4.7 K/mcL (1.6-8.9); Platelet Count 171 K/mcL (140-400); Red Blood Count 3.73 M/mcL (4.19-5.50); Red Cell Distribution Width 17.4 % (11.5-14.5); Segmented Neutrophils % 67.6 %
[2017-06-17 06:26] LABS: Calcium 9.7 mg/dL (8.6-10.8)
[2017-06-17] MEDS: Ammonium Lactate 30 APPL/225 GM BOTTLE TP SCH (08:04)
[2017-06-17] MEDS: Budesonide/Formoterol 160/4.5 MDI IH SCH (08:07)
[2017-06-17] MEDS ORDERED: 0.9 % Sodium Chloride 250 ML IVC PRN (08:15)
[2017-06-17] MEDS ORDERED: Metoprolol XL (24 HR) Succ 25 MG TAB.ER.24H PO SCH (09:00)
[2017-06-17] MEDS ORDERED: Finasteride 5 MG TABLET PO SCH (09:00)
[2017-06-17] MEDS ORDERED: Fluticasone Propionate Nasal 50 MCG/SPRAY BOTTLE NS SCH (09:00)
[2017-06-17] MEDS ORDERED: Aspirin 81 MG TAB.CHEW PO SCH (09:00)
[2017-06-17] MEDS ORDERED: Isosorbide MONOnitrate (24 HR) 30 MG TAB.ER.24H PO SCH (09:00)
--- NOTE | 2017-06-17 10:17 | Discharge Summary ---
<Fredo Francisco - Last Filed: 06/17/17 14:30> Date of Encounter: 06/17/17 Time of Encounter: 10:11 - Discharge Diagnosis (1) ESRD (end stage renal disease) on dialysis Priority: Secondary Status: Acute (2) Pneumonia Priority: Secondary Status: Acute Qualifiers: Pneumonia type: due to unspecified organism Laterality: left Lung location: lower lobe of lung Qualified Code(s): J18.1 - Lobar pneumonia, unspecified organism (3) Respiratory distress Priority: Primary Status: Acute (4) Severe anemia Priority: Secondary Status: Acute (5) Elevated troponin Priority: Secondary Status: Acute (6) Abdominal aortic aneurysm (AAA) Priority: Secondary Status: Acute Qualifiers: Presence of rupture: without rupture Qualified Code(s): I71.4 - Abdominal aortic aneurysm, without rupture - Discharge Medications Prescriptions: Cefdinir [Omnicef] 300 mg PO BID #18 Cefdinir [Omnicef] 300 mg PO BID #18 capsule levoFLOXacin [Levaquin] 500 mg PO Q48H #4 tab Home Medications: Allopurinol [Zyloprim] 200 mg PO DAILY 09/10/15 [History] Aspirin Enteric Coated [Aspirin EC] 81 mg PO DAILY 09/10/15 [History] Clopidogrel [Plavix] 75 mg PO QAM 09/10/15 [History] Finasteride [Proscar] 5 mg PO QPM 09/10/15 [History] Simvastatin [Zocor] 40 mg PO QPM tablet 11/11/15 [Rx] Escitalopram [Lexapro] 10 mg PO DAILY #30 tablet 01/22/17 [Rx] Tamsulosin [Flomax] 0.4 mg PO QAM capsule 01/22/17 [Rx] Isosorbide MONOnitrate (24 HR) [Imdur] 30 mg PO DAILY #30 tab.er.24h 02/01/17 [ Rx] Metoprolol XL (24 HR) Succ [Toprol Xl] 12.5 mg PO DAILY #30 tab.er.24h 02/01/17 [Rx] Ammonium Lactate [Anna-Hydrolac] 1 appl TP BID 06/13/17 [History] Fluticasone Propionate Nasal [Flonase] 100 mcg NS DAILY 06/13/17 [History] Furosemide [Lasix] 20 mg PO TID 06/13/17 [History] Oxygen 2 - 3 l NS AD 06/13/17 [History] Cefdinir [Omnicef] 300 mg PO BID #18 06/17/17 [Rx] Cefdinir [Omnicef] 300 mg PO BID #18 capsule 06/17/17 [Rx] levoFLOXacin [Levaquin] 500 mg PO Q48H #4 tab 06/17/17 [Rx] Allergies/Adverse Reactions: 3 Allergy/AdvReac Type Severity Reaction Status Date / Time No Known Allergies Allergy Verified 01/30/17 18:33 Procedures/tests Complete & Pending: Procedures Performed prior 72 hours Category Date Time Status CT chest w/o contrast [CT chest wo con] [CT] Routine Cat Scan 06/16/17 11:30 Completed Date of admission: 06/13/17 22:49 Primary care physician: Rena Christianson CNP Consults: 06/14/17 00:25 Consult to Critical Care [CONS] Routine Consulting Provider: [facility] [place] Reason for Consult: Pt has pneumonia. Intubated and on ventilation. Call Completed: No 06/15/17 11:00 Consult to Dialysis [CONS] ONCE 06/17/17 08:15 Consult to Dialysis [CONS] ONCE 06/18/17 08:15 Consult to Dialysis [CONS] ONCE - Patient Status Disposition: Home, Self-Care Condition: Good Functional capacity at discharge: independent ambulation Overall status at discharge: patient is progressing back to baseline - Discharge Instructions Instructions: Anemia (GEN) Follow Up With: Jagruti Sanchez MD [Partnered Physician] - Rena Christianson CNP [Primary Care Provider] - 06/23/17 2:00 pm (WEB REQUEST SENT ON 06/16/17) Hospital course: Mr. Amaro is a 81 year old male who was brought to the hospital due to SOB during dialysis with Hx: 3 week progressive SOB and weakness, ESRD on HD, CHF. Patient has desaturation in emergency room and nonresponsive per ER doctor, he was intubated and placed on ventilation. Extubated 06/14. Chest x-ray shows left pneumonia and was started on vancomycin, zosyn, and levaquin. Blood Cx were negative. Per Pulm, patient was only continued on levaquin. Patient was admitted to ICU for further treatment. Pulm and Neph were consulted. On CT scan of the abdomen and pelvis the patient was found to have an abdominal aortic aneurysm measuring 3.1 cm. The current recommendation is to follow-up for an aneurysm of this size in 3 years. Recommend that the patient follow up as outpatient and have this reevaluated in 3 years. Patient received 2 units of Blood due to hgb 6.8, then improved to 10.4 the next day. K+ was 2.4 on admission, K+ was administered, and returned to 4.0. On 06/15 HD with UF goal of 1-2 kg removed 2.6L of fluid and weight post-hd 70.5kg. Planned HD on day of discharge. - Time Spent with Patient Total time spent providing and/or coordinating discharge services: - Constitutional Vitals: Temp Pulse Resp BP Pulse Ox 97.6 F 78 16 92/61 95 06/17/17 07:09 06/17/17 07:09 06/17/17 08:07 06/17/17 07:09 06/17/17 08:07 General appearance: Present: A&O X 3, pleasant, no acute distress - Respiratory Respiratory exam: Present: CTAB. Absent: accessory muscle use, rales, rhonchi, wheezes - Cardiovascular Cardiovascular exam: Present: RRR, +S1, +S2. Absent: diastolic murmur, gallop, rubs, systolic murmur - GI/Abdominal GI/Abdominal exam: Present: normal bowel sounds, soft, no peritoneal signs. Absent: distended, tenderness - Neurological Exam Neurological exam: Present: alert, oriented X3 - Psychiatric Psychiatric exam: Present: normal affect, normal mood - VTE Documentation of Mechanical Device: Intermittent pneumatic compression device <Keenan Blackwell - Last Filed: 06/17/17 20:26> Date of Encounter: 06/17/17 Procedures/tests Complete & Pending: Procedures Performed prior 72 hours Category Date Time Status CT chest w/o contrast [CT chest wo con] [CT] Routine Cat Scan 06/16/17 11:30 Completed Date of admission: 06/13/17 22:49 Primary care physician: Rena Christianson CNP Consults: 06/14/17 00:25 Consult to Critical Care [CONS] Routine Consulting Provider: [facility] [place] Reason for Consult: Pt has pneumonia. Intubated and on ventilation. Call Completed: No 06/15/17 11:00 Consult to Dialysis [CONS] ONCE 06/17/17 08:15 Consult to Dialysis [CONS] ONCE Hospital course: Mr. Amaro is a 81 year old male - Time Spent with Patient Total time spent providing and/or coordinating discharge services: - Constitutional Vitals: Temp Pulse Resp BP Pulse Ox 97.4 F L 78 18 93/62 95 06/17/17 13:30 06/17/17 07:09 06/17/17 13:30 06/17/17 13:30 06/17/17 08:07 - Attending Attestation I examined this patient and my medical decision-making was reviewed with the Resident Physician. I agree with the documented findings, disposition and treatment plan as described except to the extent set forth below.
[2017-06-17] MEDS ORDERED: 0.9 % Sodium Chloride 1,000 ML ONE (11:18)
[2017-06-17 13:31] VITALS: BP 93/62
[2017-06-17] MEDS ORDERED: Aminoglycoside Consult 1 EACH MC ONE (15:04)
--- NOTE | 2017-06-17 16:49 | Event Note ---
Date of Encounter: 06/17/17 Time of Encounter: 16:46 Nephrology - Dialysis note: Delayed documentation entry. Pt was transfered out of the ICU to the floor a few days aog, and it appears that the consult order to nephrology was somehow cancelled (or not continued), and so he was not on the census list for [facility]. He was not seen yesterday by my colleague. Today, I happen to notice that he was still here, and arranged and ordered for HD today (Tuesday) , which is his routine day for M/W/F dialysis. Orders: 3.5hr, with target UF of about 2kg as tolerated (he has chronic relative hypotension).
== END 2017-06-17 15:05 | disposition home or self-care (01) | DRG 208 ==
LOC: EMEROO 21:05 → ICNU 22:49 → 2ANU 06-15 16:16
PROVIDERS: ADMIT Internal Medicine; ATTEND Internal Medicine

== ENCOUNTER 2018-01-04 20:07 | Observation (INO) ==
[2018-01-04 20:48] LABS: Basophils % 0.5 %; Eosinophils # 0.2 K/mcL (0.0-0.6); Eosinophils % 3.5 %; Hematocrit 37.4 % (37.5-50.1); Hemoglobin 12.4 g/dL (12.9-16.9); Immature Granulocytes % 0.3 % (0-4); Lymphocytes # 1.4 K/mcL (0.6-4.6); Mean Corpuscular HGB Conc 33.2 g/dL (31.6-35.5); Mean Corpuscular Hemoglobin 34.3 pg (28.0-33.3); Mean Corpuscular Volume 103.6 fL (83.0-100.0); Mean Platelet Volume 10.7 fL (9.4-12.4); Monocytes # 0.9 K/mcL (0.0-1.3); Monocytes % 14.5 %; Neutrophils # 3.9 K/mcL (1.6-8.9); Platelet Count 175 K/mcL (140-400); Red Blood Count 3.61 M/mcL (4.19-5.50); Red Cell Distribution Width 13.2 % (11.5-14.5); Segmented Neutrophils % 60.2 %
[2018-01-04 20:55] LABS: INR 1.1; Prothrombin Time 11.7 Seconds (9.4-12.1)
[2018-01-04 20:58] LABS: Activated Partial Thrombo Time 32.4 Seconds (26.0-36.0)
[2018-01-04 21:09] LABS: Calcium 9.6 mg/dL (8.6-10.3); Potassium 4.1 mEq/L (3.5-5.1)
[2018-01-04 21:12] LABS: Troponin I 0.05 ng/mL (< 0.04)
--- NOTE | 2018-01-04 21:43 | Emergency Department Note ---
START Narrative - START START: I, Miki Malave, examined this patient and my medical decision-making was reviewed with the AIRCRAFT ARMORER/PA/Advanced Practice Nurse/Resident Physician. I agree with the documented findings, disposition and treatment plan as described except to the extent set forth below. 82-year-old male presents emergency Department with concerns of increased weakness, fatigue after dialysis. Patient received dialysis today and afterwards had onset of his weakness and fatigue. He had his pulse checked by the daughter who is a call center recruiter and noticed his heart rate in the 30s. He had decreased capillary refill greater than 5 seconds during initial evaluation at the local [place]. They state his initial blood pressure was 76/42 and heart rate was 64 and he was satting 82% on room air. They stated he was initially pale and cold. Patient was given 800 mL of fluid and his blood pressure improved to a systolic 110 on reevaluation in the emergency department. Patient is now awake and alert and answering questions appropriately. He denied chest pain throughout this event. He feels comfortable with the plan for admission to the hospital for further care and evaluation and observation overnight.
--- NOTE | 2018-01-04 21:46 | Emergency Department Note ---
Disposition Clinical Impression: Bradycardia Hypotension Qualifiers: Hypotension type: other hypotension type Qualified Code(s): I95.89 - Other hypotension Disposition: Admitted As Inpatient Condition: Good Referrals: Rena Christianson, [employer]ORTH[employer] TEACHER [Primary Care Provider] - Forms: ED Satisfaction Letter, Work/School Release Time of Disposition: 21:47 General Adult HPI - General Chief complaint: ED General Medical Stated complaint: Cardiac Time Seen by Provider: 01/04/18 20:08 Source: patient, family, EMS Mode of arrival: EMS Limitations: no limitations Nursing Notes Reviewed: Yes Vital Signs Reviewed: Yes - History of Present Illness HPI Narrative: 82-year-old male with significant past medical history of end-stage renal disease, dialysis Tuesday, Tuesday and Tuesday presenting to the emergency Department chief complaint of hypotension and bradycardia. Patient has a pacemaker and defibrillator placed. Today he had dialysis and after 10:30. When he got home he said he is a little more tired than normal and rested for the day. His daughter came by to visit him and she states he was very pale. She took his pulse which she states was 30 and his blood pressure with systolic 80. She brought him to the local fire department where they stated his blood pressure was 76/42 and his pulse was 64 bpm. Patient felt weak during this episode but denied chest pain or shortness of breath. He is completely asymptomatic at this time. Pain Scale: 0 - Related Data Home Medications Medication Instructions Recorded Confirmed Allopurinol [Zyloprim] 200 mg PO DAILY 09/10/15 07/04/17 Aspirin Enteric Coated [Aspirin EC] 81 mg PO DAILY 09/10/15 07/04/17 Clopidogrel [Plavix] 75 mg PO QPM 09/10/15 07/05/17 Finasteride [Proscar] 5 mg PO QPM 09/10/15 07/04/17 Fluticasone Propionate Nasal 100 mcg NS DAILY 06/13/17 07/04/17 [Flonase] Furosemide [Lasix] 20 mg PO TID 06/13/17 07/04/17 Oxygen 2 - 3 l NS AD 06/13/17 07/04/17 LORazepam [Ativan] 0.5 mg PO HS PRN 07/05/17 07/05/17 Previous Rx's Medication Instructions Recorded Tamsulosin [Flomax] 0.4 mg PO QAM capsule 01/22/17 Escitalopram [Lexapro] 10 mg PO DAILY tab 07/07/17 Isosorbide MONOnitrate (24 HR) 30 mg PO DAILY 07/07/17 [Imdur] Metoprolol XL (24 HR) Succ [Toprol 12.5 mg PO DAILY 07/07/17 Xl] Omeprazole [PriLOSEC] 20 mg PO DAILY #30 cap 07/07/17 Simvastatin [Zocor] 40 mg PO QPM tab 07/07/17 Allergies Allergy/AdvReac Type Severity Reaction Status Date / Time No Known Allergies Allergy Verified 01/30/17 18:33 All systems ED: reviewed and negative except as stated. Past Medical History - Past Medical History Attestation: Yes The following information was validated with the patient. Medical history: Reports: arthritis, atrial fibrillation, cardiomyopathy, CHF, coronary artery disease, GERD, hyperlipidemia, hypertension, myocardial infarction, renal disease, other Surgical history: Reports: angioplasty/stent, cataract, knee replacement, orthopedic, other, pacemaker/AICD, other Psychiatric history: Reports: anxiety - Social History Smoking Status: Never smoker Smokeless Tobacco Status: No Alcohol use: Reports: none Drug use: Reports: none Physical Exam - General Limitations: no limitations General appearance: alert, in no apparent distress - Head Head exam: atraumatic, normocephalic, normal inspection - Eye Eye exam: Present: normal appearance. Absent: scleral icterus, conjunctival injection - ENT ENT exam: normal exam, normal oropharynx, mucous membranes moist - Neck Neck exam: Present: normal inspection, full ROM. Absent: tenderness, meningismus - Chest Chest inspection: Present: normal inspection, symmetric chest wall rise. Absent : tenderness, rash - Respiratory Respiratory exam: Present: normal lung sounds bilaterally. Absent: respiratory distress, wheezes - Cardiovascular Cardiovascular exam: Present: regular rate, normal rhythm - Abdominal Exam Abdominal exam: Present: soft, Non-Tender. Absent: distention, guarding, rebound - Extremities Exam Extremities exam: Present: normal inspection, full ROM - Neurological Exam Neurological exam: Present: alert, oriented X3 - Psychiatric Psychiatric exam: Present: normal affect, normal mood - Skin Skin exam: Present: warm, intact Course Course Narrative: 82-year-old male with significant medical history of chronic kidney disease by dialysis today presented to the emergency Department chief complaint of bradycardia and hypotension. According to daughter who is EMS he is bradycardic in the 30s. We will obtain basic laboratory analysis including CBC , BMP, troponin, EKG and chest x-ray. We will also plan to interrogate the pacemaker. Disposition most likely admission pending these results. Patient is alert and oriented 3 in the room with stable vital signs at this time. He agrees to this plan. - Reevaluation(s) Reevaluation #1: Laboratory analysis mostly unchanged from previous. Patient has been asymptomatic throughout his stay in our emergency department. Review of interrogation report does not show any obvious abnormalities. We will plan to admit the patient at this time for further cardiac evaluation and observation. Patient is alert and oriented 3 in the room with stable vital signs at this time. He agrees to this plan. I spoke with the admitting hospitalist Dr. Coleman who agrees to accept the patient. Vital Signs Temperature 97.8 F 01/04/18 20:11 Pulse Rate 84 01/04/18 20:11 Respiratory Rate 16 01/04/18 20:11 Blood Pressure 110/81 01/04/18 20:11 O2 Sat by Pulse Oximetry 94 01/04/18 20:11 Temperature 97.8 F 01/04/18 20:11 Pulse Rate 62 01/04/18 21:30 Respiratory Rate 16 01/04/18 21:30 Blood Pressure 90/53 01/04/18 21:30 O2 Sat by Pulse Oximetry 97 01/04/18 21:30 Oxygen Delivery Oxygen Delivery Nasal Cannula Medical Decision Making - Lab Data Result diagrams: 01/04/18 20:37 01/04/18 20:37 Lab Results 01/04/18 01/04/18 01/04/18 Range/Units 20:37 20:37 20:37 WBC 6.5 (4.3-11.1) K/mcL RBC 3.61 L (4.19-5.50) M/mcL Hgb 12.4 L (12.9-16.9) g/dL Hct 37.4 L (37.5-50.1) % MCV 103.6 H (83.0-100.0) fL MCH 34.3 H (28.0-33.3) pg MCHC 33.2 (31.6-35.5) g/dL RDW 13.2 (11.5-14.5) % Plt Count 175 (140-400) K/mcL MPV 10.7 (9.4-12.4) fL Immature Gran % 0.3 (0-4) % Seg Neutrophils % 60.2 % Lymphocytes % 21.0 % Monocytes % 14.5 % Eosinophils % 3.5 % Basophils % 0.5 % Neutrophils # 3.9 (1.6-8.9) K/mcL Lymphocytes # 1.4 (0.6-4.6) K/mcL Monocytes # 0.9 (0.0-1.3) K/mcL Eosinophils # 0.2 (0.0-0.6) K/mcL Basophils # 0.0 (0.0-0.2) K/mcL PT 11.7 (9.4-12.1) Seconds INR 1.1 APTT 32.4 (26.0-36.0) Seconds Sodium 136 (136-145) mEq/L Potassium 4.1 (3.5-5.1) mEq/L Chloride 99 (98-107) mEq/L Carbon Dioxide 26 (23-29) mEq/L BUN 38 H (8-23) mg/dL Creatinine 4.07 H (0.70-1.30) mg/dL Est GFR ( Amer) 17 L (> 60) Est GFR (Non-Af Amer) 14 L (> 60) BUN/Creatinine Ratio 9 (6-26) Glucose 162 H (70-105) mg/dL Calculated Osmolality 295 (280-300) Calcium 9.6 (8.6-10.3) mg/dL Troponin I 0.05 H* (< 0.04) ng/mL - EKG Data EKG #1 EKG attestation: Yes I reviewed and interpreted this EKG. EKG results narrative: Ventricularly paced rhythm. 61 bpm. NM interval 174, QRS 226, QTc 525. Does not meet Sgarbosa criteria. Compared to previous EKG completed on 07/04/2017 no significant changes noted
[2018-01-04] MEDS ORDERED: Acetaminophen 325 MG TABLET PO PRN (22:08)
[2018-01-04] MEDS ORDERED: *HR* LORazepam 0.5 MG TABLET PO PRN (22:08)
[2018-01-04] MEDS ORDERED: Naloxone 0.4 MG/ML INJ IVP PRN (22:10)
--- NOTE | 2018-01-04 22:41 | Internal Med History&Physical ---
<Corey Ricks J - Last Filed: 01/04/18 23:09> Date of Encounter: 01/04/18 Time of Encounter: 22:36 Assessment and Plan (1) Bradycardia Current visit: Yes Status: Resolved Was bradycardic this afternoon via EMS following HD appointment. Now A/V paced with a rate of 61 -Continuous tele, spo2 monitoring -trend troponin -Consult cardiology- ED Physician spoke with Dr. Morris who has agreed to see the patient -Pacer interrogation in the am (2) Hypotension Current visit: Yes Status: Acute Remains hypotensive with SBP in the 90's. MAP >65. Hold antiHTN meds, continue to monitor Qualifiers: Hypotension type: other hypotension type Qualified Code(s): I95.89 - Other hypotension (3) CAD (coronary artery disease), [place] coronary artery Current visit: Yes Status: Chronic Continue plavix, ASA, imdur and statin Qualifiers: [place] vs. transplanted heart: [place] heart Associated angina: without angina Qualified Code(s): I25.10 - Atherosclerotic heart disease of [place] coronary artery without angina pectoris (4) ESRD (end stage renal disease) on dialysis Current visit: Yes Status: Chronic Last HD today. Weakness and fatigue S/P HD today with hypotension and bradycardia. Follows with Dr. Powers and has a chair at [facility] for - HD. -consult Nephrology to follow while inpatient- days team to call (5) HLD (hyperlipidemia) Current visit: No Status: Chronic Qualifiers: Hyperlipidemia type: mixed hyperlipidemia Qualified Code(s): E78.2 - Mixed hyperlipidemia (6) HTN (hypertension) Current visit: No Status: Chronic Qualifiers: Hypertension type: essential hypertension Qualified Code(s): I10 - Essential (primary) hypertension (7) DVT prophylaxis Current visit: Yes Status: Acute Heparin 5000 units SC BID Internal Medicine - H&P: HPI Chief complaint: weakness, fatigue, and bradycardia after dialysis Admitted From: Home Plans for Post Hospital Care: Home History of present illness: Mr. Amaro is a 82 year old male with a PMH of arthritis, atrial fibrillation, cardiomyopathy, CHF, coronary artery disease, GERD, hyperlipidemia , hypertension, myocardial infarction, and ESRD. He is a M-W-F HD patient who follow with Dr. Powers and has a chair at [facility]. He reports that he has been feeling weak and fatigued since his HD appointment today. He states that his daughter came by to visit him today because he wasnt feeling well and she noticed that he was very pale. She took his BP and pulse and noticed that he was hypotensive and his pulse was in the 30's He received 1 liter of normal saline via EMS and his BP and pulse improved. He does have a pacer AICD. Dr. Morris was called by the ED physician and he recommends admission with a pacer interrogation in the morning. He denies any fevers, chills, chest pain, SOB, N/ V/D, abdominal pain or swelling. Past Med Surg Social Fam HX - Past Medical History Medical history: arthritis, atrial fibrillation, cardiomyopathy, CHF, coronary artery disease, GERD, hyperlipidemia, hypertension, myocardial infarction, renal disease, other Psychiatric history: anxiety - Past Surgical History Surgical History: angioplasty/stent, cataract, knee replacement, orthopedic, other, pacemaker/AICD, other - Social History Smoking Status: Never smoker Smokeless Tobacco Status: No Alcohol use: none Drug use: none - Family History Brother Family Member Ethnicity: Non- Living Status: Still Living Sister Family Member Ethnicity: Non- Living Status: Still Living Hx Family Cardiac Disorders: Yes ([place], HD) Hx Family Endocrine Disorder: Yes (DM) Mother Family Member Ethnicity: Non- Living Status: Hx Family Cardiac Disorders: Yes (HD) Hx Family Respiratory Disorders: No Hx Family Cancer: No Hx Family GI Disorders: No Hx Family Endocrine Disorder: Yes (DM) Hx Family Neuromuscular Disorders: No Hx Family Neurologic Disorders: No Hx Family HEENT Disorders: No Hx Family Autoimmune Disorders: No Father Family Member Ethnicity: Non- Living Status: Hx Family Cardiac Disorders: Yes Hx Family Neurologic Disorders: Yes (Alzheimer's disease) Internal Medicine - H&P: Meds Allopurinol [Zyloprim] 200 mg PO DAILY 09/10/15 [History] Aspirin Enteric Coated [Aspirin EC] 81 mg PO DAILY 09/10/15 [History] Clopidogrel [Plavix] 75 mg PO QPM 09/10/15 [History] Finasteride [Proscar] 5 mg PO QPM 09/10/15 [History] Tamsulosin [Flomax] 0.4 mg PO QAM capsule 01/22/17 [Rx] Fluticasone Propionate Nasal [Flonase] 100 mcg NS DAILY 06/13/17 [History] Furosemide [Lasix] 20 mg PO TID 06/13/17 [History] Oxygen 3 l NS AD 06/13/17 [History] LORazepam [Ativan] 0.5 mg PO HS PRN 07/05/17 [History] Escitalopram [Lexapro] 10 mg PO DAILY tab 07/07/17 [Rx] Isosorbide MONOnitrate (24 HR) [Imdur] 30 mg PO DAILY 07/07/17 [Rx] Simvastatin [Zocor] 40 mg PO QPM tab 07/07/17 [Rx] Acetaminophen [Tylenol] 650 mg PO Q6H PRN 01/04/18 [History] Lidocaine/Prilocaine CREAM [Emla] 1 appl TP AD 01/04/18 [History] Metoprolol XL (24 HR) Succ [Toprol Xl] 25 mg PO DAILY PRN 01/04/18 [History] Pantoprazole Sodium [Protonix] 40 mg PO DAILY 01/04/18 [History] Renal Vitamin [Renal Caps Softgel] 1 mg PO DAILY 01/04/18 [History] Sevelamer [Renvela] 800 mg PO TIDWM 01/04/18 [History] 3 Allergy/AdvReac Type Severity Reaction Status Date / Time No Known Allergies Allergy Verified 01/30/17 18:33 All Systems PM: A 10-system review of systems was performed and is negative for pertinent findings except as documented above in the HPI. - Constitutional Constitutional: as per HPI - EENT Eyes: as per HPI - Cardiovascular Cardiovascular ROS IM: no chest pain, no diaphoresis, no dyspnea, no lightheadedness, no palpitations, no syncope - Respiratory Respiratory: no cough, no dyspnea, no wheezing, no excessive phlegm production - Gastrointestinal Gastrointestinal: no abdominal pain, no diarrhea, no hematemesis, no hematochezia, no melena, no nausea, no vomiting - Musculoskeletal Musculoskeletal ROS IM: no numbness, no tingling - Integumentary Integumentary IM: no rash, no unusual bruising - Neurological Neurological ROS: no confusion, no convulsions, no focal weakness, no numbness, no tingling, no tremor(s) - Constitutional Vitals: Temp Pulse Resp BP Pulse Ox 97.8 F 62 16 90/53 97 01/04/18 20:11 01/04/18 21:30 01/04/18 21:30 01/04/18 21:30 01/04/18 21:30 General appearance: Present: cooperative, A&O X 3, no acute distress, answers questions appropriately - Head Head exam: Present: atraumatic, normocephalic - Eye Pupils: Present: PERRL - Neck Neck exam general surgery: Present: supple, trachea midline. Absent: lymphadenopathy - Respiratory Respiratory exam: Present: CTAB. Absent: accessory muscle use, rales, rhonchi, wheezes - Cardiovascular Cardiovascular exam: Present: RRR, +S1, +S2. Absent: diastolic murmur, gallop, rubs, systolic murmur - GI/Abdominal GI/Abdominal exam: Present: normal bowel sounds, soft, no peritoneal signs. Absent: distended, tenderness - Extremities Exam Extremities exam: Present: warm, radial pulses palpable and symmetrical. Absent : calf tenderness, cyanotic, pedal edema - Neurological Exam Neurological exam: Present: alert, oriented X3. Absent: facial droop, speech deficit - Skin Skin exam: Present: dry, intact Internal Med - H&P Results - Labs CBC & Chem 7: 01/04/18 20:37 01/04/18 20:37 - EKG Data -: EKG Interpreted by Myself - EKG Data EKG comments: A/V paced rate of 61 01/04/18 22:42 - Impressions Impressions Chest X-Ray 01/04/18 20:29 IMPRESSION: Mild pulmonary edema, similar in appearance to prior. D/ / Celeste Cali MD / Celeste Cali MD Interpreting Provider: Celeste Cali MD <Mila Coleman - Last Filed: 01/05/18 00:25> Date of Encounter: 01/04/18 Time of Encounter: 23:45 Internal Medicine - H&P: HPI History of present illness: Mr. Amaro is a 82 year old male All Systems PM: A 10-system review of systems was performed and is negative for pertinent findings except as documented above in the HPI. - Constitutional Vitals: Temp Pulse Resp BP Pulse Ox 97.9 F 60 18 93/58 97 01/04/18 22:56 01/04/18 22:56 01/04/18 22:56 01/04/18 22:56 01/04/18 22:56 Internal Med - H&P Results - Labs CBC & Chem 7: 01/04/18 20:37 01/04/18 20:37 - Attending Attestation I examined this patient and my medical decision-making was reviewed with the Nurse Practitioner, Corey Ricks. I agree with the documented findings, disposition and treatment plan as described with any changes as documented below. 82-year-old male patient with history of permanent pacemaker, AICD placement, end-stage renal disease on hemodialysis presented to the ER with complaints of generalized weakness and tiredness. Symptoms began after his dialysis session today. Noted to be bradycardic by his daughter who is an EMS personnel. He was evidently taken to a fire station where he received IV fluids and also an EKG was done. He was found to be hypotensive there. EKG is not available here. His heart rate has been normal over here and his blood pressure has also improved. He is already feeling better. On examination, patient is awake and alert. S1 and S2 are normal. Respiratory examination is normal. Possible symptomatic bradycardia: Consult cardiology for further evaluation. Monitor with telemetry. Hypotension: Likely dialysis related hypotension. Now resolved. Continue to monitor blood pressure and hold antihypertensives for now. Coronary artery disease: Continue aspirin, Plavix and statin. End-stage renal disease on hemodialysis: Consult nephrology for dialysis needs.
[2018-01-05 00:41] LABS: Basophils % 0.7 %; Eosinophils # 0.3 K/mcL (0.0-0.6); Eosinophils % 4.4 %; Hematocrit 37.5 % (37.5-50.1); Hemoglobin 12.3 g/dL (12.9-16.9); Immature Granulocytes % 0.2 % (0-4); Lymphocytes # 1.4 K/mcL (0.6-4.6); Lymphocytes % 24.6 %; Mean Corpuscular HGB Conc 32.8 g/dL (31.6-35.5); Mean Corpuscular Hemoglobin 34.3 pg (28.0-33.3); Mean Corpuscular Volume 104.5 fL (83.0-100.0); Mean Platelet Volume 10.5 fL (9.4-12.4); Monocytes # 0.7 K/mcL (0.0-1.3); Monocytes % 12.6 %; Neutrophils # 3.2 K/mcL (1.6-8.9); Platelet Count 177 K/mcL (140-400); Red Blood Count 3.59 M/mcL (4.19-5.50); Red Cell Distribution Width 13.2 % (11.5-14.5); Segmented Neutrophils % 57.5 %
[2018-01-05 01:01] LABS: Albumin 3.8 g/dL (3.5-5.7); Albumin/Globulin Ratio 1.3 (1.1-2.2); Bilirubin,Total 0.4 mg/dL (0.3-1.0); Calcium 9.7 mg/dL (8.6-10.3); Globulin 2.9 g/dL (2.4-3.5); Potassium 4.3 mEq/L (3.5-5.1); Total Protein 6.7 g/dL (6.4-8.9)
[2018-01-05] MEDS ORDERED: *HR* Heparin 5,000 UNIT/ML VIAL SQ SCH (06:00)
[2018-01-05] MEDS: Furosemide 20 MG TABLET PO SCH ×2 (08:25→11:49)
--- NOTE | 2018-01-05 08:28 | Nephrology Consult Note ---
Date of Encounter: 01/05/18 Time of Encounter: 08:26 Assessment and Plan (1) ESRD (end stage renal disease) on dialysis Current Visit: Yes Status: Chronic Plan for HD tomorrow Renal diet Strict I/Os Avoid nephrotoxins (2) Bradycardia Current Visit: Yes Status: Resolved per cardiology team History of Present Illness - Reason for Consult Consult date: 01/05/18 - Chief Complaint Bradycardia, ESRD on dialysis - History of Present Illness Mr. Amaro is a 82 year old male well known to our practice with a PMH of arthritis, atrial fibrillation, cardiomyopathy, CHF, coronary artery disease, GERD, hyperlipidemia, hypertension, myocardial infarction, and ESRD. He reported that he has been feeling weak and fatigued since his HD appointment today. Daughter took his BP and pulse and noticed that he was hypotensive and his pulse was in the 30's He received 1 liter of normal saline via EMS and his BP and pulse improved. He does have a pacer AICD. Dr. Morris was called by the ED physician and he recommends admission with a pacer interrogation this morning. Patient states he is feeling much better today. Nephrology has been consulted to manage his HD while hospitalized Past Med Surg Social Fam HX - Past Medical History Medical history: arthritis, atrial fibrillation, cardiomyopathy, CHF, coronary artery disease, GERD, hyperlipidemia, hypertension, myocardial infarction, renal disease, other Psychiatric history: anxiety - Past Surgical History Surgical History: angioplasty/stent, cataract, knee replacement, orthopedic, other, pacemaker/AICD, other - Social History Smoking Status: Never smoker Smokeless Tobacco Status: No Alcohol use: none Drug use: none - Family History Brother Family Member Ethnicity: Non- Living Status: Still Living Sister Family Member Ethnicity: Non- Living Status: Still Living Hx Family Cardiac Disorders: Yes ([place], HD) Hx Family Endocrine Disorder: Yes (DM) Mother Family Member Ethnicity: Non- Living Status: Hx Family Cardiac Disorders: Yes (HD) Hx Family Respiratory Disorders: No Hx Family Cancer: No Hx Family GI Disorders: No Hx Family Endocrine Disorder: Yes (DM) Hx Family Neuromuscular Disorders: No Hx Family Neurologic Disorders: No Hx Family HEENT Disorders: No Hx Family Autoimmune Disorders: No Father Family Member Ethnicity: Non- Living Status: Hx Family Cardiac Disorders: Yes Hx Family Neurologic Disorders: Yes (Alzheimer's disease) Medications and Allergies Allopurinol [Zyloprim] 200 mg PO DAILY 09/10/15 [History] Aspirin Enteric Coated [Aspirin EC] 81 mg PO DAILY 09/10/15 [History] Clopidogrel [Plavix] 75 mg PO QPM 09/10/15 [History] Finasteride [Proscar] 5 mg PO QPM 09/10/15 [History] Tamsulosin [Flomax] 0.4 mg PO QAM capsule 01/22/17 [Rx] Fluticasone Propionate Nasal [Flonase] 100 mcg NS DAILY 06/13/17 [History] Furosemide [Lasix] 20 mg PO TID 06/13/17 [History] Oxygen 3 l NS AD 06/13/17 [History] LORazepam [Ativan] 0.5 mg PO HS PRN 07/05/17 [History] Escitalopram [Lexapro] 10 mg PO DAILY tab 07/07/17 [Rx] Isosorbide MONOnitrate (24 HR) [Imdur] 30 mg PO DAILY 07/07/17 [Rx] Simvastatin [Zocor] 40 mg PO QPM tab 07/07/17 [Rx] Acetaminophen [Tylenol] 650 mg PO Q6H PRN 01/04/18 [History] Lidocaine/Prilocaine CREAM [Emla] 1 appl TP AD 01/04/18 [History] Metoprolol XL (24 HR) Succ [Toprol Xl] 25 mg PO DAILY PRN 01/04/18 [History] Pantoprazole Sodium [Protonix] 40 mg PO DAILY 01/04/18 [History] Renal Vitamin [Renal Caps Softgel] 1 mg PO DAILY 01/04/18 [History] Sevelamer [Renvela] 800 mg PO TIDWM 01/04/18 [History] 3 Allergy/AdvReac Type Severity Reaction Status Date / Time No Known Allergies Allergy Verified 01/30/17 18:33 Review of Systems All Systems: reviewed and no additional remarkable complaints except as stated Constitutional: malaise, weakness, no anorexia, no chills, no fever(s) Cardiovascular: no chest pain, no dyspnea, no leg edema Respiratory: no cough Gastrointestinal: no nausea, no vomiting Neurological: no behavioral changes Exam - Vital Signs Vital signs: Initial Vital Signs Temp Pulse Resp BP Pulse Ox 97.8 F 84 16 110/81 94 01/04/18 20:11 01/04/18 20:11 01/04/18 20:11 01/04/18 20:11 01/04/18 20:11 Vital Signs - Last 8 Hours Temp Pulse Resp BP Pulse Ox 01/05/18 07:33 98.5 F 61 18 104/59 96 01/05/18 04:30 97.5 F L 60 18 100/57 98 Intake and Output 01/04/18 01/05/18 01/05/18 23:59 07:59 15:59 Intake Total 240 / 240 Output Total 0 / 0 Balance 240 / 240 0 / 0 Intake: Oral 240 / 240 Output: Urine 0 / 0 Other: Meal ham sandwich Percent of Meal Consumed 100% Weight 67.812 kg Patient Weight 01/05/18 23:59 Weight 67.812 kg - General Appearance General appearance: well-developed, well-nourished EENT: ATNC, mucous membranes moist, hearing intact, vision intact Neck: supple Respiratory: clear Cardiology: no edema, normal S1, normal S2 - Dialysis Access Dialysis Vascular Access: Arteriovenous Fistula Gastrointestinal: no tenderness, no guarding Integumentary: warm and dry Neurologic: alert and oriented x3 Psychiatric: mood/affect appropriate, cooperative Results - Lab Results 01/05/18 00:26 01/05/18 00:26 Most recent lab results Calcium 9.7 mg/dL (8.6-10.3) 01/05/18 00:26 Consult Discharge Plan - Plan Referrals: Rena Christianson, [employer]AN [Primary Care Provider] -
[2018-01-05] MEDS ORDERED: Fluticasone Propionate Nasal 50 MCG/SPRAY BOTTLE NS SCH (09:00)
[2018-01-05] MEDS ORDERED: Aspirin Enteric Coated 81 MG Tablet PO SCH (09:00)
[2018-01-05] MEDS ORDERED: Isosorbide MONOnitrate (24 HR) 30 MG TAB.ER.24H PO SCH (09:00)
[2018-01-05] MEDS ORDERED: Renal Vitamin 1 MG CAPSULE PO SCH (09:00)
[2018-01-05 09:06] LABS: Hepatitis B Surface Antigen Nonreactive (Nonreactive)
[2018-01-05 11:16] VITALS: BP 95/55
--- NOTE | 2018-01-05 14:00 | Discharge Summary ---
Orders not resulted at time of discharge: Pending orders 01/05/18 07:06 Hepatitis B Surface Antibody Stat Hepatitis B Surface Antigen Stat Date of Encounter: 01/05/18 Time of Encounter: 09:50 - Discharge Diagnosis (1) Bradycardia Priority: Primary Status: Acute (2) CAD (coronary artery disease), [place] coronary artery Priority: Secondary Status: Chronic Qualifiers: [place] vs. transplanted heart: [place] heart Associated angina: without angina Qualified Code(s): I25.10 - Atherosclerotic heart disease of [place] coronary artery without angina pectoris (3) ESRD (end stage renal disease) on dialysis Priority: Secondary Status: Chronic (4) Anemia Priority: Secondary Status: Chronic Qualifiers: Anemia type: unspecified type Qualified Code(s): D64.9 - Anemia, unspecified (5) HLD (hyperlipidemia) Priority: Secondary Status: Chronic Qualifiers: Hyperlipidemia type: mixed hyperlipidemia Qualified Code(s): E78.2 - Mixed hyperlipidemia (6) HTN (hypertension) Priority: Secondary Status: Chronic Qualifiers: Hypertension type: essential hypertension Qualified Code(s): I10 - Essential (primary) hypertension (7) Presence of combination internal cardiac defibrillator (ICD) and pacemaker Priority: Secondary Status: Chronic (8) Cardiomyopathy, ischemic Priority: Secondary Status: Chronic Hospital course: Mr. Amaro is a 82 year old male with multiple medical problems who was brought in by family with concerns for bradycardia at home. Patient underwent regular hemodialysis sessions yesterday and has remained asymptomatic with no chest pain, dyspnea, dizziness or syncope. He is noted to have borderline low blood pressure with systolic in the 90s, which is likely his baseline. Basic labs showed no acute abnormality. He was placed on telemetry monitoring and heart rate was noted to be above 60. ICD/Pacemaker interrogation was done; discussed with cardiology, showed no events of bradycardia or arrhythmia or shocks, he is medically stable for discharge, with outpatient follow-up. Discharge discussed with: patient - Time Spent with Patient Total time spent providing and/or coordinating discharge services: Greater than 30 minutes (45 min) - Discharge Medications Home Medications: Allopurinol [Zyloprim] 200 mg PO DAILY 09/10/15 [History] Aspirin Enteric Coated [Aspirin EC] 81 mg PO DAILY 09/10/15 [History] Clopidogrel [Plavix] 75 mg PO QPM 09/10/15 [History] Finasteride [Proscar] 5 mg PO QPM 09/10/15 [History] Tamsulosin [Flomax] 0.4 mg PO QAM capsule 01/22/17 [Rx] Fluticasone Propionate Nasal [Flonase] 100 mcg NS DAILY 06/13/17 [History] Furosemide [Lasix] 20 mg PO TID 06/13/17 [History] Oxygen 3 l NS AD 06/13/17 [History] LORazepam [Ativan] 0.5 mg PO HS PRN 07/05/17 [History] Escitalopram [Lexapro] 10 mg PO DAILY tab 07/07/17 [Rx] Isosorbide MONOnitrate (24 HR) [Imdur] 30 mg PO DAILY 07/07/17 [Rx] Simvastatin [Zocor] 40 mg PO QPM tab 07/07/17 [Rx] Acetaminophen [Tylenol] 650 mg PO Q6H PRN 01/04/18 [History] Lidocaine/Prilocaine CREAM [Emla] 1 appl TP AD 01/04/18 [History] Metoprolol XL (24 HR) Succ [Toprol Xl] 25 mg PO DAILY PRN 01/04/18 [History] Pantoprazole Sodium [Protonix] 40 mg PO DAILY 01/04/18 [History] Renal Vitamin [Renal Caps Softgel] 1 mg PO DAILY 01/04/18 [History] Sevelamer [Renvela] 800 mg PO TIDWM 01/04/18 [History] Allergies/Adverse Reactions: 3 Allergy/AdvReac Type Severity Reaction Status Date / Time No Known Allergies Allergy Verified 01/30/17 18:33 Date of admission: 01/04/18 22:26 Primary care physician: Rena Christianson CNP Consults: 01/04/18 22:48 Consult to Nephrology [CONS] Routine Consulting Provider: Kidney Tonia/GERTRUDE/MYESHA/MERLIN Reason for Consult: follows with Dr. Powers. M-W-F patient. May need HD if he stays Time Notified: 22:48 Call Completed: Yes 01/04/18 23:27 Consult to Cardiology [CONS] Routine Comment: Consulting Provider: Cardiology [facility] Reason for Consult: ? Bradycardia at home Call Completed: No Discharging clinician: Juanita Forrester Anticipated date of discharge: 01/05/18 - Constitutional Vitals: Temp Pulse Resp BP Pulse Ox 97.3 F L 62 16 95/55 96 01/05/18 11:14 01/05/18 11:14 01/05/18 11:14 01/05/18 11:14 01/05/18 11:14 General appearance: Present: cooperative, A&O X 3, no acute distress, answers questions appropriately - Cardiovascular Cardiovascular exam: Present: RRR, +S1, +S2. Absent: diastolic murmur, gallop, rubs, systolic murmur - Patient Status Disposition: Hospice - Home Condition: Good Functional capacity at discharge: independent ambulation Overall status at discharge: patient is progressing back to baseline - Discharge Instructions Follow Up With: Rena Christianson, ADMINISTRATION INTERN [Primary Care Provider] - 01/09/18 9:00 am (Please follow up as schedule...) Additional Instructions: F/up for HD 3times/week- MWF - Diet and Activity Activity: resume usual activities as tolerated, wear oxygen at all times Diet: low fat, low cholesterol, low salt diet, other (renal diet)
--- NOTE | 2018-01-05 14:27 | Physician Discharge Referral ---
Home Health/Hosp Referral Info Transfer to: Hospice Attending Provider: Juanita Forrester Provider in Charge Post Discharge: PCP - Diagnosis (1) Bradycardia Priority: Primary Status: Acute (2) CAD (coronary artery disease), [place] coronary artery Priority: Secondary Status: Chronic (3) ESRD (end stage renal disease) on dialysis Priority: Secondary Status: Chronic (4) Anemia Priority: Secondary Status: Chronic (5) HLD (hyperlipidemia) Priority: Secondary Status: Chronic (6) HTN (hypertension) Priority: Secondary Status: Chronic (7) Presence of combination internal cardiac defibrillator (ICD) and pacemaker Priority: Secondary Status: Chronic (8) Cardiomyopathy, ischemic Priority: Secondary Status: Chronic - Respiratory Orders Oxygen / L per min (2L/min via NC) Smoking Cessation: Smoking cessation has been advised. For more information, call the [employer] Quit Line at 1-884-AIXG-NOW. - Diet/Nutrition Diet/Nutrition Orders: Renal, Cardiac - Activity Activity Orders: Ambulate - Services Needed Following services are medically necessary services: Nursing, Physical Therapy, Occupational Therapy - Transfer Medications Home Medications: Allopurinol [Zyloprim] 200 mg PO DAILY 09/10/15 [History] Aspirin Enteric Coated [Aspirin EC] 81 mg PO DAILY 09/10/15 [History] Clopidogrel [Plavix] 75 mg PO QPM 09/10/15 [History] Finasteride [Proscar] 5 mg PO QPM 09/10/15 [History] Tamsulosin [Flomax] 0.4 mg PO QAM capsule 01/22/17 [Rx] Fluticasone Propionate Nasal [Flonase] 100 mcg NS DAILY 06/13/17 [History] Furosemide [Lasix] 20 mg PO TID 06/13/17 [History] Oxygen 3 l NS AD 06/13/17 [History] LORazepam [Ativan] 0.5 mg PO HS PRN 07/05/17 [History] Escitalopram [Lexapro] 10 mg PO DAILY tab 07/07/17 [Rx] Isosorbide MONOnitrate (24 HR) [Imdur] 30 mg PO DAILY 07/07/17 [Rx] Simvastatin [Zocor] 40 mg PO QPM tab 07/07/17 [Rx] Acetaminophen [Tylenol] 650 mg PO Q6H PRN 01/04/18 [History] Lidocaine/Prilocaine CREAM [Emla] 1 appl TP AD 01/04/18 [History] Metoprolol XL (24 HR) Succ [Toprol Xl] 25 mg PO DAILY PRN 01/04/18 [History] Pantoprazole Sodium [Protonix] 40 mg PO DAILY 01/04/18 [History] Renal Vitamin [Renal Caps Softgel] 1 mg PO DAILY 01/04/18 [History] Sevelamer [Renvela] 800 mg PO TIDWM 01/04/18 [History] Allergies/Adverse Reactions: 3 Allergy/AdvReac Type Severity Reaction Status Date / Time No Known Allergies Allergy Verified 01/30/17 18:33 Certification: Further, I certify that my clinical findings support that this patient is homebound (i.e. absences from home require considerable and taxing effort and are for medical reasons or gnosticism services or infrequently or short duration when for other reasons) because: Homebound Reason: Patient requires assistance of a person or device to safely leave home, Leaving home requires considerable and taxing effort due to condition, Altered mental status requiring supervision when leaving home Attestation: My signature below is to certify that this patient is under my care and that I, or nurse practitioner, or a physician's assistant pastry chef working with me, has a face-to -face encounter with this patient.
[2018-01-06 03:26] LABS: Hepatitis B Surface Antibody 71.37 mIU/mL
--- NOTE | 2018-01-06 16:22 | Electrocardiograph Report ---
[place] [id number] Test Date: 2018-01-04 Pat Name: Av Amaro Department: 104 Room: 2A32 Gender: M Undercoater: HUGO : 1935 Requested By: Miki Malave Order Number: [id number] Reading MD: Reynaldo Irby DO Measurements Intervals [place] Rate: 61 P: 50 UT: 174 QRS: -76 QRSD: 226 T: 102 QT: 521 QTc: 525 Interpretive Statements ELECTRONIC ATRIAL PACEMAKER ELECTRONIC VENTRICULAR PACEMAKER ABNORMAL RHYTHM ECG Electronically Signed On 01-06-2018 16:20:30 EST by Reynaldo Irby DO
== END 2018-01-05 14:34 | disposition hospice, home (50) ==
LOC: 2ANU 20:07 → EMEROO 20:07 → 2ANU 22:39
PROVIDERS: ADMIT Nurse Practitioner; ATTEND Internal Medicine

== ENCOUNTER 2018-09-06 21:10 | Observation (INO) ==
[2018-09-06] MEDS ORDERED: 0.9 % Sodium Chloride 1,000 ML IVC ONE (21:16)
[2018-09-06] MEDS ORDERED: methylPREDNISolone 125 MG/2 ML VIAL IVP ONE (21:17)
[2018-09-06] MEDS ORDERED: Ipratropium/Albuterol Neb 3 ML IH ONE (21:17)
--- NOTE | 2018-09-06 21:30 | Emergency Department Note ---
Disposition Clinical Impression: Elevated troponin CHF (congestive heart failure) Qualifiers: Heart failure type: unspecified Heart failure chronicity: unspecified Qualified Code(s): I50.9 - Heart failure, unspecified Anemia Qualifiers: Anemia type: unspecified type Qualified Code(s): D64.9 - Anemia, unspecified Disposition: Admitted As Inpatient Condition: Good Time of Disposition: 00:37 SOB HPI - General Chief Complaint: ED Shortness of Breath/Dyspnea Stated Complaint: Marlo Time Seen by Provider: 09/06/18 21:12 Source: patient, EMS Mode of arrival: EMS Limitations: no limitations Nursing Notes Reviewed: Yes Vital Signs Reviewed: Yes - History of Present Illness Pt is an 82 year old male who presents to the emergency department due to an acute episode of SOB that began earlier this morning following dialysis. Pt states that he has had 20 lbs of fluid taken off over the past 3 days due to fluid overload and has had his diet adjusted as well during this time. Pt does have recurrent bouts with CHF and Pneumonia but denies any formal diagnosis of COPD. Pt is on 3L of O2 at home daily. Pt denies any chest pain, palpitations, lightheadness, dizziness or syncope associated with the SOB but does note continued productive cough and increasing lower extremity edema. Pt denies any recent sick contacts as well as any n/v/d, fevers, chills, bodyaches and is up to date on flu vaccination. Remainder of ROS were negative per patient unless otherwise noted. Pt Subjective Complaint: shortness of breath Onset (ago): hour(s) Context: other (Dialysis x3 Successive Days ) Severity: moderate Consistency/Duration: gradually worsening Improves with: nothing Worsens with: nothing Known history of: congestive heart failure, recurrent pneumonia Associated symptoms: Reports: cough, sputum production. Denies: chest pain, pain with inspiration, fever, wheezing, orthopnea, lower extremity pain, polyuria, polydipsia, parasthesias, palpitations, hemoptysis Cough present: Yes Cough Description: Productive Cough Frequency: Intermittent Sputum production: Yes Sputum Amount: Small Sputum Color: White - Related Data Home Medications Medication Instructions Recorded Confirmed RX: Allopurinol [Zyloprim] 200 mg PO DAILY 09/10/15 09/06/18 RX: Aspirin Enteric Coated 81 mg PO DAILY 09/10/15 09/06/18 [Aspirin EC] RX: Clopidogrel [Plavix] 75 mg PO QPM 09/10/15 09/06/18 RX: Finasteride [Proscar] 5 mg PO QPM 09/10/15 09/06/18 RX: Fluticasone Propionate Nasal 100 mcg NS DAILY 06/13/17 09/06/18 [Flonase] RX: Furosemide [Lasix] 20 mg PO TID 06/13/17 09/06/18 RX: Oxygen 3 l NS AD 06/13/17 09/06/18 RX: LORazepam [Ativan] 0.5 mg PO HS PRN 07/05/17 09/06/18 RX: Acetaminophen [Tylenol] 650 mg PO Q6H PRN 01/04/18 09/06/18 RX: Lidocaine/Prilocaine CREAM 1 appl TP AD 01/04/18 09/06/18 [Emla] RX: Metoprolol XL (24 HR) Succ 12.5 mg PO DAILY PRN 01/04/18 09/06/18 [Toprol Xl] RX: Renal Vitamin [Renal Caps 1 mg PO DAILY 01/04/18 09/06/18 Softgel] RX: Sevelamer [Renvela] 800 mg PO TIDWM 01/04/18 09/06/18 RX: Omeprazole [PriLOSEC] 20 mg PO DAILY 09/06/18 09/06/18 Previous Rx's Medication Instructions Recorded RX: Tamsulosin [Flomax] 0.4 mg PO QAM capsule 01/22/17 RX: Escitalopram [Lexapro] 10 mg PO DAILY tab 07/07/17 RX: Isosorbide MONOnitrate (24 HR) 30 mg PO DAILY 07/07/17 [Imdur] RX: Simvastatin [Zocor] 40 mg PO QPM tab 07/07/17 Allergies Allergy/AdvReac Type Severity Reaction Status Date / Time No Known Allergies Allergy Verified 09/06/18 21:16 Constitutional: Reports: weight change (20 lb weight loss from dialysis over 3 days ). Denies: fever, chills, weakness Eyes: Denies: eye pain ENT ED: Denies: ear pain Cardiovascular: Reports: dyspnea on exertion, edema. Denies: chest pain, palpitations, syncope, paroxysmal nocturnal dyspnea Respiratory: Reports: cough. Denies: dyspnea, wheezes, hemoptysis, stridor Gastrointestinal: Denies: abdominal pain, nausea, vomiting, diarrhea Genitourinary: Denies: urgency, dysuria, frequency, hematuria Musculoskeletal: Denies: back pain, neck pain, joint swelling Integumentary: Denies: rash, abrasion, lesions Neurological: Reports: weakness. Denies: headache, numbness, paresthesias Psychiatric: Denies: anxiety, depression, suicidal thoughts Endocrine: Reports: fatigue. Denies: heat or cold intolerance, polydipsia Hematological/Lymphatic: Denies: easy bleeding, easy bruising Allergic/Immunologic: Denies: facial swelling, urticaria Past Medical History - Past Medical History Medical history: Reports: arthritis, atrial fibrillation, cardiomyopathy, CHF, coronary artery disease, GERD, hyperlipidemia, hypertension, myocardial infarction, renal disease, other Surgical history: Reports: angioplasty/stent, cataract, knee replacement, orthopedic, other, pacemaker/AICD, other Psychiatric history: Reports: anxiety - Social History Smoking Status: Never smoker Smokeless Tobacco Status: No Alcohol use: Reports: none Drug use: Reports: none Physical Exam - General Limitations: no limitations General appearance: alert, lethargic - Head Head exam: atraumatic, normocephalic - Eye Eye exam: Present: normal appearance - ENT ENT exam: mucous membranes dry - Neck Neck exam: Present: normal inspection - Chest Chest inspection: Present: normal inspection, symmetric chest wall rise - Respiratory Respiratory exam: Present: other (Crackles bilaterally in the lower lung lobes). Absent: respiratory distress - Cardiovascular Cardiovascular exam: Present: regular rate, normal rhythm, normal heart sounds. Absent: bradycardia, tachycardia, irregular rhythm, systolic murmur - Abdominal Exam Abdominal exam: Present: soft, Non-Tender, normal bowel sounds. Absent: tenderness, distention, guarding, rebound, rigidity, ascites - Extremities Exam Extremities exam: Present: other (Lower, non-pitting edema in legs ) - Expanded Lower Extremity Exam Hip/Pelvis exam: Present: normal inspection Upper leg exam: Present: normal inspection Neurovascular/Tendon exam: Present: normal capillary refill - Neurological Exam Neurological exam: Present: alert, oriented X3 - Psychiatric Psychiatric exam: Present: flat affect - Skin Skin exam: Present: dry, pallor Shortness of Breath/Dyspnea - Lab Data Result diagrams: 09/06/18 21:25 09/06/18 21:25 - EKG Data EKG attestation: Yes I reviewed and interpreted this EKG. EKG results narrative: Ventricular-paced Rhythm consistent with pacemaker and previous EKGs HR - 93, RR interval - 644 ms, [place] interval - 164 ms, QT interval - 462 ms, QTc - [address] changes or deviations from previous EKG concerning for STEMI or Isch emia
[2018-09-06 21:37] LABS: Basophils % 0.5 %; Eosinophils # 0.1 K/mcL (0.0-0.6); Eosinophils % 1.6 %; Hematocrit 22.5 % (37.5-50.1); Hemoglobin 7.3 g/dL (12.9-16.9); Immature Granulocytes % 0.5 % (0-4); Lymphocytes % 12.7 %; Mean Corpuscular HGB Conc 32.4 g/dL (31.6-35.5); Mean Corpuscular Hemoglobin 34.3 pg (28.0-33.3); Mean Corpuscular Volume 105.6 fL (83.0-100.0); Mean Platelet Volume 10.5 fL (9.4-12.4); Monocytes # 1.1 K/mcL (0.0-1.3); Neutrophils # 5.4 K/mcL (1.6-8.9); Platelet Count 196 K/mcL (140-400); Red Blood Count 2.13 M/mcL (4.19-5.50); Segmented Neutrophils % 70.7 %
[2018-09-06 21:44] LABS: INR 1.3; Prothrombin Time 14.7 Seconds (9.4-12.1)
[2018-09-06 21:47] LABS: Activated Partial Thrombo Time 35.8 Seconds (26.0-36.0)
[2018-09-06 21:55] LABS: Albumin 3.8 g/dL (3.5-5.7); Albumin/Globulin Ratio 1.5 (1.1-2.2); Bilirubin,Direct 0.4 mg/dL (0.0-0.2); Bilirubin,Indirect 0.5 mg/dL (0.0-1.2); Bilirubin,Total 0.9 mg/dL (0.3-1.0); Globulin 2.6 g/dL (2.4-3.5); Total Protein 6.4 g/dL (6.4-8.9)
[2018-09-06 21:57] LABS: Calcium 8.8 mg/dL (8.6-10.3); Potassium 4.3 mEq/L (3.5-5.1)
[2018-09-06 22:00] LABS: Troponin I 0.56 ng/mL (< 0.04)
[2018-09-06] MEDS ORDERED: Aspirin 325 MG TABLET PO ONE (22:01)
[2018-09-06] MEDS ORDERED: Furosemide 40 MG/4 ML VIAL IVP ONE (22:12)
--- NOTE | 2018-09-06 22:48 | Emergency Department Note ---
Disposition Clinical Impression: Elevated troponin CHF (congestive heart failure) Qualifiers: Heart failure type: unspecified Heart failure chronicity: unspecified Qualified Code(s): I50.9 - Heart failure, unspecified Anemia Qualifiers: Anemia type: unspecified type Qualified Code(s): D64.9 - Anemia, unspecified Disposition: Admitted As Inpatient Condition: Good Forms: ED Satisfaction Letter Time of Disposition: 22:48 General Adult HPI - General Chief complaint: ED Shortness of Breath/Dyspnea Stated complaint: Marlo Time Seen by Provider: 09/06/18 21:12 Source: patient, EMS Mode of arrival: EMS Limitations: no limitations - History of Present Illness Pain Scale: 0 - Related Data Home Medications Medication Instructions Recorded Confirmed Allopurinol [Zyloprim] 200 mg PO DAILY 09/10/15 09/06/18 Aspirin Enteric Coated [Aspirin EC] 81 mg PO DAILY 09/10/15 09/06/18 Clopidogrel [Plavix] 75 mg PO QPM 09/10/15 09/06/18 Finasteride [Proscar] 5 mg PO QPM 09/10/15 09/06/18 Fluticasone Propionate Nasal 100 mcg NS DAILY 06/13/17 09/06/18 [Flonase] Furosemide [Lasix] 20 mg PO TID 06/13/17 09/06/18 Oxygen 3 l NS AD 06/13/17 09/06/18 LORazepam [Ativan] 0.5 mg PO HS PRN 07/05/17 09/06/18 Acetaminophen [Tylenol] 650 mg PO Q6H PRN 01/04/18 09/06/18 Lidocaine/Prilocaine CREAM [Emla] 1 appl TP AD 01/04/18 09/06/18 Metoprolol XL (24 HR) Succ [Toprol 12.5 mg PO DAILY PRN 01/04/18 09/06/18 Xl] Renal Vitamin [Renal Caps Softgel] 1 mg PO DAILY 01/04/18 09/06/18 Sevelamer [Renvela] 800 mg PO TIDWM 01/04/18 09/06/18 Omeprazole [PriLOSEC] 20 mg PO DAILY 09/06/18 09/06/18 Previous Rx's Medication Instructions Recorded Tamsulosin [Flomax] 0.4 mg PO QAM capsule 01/22/17 Escitalopram [Lexapro] 10 mg PO DAILY tab 07/07/17 Isosorbide MONOnitrate (24 HR) 30 mg PO DAILY 07/07/17 [Imdur] Simvastatin [Zocor] 40 mg PO QPM tab 07/07/17 Allergies Allergy/AdvReac Type Severity Reaction Status Date / Time No Known Allergies Allergy Verified 09/06/18 21:16 Constitutional: Reports: weight change (20 lb weight loss from dialysis over 3 days ). Denies: fever, chills, weakness Eyes: Denies: eye pain ENT ED: Denies: ear pain Cardiovascular: Reports: dyspnea on exertion, edema. Denies: chest pain, palpitations, syncope, paroxysmal nocturnal dyspnea Respiratory: Reports: cough. Denies: dyspnea, wheezes, hemoptysis, stridor Gastrointestinal: Denies: abdominal pain, nausea, vomiting, diarrhea Genitourinary: Denies: urgency, dysuria, frequency, hematuria Musculoskeletal: Denies: back pain, neck pain, joint swelling Integumentary: Denies: rash, abrasion, lesions Neurological: Reports: weakness. Denies: headache, numbness, paresthesias Psychiatric: Denies: anxiety, depression, suicidal thoughts Endocrine: Reports: fatigue. Denies: heat or cold intolerance, polydipsia Hematological/Lymphatic: Denies: easy bleeding, easy bruising Allergic/Immunologic: Denies: facial swelling, urticaria Past Medical History - Past Medical History Medical history: Reports: arthritis, atrial fibrillation, cardiomyopathy, CHF, coronary artery disease, GERD, hyperlipidemia, hypertension, myocardial infarction, renal disease, other Surgical history: Reports: angioplasty/stent, cataract, knee replacement, orthopedic, other, pacemaker/AICD, other Psychiatric history: Reports: anxiety - Social History Smoking Status: Never smoker Smokeless Tobacco Status: No Alcohol use: Reports: none Drug use: Reports: none Physical Exam - General Limitations: no limitations General appearance: alert, lethargic - Head Head exam: atraumatic, normocephalic, normal inspection - Eye Eye exam: Present: normal appearance, PERRL, EOMI - Expanded Eye Exam Pupils: Bilateral: reactive - ENT ENT exam: normal exam, normal oropharynx, mucous membranes moist - Expanded ENT Exam External ear exam: Present: normal external inspection Mouth exam: Present: normal external inspection Teeth exam: Present: normal inspection Throat exam: Present: normal inspection - Neck Neck exam: Present: normal inspection, full ROM, trachea midline - Chest Chest inspection: Present: normal inspection, symmetric chest wall rise - Respiratory Respiratory exam: Present: normal lung sounds bilaterally, other (bilateral crackles) - Cardiovascular Cardiovascular exam: Present: regular rate, normal rhythm, normal heart sounds - Abdominal Exam Abdominal exam: Present: soft, Non-Tender. Absent: tenderness, distention, guarding, rebound, rigidity - Extremities Exam Extremities exam: Present: normal inspection, full ROM. Absent: tenderness, pedal edema - Expanded Upper Extremity Exam Shoulder exam: Present: normal inspection, full ROM Arm exam: Present: normal inspection, full ROM Elbow exam: Present: normal inspection, full ROM Forearm/Wrist exam: Present: normal inspection, full ROM Hand exam: Present: normal inspection, full ROM Vascular exam: Normal: capillary refill, radial pulse - Expanded Lower Extremity Exam Hip/Pelvis exam: Present: normal inspection, full ROM Upper leg exam: Present: normal inspection, full ROM Knee exam: Present: normal inspection, full ROM Lower leg exam: Present: normal inspection, full ROM Ankle exam: Present: normal inspection, full ROM Foot/toe exam: Present: normal inspection, full ROM Neurovascular/Tendon exam: Absent: motor deficit, sensory deficit, tendon deficit - Back Exam Back exam: Present: normal inspection, full ROM. Absent: tenderness - Neurological Exam Neurological exam: Present: alert, oriented X3 - Expanded Neurological Exam Patient oriented to: Present: person, place, time Coma Scale Eye Opening: Spontaneous Coma Scale Motor Response: Obeys Commands Coma Scale Verbal Response: Oriented Coma Scale Total: 15 - Psychiatric Psychiatric exam: Present: normal affect, normal mood - Skin Skin exam: Present: warm, dry, intact, normal color Course Course Narrative: we will do cardiopulmoary workup and then admit to medicine - Consultations Consultation #1: discussed case with Dr. Simms and he accepts patinet to his service Time: 22:47 Vital Signs Temperature 98.0 F 09/06/18 21:20 Pulse Rate 100 09/06/18 21:20 Respiratory Rate 22 09/06/18 21:20 Blood Pressure 94/67 09/06/18 21:20 O2 Sat by Pulse Oximetry 100 09/06/18 21:20 Temperature 98.0 F 09/06/18 21:20 Pulse Rate 100 09/06/18 21:20 Respiratory Rate 18 09/06/18 21:47 Blood Pressure 94/67 09/06/18 21:47 O2 Sat by Pulse Oximetry 100 09/06/18 21:47 Oxygen Delivery Oxygen Delivery Nasal Cannula Medical Decision Making - Lab Data Result diagrams: 09/06/18 21:25 09/06/18 21:25 Lab Results 09/06/18 09/06/18 09/06/18 Range/Units 21:25 21:25 21:25 WBC (4.3-11.1) K/mcL RBC (4.19-5.50) M/mcL Hgb (12.9-16.9) g/dL Hct (37.5-50.1) % MCV (83.0-100.0) fL MCH (28.0-33.3) pg MCHC (31.6-35.5) g/dL RDW (11.5-14.5) % Plt Count (140-400) K/mcL MPV (9.4-12.4) fL Immature Gran % (0-4) % Seg Neutrophils % % Lymphocytes % % Monocytes % % Eosinophils % % Basophils % % Neutrophils # (1.6-8.9) K/mcL Lymphocytes # (0.6-4.6) K/mcL Monocytes # (0.0-1.3) K/mcL Eosinophils # (0.0-0.6) K/mcL Basophils # (0.0-0.2) K/mcL PT 14.7 H (9.4-12.1) Seconds INR 1.3 APTT 35.8 (26.0-36.0) Seconds Sodium (136-145) mEq/L Potassium (3.5-5.1) mEq/L Chloride (98-107) mEq/L Carbon Dioxide (23-29) mEq/L BUN (8-23) mg/dL Creatinine (0.70-1.30) mg/dL Est GFR ( Amer) (> 60) Est GFR (Non-Af Amer) (> 60) BUN/Creatinine Ratio (6-26) Glucose (70-105) mg/dL Calculated Osmolality (280-300) Calcium (8.6-10.3) mg/dL Total Bilirubin 0.9 (0.3-1.0) mg/dL Direct Bilirubin 0.4 H (0.0-0.2) mg/dL Indirect Bilirubin 0.5 (0.0-1.2) mg/dL AST 22 (13-39) Units/L ALT 13 (7-52) Units/L Alkaline Phosphatase 116 H (34-104) Units/L Troponin I (< 0.04) ng/mL B-Natriuretic Peptide 2809 H (Less than 100) pg/mL Serum Total Protein 6.4 (6.4-8.9) g/dL Albumin 3.8 (3.5-5.7) g/dL Globulin 2.6 (2.4-3.5) g/dL Albumin/Globulin Ratio 1.5 (1.1-2.2) Lipase 64 (11-82) Units/L 09/06/18 09/06/18 Range/Units 21:25 21:25 WBC 7.6 (4.3-11.1) K/mcL RBC 2.13 L (4.19-5.50) M/mcL Hgb 7.3 L (12.9-16.9) g/dL Hct 22.5 L (37.5-50.1) % MCV 105.6 H (83.0-100.0) fL MCH 34.3 H (28.0-33.3) pg MCHC 32.4 (31.6-35.5) g/dL RDW 15.0 H (11.5-14.5) % Plt Count 196 (140-400) K/mcL MPV 10.5 (9.4-12.4) fL Immature Gran % 0.5 (0-4) % Seg Neutrophils % 70.7 % Lymphocytes % 12.7 % Monocytes % 14.0 % Eosinophils % 1.6 % Basophils % 0.5 % Neutrophils # 5.4 (1.6-8.9) K/mcL Lymphocytes # 1.0 (0.6-4.6) K/mcL Monocytes # 1.1 (0.0-1.3) K/mcL Eosinophils # 0.1 (0.0-0.6) K/mcL Basophils # 0.0 (0.0-0.2) K/mcL PT (9.4-12.1) Seconds INR APTT (26.0-36.0) Seconds Sodium 132 L (136-145) mEq/L Potassium 4.3 (3.5-5.1) mEq/L Chloride 97 L (98-107) mEq/L Carbon Dioxide 21 L (23-29) mEq/L BUN 59 H (8-23) mg/dL Creatinine 3.42 H (0.70-1.30) mg/dL Est GFR ( Amer) 21 L (> 60) Est GFR (Non-Af Amer) 17 L (> 60) BUN/Creatinine Ratio 17 (6-26) Glucose 198 H (70-105) mg/dL Calculated Osmolality 296 (280-300) Calcium 8.8 (8.6-10.3) mg/dL Total Bilirubin (0.3-1.0) mg/dL Direct Bilirubin (0.0-0.2) mg/dL Indirect Bilirubin (0.0-1.2) mg/dL AST (13-39) Units/L ALT (7-52) Units/L Alkaline Phosphatase (34-104) Units/L Troponin I 0.56 H* (< 0.04) ng/mL B-Natriuretic Peptide (Less than 100) pg/mL Serum Total Protein (6.4-8.9) g/dL Albumin (3.5-5.7) g/dL Globulin (2.4-3.5) g/dL Albumin/Globulin Ratio (1.1-2.2) Lipase (11-82) Units/L Attestation Statement - Attestation Attestation: The history, physical exam, and medical decision making was performed by the medical student either while I was physically present and actively involved or I personally re-performed the exam and medical decision making. I have verified the accuracy of the medical student's documentation with regards to the history, physical exam findings, and medical decision making. 82 year old male presents to the ED with complaints of MARLO and crackles in his lung and hasneded 20L of fluid pulled off of him most recently. Patient will carolin need to be admitted for his elevate troponin and CH excerbation and anemia od 7.9
[2018-09-06] MEDS ORDERED: Metoprolol XL (24 HR) Succ 25 MG TAB.ER.24H PO PRN (23:37)
[2018-09-06] MEDS ORDERED: Acetaminophen 325 MG TABLET PO PRN (23:37)
[2018-09-06] MEDS ORDERED: 0.9 % Sodium Chloride 250 ML ONE (23:44)
[2018-09-06] MEDS ORDERED: Saline Nasal Spray 44 ML BOTTLE NS PRN (23:50)
[2018-09-07] MEDS ORDERED: Naloxone 0.4 MG/ML INJ IVP PRN (00:06)
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
[2018-09-07] MEDS ORDERED: Furosemide 20 MG/2 ML VIAL IVP ONE (00:47)
[2018-09-07] MEDS ORDERED: Ipratropium/Albuterol Neb 3 ML IH PRN (01:06)
[2018-09-07 03:39] LABS: Basophils % 0.1 %; Eosinophils % 0.1 %; Hematocrit 25.3 % (37.5-50.1); Hemoglobin 8.4 g/dL (12.9-16.9); Immature Granulocytes % 0.6 % (0-4); Lymphocytes # 0.3 K/mcL (0.6-4.6); Mean Corpuscular HGB Conc 33.2 g/dL (31.6-35.5); Mean Corpuscular Volume 102.4 fL (83.0-100.0); Mean Platelet Volume 10.5 fL (9.4-12.4); Monocytes # 0.1 K/mcL (0.0-1.3); Monocytes % 1.8 %; Neutrophils # 6.3 K/mcL (1.6-8.9); Platelet Count 180 K/mcL (140-400); Red Blood Count 2.47 M/mcL (4.19-5.50); Red Cell Distribution Width 14.9 % (11.5-14.5); Segmented Neutrophils % 92.4 %
[2018-09-07 03:59] LABS: Calcium 9.1 mg/dL (8.6-10.3); Phosphorous 4.6 mg/dL (2.7-4.5); Potassium 4.4 mEq/L (3.5-5.1)
[2018-09-07] MEDS ORDERED: Aspirin Enteric Coated 81 MG Tablet PO SCH (09:00)
[2018-09-07] MEDS ORDERED: Isosorbide MONOnitrate (24 HR) 30 MG TAB.ER.24H PO SCH (09:00)
[2018-09-07] MEDS ORDERED: Renal Vitamin 1 CAP CAPSULE PO SCH (09:00)
[2018-09-07] MEDS: Furosemide 20 MG TABLET PO SCH ×2 (09:31→15:48)
--- NOTE | 2018-09-07 12:57 | Discharge Summary ---
<Walter Gonzales - Last Filed: 09/07/18 15:59> - NOTES TO OUTPATIENT PROVIDER Notes to Outpatient Provider: Nephro recommended possible GI workup for anemia and eval of folate and B12 def. Close monitoring of fluid status. Orders not resulted at time of discharge: Pending orders 09/06/18 23:33 Stool guiac [Occult Blood,Stool] [BF] Routine Date of Encounter: 09/07/18 Time of Encounter: 09:45 - Discharge Diagnosis (1) Dyspnea Priority: Primary Status: Resolved Qualifiers: Dyspnea type: unspecified Qualified Code(s): R06.00 - Dyspnea, unspecified (2) Elevated troponin Priority: Secondary Status: Acute (3) BPH (benign prostatic hypertrophy) with urinary retention Priority: Secondary Status: Chronic (4) Cardiomyopathy, ischemic Priority: Secondary Status: Chronic (5) ESRD (end stage renal disease) on dialysis Priority: Secondary Status: Chronic (6) History of CHF (congestive heart failure) Priority: Secondary Status: Chronic (7) History of COPD Priority: Secondary Status: Chronic (8) HLD (hyperlipidemia) Priority: Secondary Status: Chronic Qualifiers: Hyperlipidemia type: mixed hyperlipidemia Qualified Code(s): E78.2 - Mixed hyperlipidemia (9) HTN (hypertension) Priority: Secondary Status: Chronic Qualifiers: Hypertension type: essential hypertension Qualified Code(s): I10 - Essential (primary) hypertension (10) Presence of combination internal cardiac defibrillator (ICD) and pacemaker Priority: Secondary Status: Chronic Hospital course: Mr. Amaro is a 82 year old male with past medical history of atrial fibrillation, cardiomyopathy, CHF, ESRD on dialysis MWF, COPD, CAD who presented to [facility] complaining of shortness of breath and weakness. He notes recent fluid overload requiring consective dialysis Tuesday, Tuesday, and Tuesday; after leaving dialysis Tuesday he states he felt weak and short of breath He tried to go home and rest, but continue to be weak and short of breath, EMS called and transported patient to [facility] ED. Patient found to be anemic with Hgb of 7.3, symptomatic he improved with 1 unit pRBC (received 2 units total). He also received dose of steroids and lasix. CXR suggestive of pulm fibrosis and possible overlying edema.When examined this morning patient sitting on bedside, feeling back to baseline, able to walk around room without any distress. Echo completed to evaluate possible CHF exacerbation, EF 25% with is stable from echo in December 2016 with EF of 20%. Patient euvolemic on exam. Patient seen by Nephrology, in agreement that dyspnea and weakness appear to be secondary to anemia. Aranesp given while inpatient. No signs of acute bleed, patient having appropriate response to blood transfusion. Nephrology recommended further work for anemia as outpatient. Patient hemodynamically stable and feels comfortable with discharge home at this time. Recommend close follow up with PCP upon discharge. Discharge discussed with: patient - Time Spent with Patient Total time spent providing and/or coordinating discharge services: Less than 30 minutes - Discharge Medications Home Medications: Allopurinol [Zyloprim] 200 mg PO DAILY 09/10/15 [History] Aspirin Enteric Coated [Aspirin EC] 81 mg PO DAILY 09/10/15 [History] Clopidogrel [Plavix] 75 mg PO QPM 09/10/15 [History] Finasteride [Proscar] 5 mg PO QPM 09/10/15 [History] Tamsulosin [Flomax] 0.4 mg PO QAM capsule 01/22/17 [Rx] Fluticasone Propionate Nasal [Flonase] 100 mcg NS DAILY 06/13/17 [History] Furosemide [Lasix] 20 mg PO TID 06/13/17 [History] Oxygen 3 l NS AD 06/13/17 [History] LORazepam [Ativan] 0.5 mg PO HS PRN 07/05/17 [History] Escitalopram [Lexapro] 10 mg PO DAILY tab 07/07/17 [Rx] Isosorbide MONOnitrate (24 HR) [Imdur] 30 mg PO DAILY 07/07/17 [Rx] Simvastatin [Zocor] 40 mg PO QPM tab 07/07/17 [Rx] Acetaminophen [Tylenol] 650 mg PO Q6H PRN 01/04/18 [History] Lidocaine/Prilocaine CREAM [Emla] 1 appl TP AD 01/04/18 [History] Metoprolol XL (24 HR) Succ [Toprol Xl] 12.5 mg PO DAILY PRN 01/04/18 [History] Renal Vitamin [Renal Caps Softgel] 1 mg PO DAILY 01/04/18 [History] Sevelamer [Renvela] 800 mg PO TIDWM 01/04/18 [History] Omeprazole [PriLOSEC] 20 mg PO DAILY 09/06/18 [History] Allergies/Adverse Reactions: Allergy/AdvReac Type Severity Reaction Status Date / Time No Known Allergies Allergy Verified 09/06/18 21:16 Date of admission: 09/06/18 23:03 Primary care physician: Rena Christianson CNP Consults: 09/07/18 00:27 Consult to Nephrology [CONS] Routine Consulting Provider: Kidney Converse/GERTRUDE/MYESHA/MERLIN Reason for Consult: ESRD on HD MWF Call Completed: No Discharging clinician: Mary Parsons Anticipated date of discharge: 09/07/18 - Constitutional Vitals: Temp Pulse Resp BP Pulse Ox 97.6 F 84 18 88/63 96 09/07/18 12:49 09/07/18 12:49 09/07/18 12:49 09/07/18 12:49 09/07/18 12:49 General appearance: Present: A&O X 3, pleasant, no acute distress, answers questions appropriately Exam: . - Head Head exam: Present: atraumatic, normocephalic - Eye Eye exam: Present: PERRL, conjuntiva pink, sclera anicteric Pupils: Present: PERRL - Neck Neck exam general surgery: Present: supple, trachea midline. Absent: lymphadenopathy - Respiratory Respiratory exam: Present: CTAB. Absent: accessory muscle use, rales, rhonchi, wheezes - Cardiovascular Cardiovascular exam: Present: tachycardia. Absent: diastolic murmur, gallop, rubs, systolic murmur - GI/Abdominal GI/Abdominal exam: Present: normal bowel sounds, soft, no peritoneal signs. Absent: distended, tenderness - Extremities Exam Extremities exam: Present: warm. Absent: calf tenderness, cyanotic, pedal edema - Neurological Exam Neurological exam: Present: alert, oriented X3, no focal deficits. Absent: speech deficit - Psychiatric Psychiatric exam: Present: normal affect, normal mood - Skin Skin exam: Present: dry, intact - Patient Status Disposition: Home, Self-Care Condition: Good Functional capacity at discharge: independent ambulation Overall status at discharge: patient is back to baseline - Discharge Instructions Follow Up With: Rena Christianson CNP [Primary Care Provider] - Additional Instructions: Please follow up with your primary care provider in the next few days. Return or seek medical care if you develop new or worsening symptoms neelima as chest pain, shortness of breath, weakness, or confusion. - Diet and Activity Activity: increase activity as tolerated Diet: advance to your usual diet <Mary Parsons - Last Filed: 09/07/18 18:08> Orders not resulted at time of discharge: Pending orders 09/06/18 23:33 Stool guiac [Occult Blood,Stool] [BF] Routine Date of Encounter: 09/07/18 Hospital course: Mr. Amaro is a 82 year old male - Time Spent with Patient Total time spent providing and/or coordinating discharge services: Date of admission: 09/06/18 22:54 Primary care physician: Rena Christianson CNP Consults: 09/07/18 00:27 Consult to Nephrology [CONS] Routine Consulting Provider: Kidney Tonia/GERTRUDE/MYESHA/MERLIN Reason for Consult: ESRD on HD MWF Call Completed: No - Constitutional Vitals: Temp Pulse Resp BP Pulse Ox 97.5 F L 93 18 97/72 98 09/07/18 15:55 09/07/18 15:55 09/07/18 15:55 09/07/18 15:55 09/07/18 15:55 - Attending Attestation I have seen and independently assessed this patient and agree with discharge summary per resident Gen - Awake, alert, oriented x 3, no acute distress HEENT - NCAT, PERRLA, EOMI, hearing grossly intact, oropharynx benign CV - RRR, normal S1 and S2, no M/R/G, no BLE edema Resp - Normal WOB, CTAB, no W/R/R GI - Soft, NT/ND, no masses, normal bowel sounds, Skin - Warm, dry, no rashes/lesions/ulcers Psych - Normal mood and affect, no depression or anxiety Plan Shortness of breath likely secondary to symptomatic anemia from chronic blood loss with ESRD and possible chronic GI bleed. Improved with transfusion of PRBC. Stable for discharge. Outpatient follow up with GI and renal ESRD. S/p dialysis. Stable
--- NOTE | 2018-09-07 14:53 | Nephrology Consult Note ---
Date of Encounter: 09/07/18 Time of Encounter: 14:47 Assessment and Plan (1) Anemia Current Visit: Yes Status: Chronic Anemia in setting of ESRD receiving epo during dialysis. The anemia is likely the etiology of his acute dyspnea since his hemoglobin was lower than baseline and the dyspnea has resolved since receiving 1 unit PRBC. -hemoglobin 8.4, yesterday 7.3 (baseline hemoglobin 9 to 10) -macroctyic MCV 102.4 -no obvious active bleeding -patient denies melena or hematochezia Plan: -patient has received 1 unit of packed red blood cells thus far and another 1 unit PRBC is ordered. Patient may be discharged once he has received the blood transfusion. -patient should have a G.I. workup outpatient -he is currently receiving IV iron -will order for one time dose aranesp -may need workup outpatient for folic acid or vitamin B12 deficiency Qualifiers: Anemia type: unspecified type Qualified Code(s): D64.9 - Anemia, unspecified (2) Dyspnea Current Visit: No Status: Resolved Dyspnea likely secondary to anemia. Patient has had resolved shortness of breath once receiving the blood transfusion. No obvious source of infection. -hemoglobin 8.4, yesterday 7.3 (baseline hemoglobin 9 to 10) -Chest x-ray demonstrating pulmonary fibrosis and mild interstitial edema with trace pleural fluid. -Lung examination was clear to auscultation bilaterally. No wheezing or rales. -Plan as above Qualifiers: Dyspnea type: unspecified Qualified Code(s): R06.00 - Dyspnea, unspecified (3) ESRD (end stage renal disease) on dialysis Current Visit: No Status: Chronic Known history of ESRD on dialysis Tuesday, Tuesday, Tuesday and following in the [facility]. -Not volume overloaded. History of Present Illness - Reason for Consult Consult date: 09/07/18 end stage renal disease Requesting physician: Lachelle Abel - Chief Complaint Shortness of breath - History of Present Illness Mr. Amaro is a 82 year old male with past medical history of atrial fibrillation, cardiomyopathy, CHF, ESRD on dialysis MWF, COPD, CAD who presented to [facility] complaining of shortness of breath. Nephrology was consulted due to the patient having end-stage renal disease on the dialysis. The patient reported that yesterday after dialysis he was at home going up the stairs and he felt acutely short of breath and cannot catch his breath. The patient had not missed any of his dialysis sessions. He follows with nephrology at the [facility]. He denied fever, chills, chest pain, nausea, vomiting, melena, hematochezia. Past Med Surg Social Fam HX - Past Medical History Attestation: Yes The following information was validated with the patient. Source: patient Medical history: arthritis, atrial fibrillation, cardiomyopathy, CHF, coronary artery disease, GERD, hyperlipidemia, hypertension, myocardial infarction, renal disease, other Additional medical history: gout Psychiatric history: anxiety - Past Surgical History Surgical History: angioplasty/stent, cataract, knee replacement, orthopedic, other, pacemaker/AICD, other Additional surgical history: rotator cuff tears, grafts down leg from [employer] - Social History Smoking Status: Never smoker Smokeless Tobacco Status: No Alcohol use: none Drug use: none - Family History Brother Family Member Ethnicity: Non- Living Status: Still Living Sister Family Member Ethnicity: Non- Living Status: Still Living Hx Family Cardiac Disorders: Yes (VA, HD) Hx Family Endocrine Disorder: Yes (DM) Mother Family Member Ethnicity: Non- Living Status: Hx Family Cardiac Disorders: Yes (HD) Hx Family Respiratory Disorders: No Hx Family Cancer: No Hx Family GI Disorders: No Hx Family Endocrine Disorder: Yes (DM) Hx Family Neuromuscular Disorders: No Hx Family Neurologic Disorders: No Hx Family HEENT Disorders: No Hx Family Autoimmune Disorders: No Father Family Member Ethnicity: Non- Living Status: Hx Family Cardiac Disorders: Yes Hx Family Neurologic Disorders: Yes (Alzheimer's disease) Medications and Allergies Allopurinol [Zyloprim] 200 mg PO DAILY 09/10/15 [History] Aspirin Enteric Coated [Aspirin EC] 81 mg PO DAILY 09/10/15 [History] Clopidogrel [Plavix] 75 mg PO QPM 09/10/15 [History] Finasteride [Proscar] 5 mg PO QPM 09/10/15 [History] Tamsulosin [Flomax] 0.4 mg PO QAM capsule 01/22/17 [Rx] Fluticasone Propionate Nasal [Flonase] 100 mcg NS DAILY 06/13/17 [History] Furosemide [Lasix] 20 mg PO TID 06/13/17 [History] Oxygen 3 l NS AD 06/13/17 [History] LORazepam [Ativan] 0.5 mg PO HS PRN 07/05/17 [History] Escitalopram [Lexapro] 10 mg PO DAILY tab 07/07/17 [Rx] Isosorbide MONOnitrate (24 HR) [Imdur] 30 mg PO DAILY 07/07/17 [Rx] Simvastatin [Zocor] 40 mg PO QPM tab 07/07/17 [Rx] Acetaminophen [Tylenol] 650 mg PO Q6H PRN 01/04/18 [History] Lidocaine/Prilocaine CREAM [Emla] 1 appl TP AD 01/04/18 [History] Metoprolol XL (24 HR) Succ [Toprol Xl] 12.5 mg PO DAILY PRN 01/04/18 [History] Renal Vitamin [Renal Caps Softgel] 1 mg PO DAILY 01/04/18 [History] Sevelamer [Renvela] 800 mg PO TIDWM 01/04/18 [History] Omeprazole [PriLOSEC] 20 mg PO DAILY 09/06/18 [History] Allergy/AdvReac Type Severity Reaction Status Date / Time No Known Allergies Allergy Verified 09/06/18 21:16 Review of Systems Constitutional: weakness, no chills, no fever(s), no frequent falls, no headache(s) Nose, mouth and throat: no headache(s) Cardiovascular: dyspnea on exertion, no chest pain, no edema, no palpitations Respiratory: dyspnea, no cough, no wheezing Gastrointestinal: no cramping, no diarrhea, no melena, no nausea, no vomiting Integumentary: no new lesions, no sores Neurological: no dizziness, no headache(s) Hematologic/Lymphatic: no easy bleeding Exam - Vital Signs Vital signs: Initial Vital Signs Temp Pulse Resp BP Pulse Ox 98.0 F 100 22 94/67 100 09/06/18 21:20 09/06/18 21:20 09/06/18 21:20 09/06/18 21:20 09/06/18 21:20 Vital Signs - Last 8 Hours Temp Pulse Resp BP Pulse Ox 09/07/18 13:04 97.6 F 93 18 97/72 96 09/07/18 12:49 97.6 F 84 18 88/63 96 09/07/18 12:00 87 18 91/59 99 09/07/18 08:00 97.8 F 105 22 109/63 100 09/07/18 07:00 97.8 F Intake and Output 09/06/18 09/07/18 09/07/18 23:59 07:59 15:59 Intake Total 0 / 0 324 / 324 240 / 240 Output Total 250 / 250 Balance 0 / 0 74 / 74 240 / 240 Intake: Oral 240 / 240 Blood Product 0 / 0 324 / 324 0 / 0 Rbcs Leuko Poor As-1 Unit 0 / 0 [id number] Rbcs Leuko Poor As-1 Unit 0 / 0 324 / 324 [id number] Output: Urine 100 / 100 Catheter 150 / 150 Other: Meal Breakfast Percent of Meal Consumed 100% Weight 73.119 kg 66.4 kg Patient Weight 09/07/18 23:59 Weight 66.4 kg - General Appearance Exam: Gen.: Vitals noted. No acute distress. AAOx3 HEENT: oropharynx clear, Normocephalic, atraumatic Neck: Supple. No adenopathy. Cardiac: RRR, no murmur, +S1/S2 Pulmonary: CTA bilaterally, no wheezes, rales or rhonchi, equal chest expansion Abdomen: soft, nontender, Bowel sounds noted, no guarding MSK: ROM intact, no joint swelling noted Extremities: no BLE edema, nontender calf, no cyanosis or clubbing Neuro: A&Ox3, moves all extremities, no focal deficits Psych: Appropriate mood and behavior Results - Lab Results 09/07/18 03:23 09/07/18 03:23 Most recent lab results Calcium 9.1 mg/dL (8.6-10.3) 09/07/18 03:23 Phosphorus 4.6 mg/dL (2.7-4.5) H 09/07/18 03:23 Magnesium 1.9 mg/dL (1.6-2.6) 09/07/18 03:23 Consult Discharge Plan - Plan Referrals: Rena Christianson, [facility] [Primary Care Provider] -
[2018-09-07] MEDS ORDERED: Darbepoetin 100 MCG/0.5 ML SYRINGE SQ SCH (15:00)
[2018-09-07 15:55] VITALS: BP 97/72
[2018-09-07] MEDS ORDERED: Finasteride 5 MG TABLET PO SCH (18:00)
--- NOTE | 2018-09-08 16:51 | Electrocardiograph Report ---
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
== END 2018-09-07 16:50 | disposition home or self-care (01) ==
LOC: EMEROOARM 21:10 → ICNU 21:10
PROVIDERS: ADMIT Internal Medicine; ATTEND Internal Medicine

== ENCOUNTER 2019-05-15 11:55 | Observation (INO) ==
[2019-05-15] MEDS ORDERED: Pantoprazole 40 MG VIAL IVP ONE (12:23)
[2019-05-15] MEDS ORDERED: 0.9 % Sodium Chloride 1,000 ML IVC ONE (12:23)
[2019-05-15 13:09] LABS: Eosinophils # 0.2 K/mcL (0.0-0.6); Hematocrit 22.5 % (37.5-50.1); Mean Corpuscular HGB Conc 31.1 g/dL (31.6-35.5); Mean Corpuscular Volume 112.5 fL (83.0-100.0); Mean Platelet Volume 10.3 fL (9.4-12.4); Platelet Count 232 K/mcL (140-400); Red Cell Distribution Width 17.5 % (11.5-14.5); White Blood Count 8.6 K/mcL (4.3-11.1)
[2019-05-15 13:27] LABS: Calcium 9.2 mg/dL (8.6-10.3); Potassium 4.7 mEq/L (3.5-5.1)
[2019-05-15] MEDS ORDERED: 0.9 % Sodium Chloride 250 ML ONE ×2 (13:49→14:25)
[2019-05-15 15:04] LABS: Anisocytosis 1+ (Not Present); Macrocytosis Present (Not Present); Monocytes # 0.9 K/mcL (0.0-1.3); Neutrophils # 6.5 K/mcL (1.6-8.9)
[2019-05-15 15:05] LABS: Platelet Estimate Normal (Normal); Poikilocytosis 1+ (Not Present)
[2019-05-15] MEDS ORDERED: Naloxone 0.4 MG/ML INJ IVP PRN (15:05)
[2019-05-15] MEDS ORDERED: Fluticasone Propionate Nasal 50 MCG/SPRAY BOTTLE NS PRN (16:20)
[2019-05-15] MEDS ORDERED: Albuterol Neb 0.63 MG/3 ML VIAL IH PRN (16:20)
[2019-05-15] MEDS ORDERED: Furosemide 40 MG TABLET PO SCH ×2 (16:30→17:00)
[2019-05-15] MEDS ORDERED: Finasteride 5 MG TABLET PO SCH (18:00)
[2019-05-15] MEDS ORDERED: Renal Vitamin 1 CAP CAPSULE PO SCH (18:00)
[2019-05-15] MEDS ORDERED: Furosemide 40 MG/4 ML VIAL IVP ONE (18:52)
[2019-05-15 18:57] LABS: Hepatitis B Surface Antigen Nonreactive (Nonreactive)
[2019-05-16 05:32] LABS: Basophils % 0.5 %; Eosinophils # 0.2 K/mcL (0.0-0.6); Eosinophils % 2.3 %; Hematocrit 24.8 % (37.5-50.1); Hemoglobin 7.7 g/dL (12.9-16.9); Immature Granulocytes % 0.5 % (0-4); Lymphocytes # 0.7 K/mcL (0.6-4.6); Mean Corpuscular Hemoglobin 33.3 pg (28.0-33.3); Mean Corpuscular Volume 107.4 fL (83.0-100.0); Mean Platelet Volume 10.6 fL (9.4-12.4); Monocytes % 11.9 %; Neutrophils # 6.1 K/mcL (1.6-8.9); Platelet Count 229 K/mcL (140-400); Red Blood Count 2.31 M/mcL (4.19-5.50); Red Cell Distribution Width 19.4 % (11.5-14.5); Segmented Neutrophils % 75.8 %; White Blood Count 8.1 K/mcL (4.3-11.1)
[2019-05-16 05:48] LABS: Calcium 9.3 mg/dL (8.6-10.3); Magnesium 2.5 mg/dL (1.6-2.6); Phosphorous 5.9 mg/dL (2.7-4.5)
[2019-05-16] MEDS ORDERED: 0.9 % Sodium Chloride 250 ML IVC PRN (07:40)
[2019-05-16] MEDS ORDERED: 0.9 % Sodium Chloride 1,000 ML PRIME SCH (07:45)
[2019-05-16] MEDS ORDERED: Albumin 25% 25gram/100mL 25 GM/100 ML IV.SOLN IVPB PRN (08:58)
[2019-05-16] MEDS ORDERED: Albumin 25% 25gram/100mL 25 GM/100 ML IV.SOLN IVPB ONE (09:00)
[2019-05-16] MEDS ORDERED: Renal Vitamin 1 CAP CAPSULE PO SCH (09:00)
[2019-05-16] MEDS ORDERED: Isosorbide MONOnitrate (24 HR) 30 MG TAB.ER.24H PO SCH (09:00)
[2019-05-16] MEDS ORDERED: Finasteride 5 MG TABLET PO SCH (09:00)
[2019-05-16] MEDS ORDERED: 0.9 % Sodium Chloride 1,000 ML ONE (09:06)
[2019-05-16] MEDS ORDERED: Albumin 25% 12.5gm/50mL 25.0 GM/100 ML IV.SOLN ONE (09:33)
[2019-05-16 13:47] VITALS: BP 94/58
[2019-05-17] MEDS ORDERED: Furosemide 40 MG TABLET PO SCH (08:00)
== END 2019-05-16 16:57 | disposition hospice, inpatient (51) ==
LOC: EMEROOARM 11:55 → INTOOBSV 16:42 → 2NNU 16:42 → SUATTDRO 16:42 → 2NNU 17:47
PROVIDERS: ADMIT Internal Medicine; ATTEND Internal Medicine

== ENCOUNTER 2019-05-21 12:44 | Observation (INO) ==
[2019-05-21] MEDS ORDERED: Pantoprazole 80 MG in 0.9 % Sodium Chloride 50 ML IVPB ONE (13:03)
[2019-05-21] MEDS ORDERED: 0.9 % Sodium Chloride 250 ML ONE (13:05)
[2019-05-21] MEDS ORDERED: 0.9 % Sodium Chloride 1,000 ML ONE (13:05)
[2019-05-21 13:14] LABS: Basophils % 0.2 %; Eosinophils # 0.2 K/mcL (0.0-0.6); Eosinophils % 2.2 %; Hematocrit 22.8 % (37.5-50.1); Hemoglobin 7.3 g/dL (12.9-16.9); Immature Granulocytes % 0.5 % (0-4); Lymphocytes # 0.5 K/mcL (0.6-4.6); Lymphocytes % 5.7 %; Mean Corpuscular Hemoglobin 35.1 pg (28.0-33.3); Mean Corpuscular Volume 109.6 fL (83.0-100.0); Monocytes # 1.3 K/mcL (0.0-1.3); Monocytes % 16.3 %; Neutrophils # 6.1 K/mcL (1.6-8.9); Platelet Count 230 K/mcL (140-400); Red Blood Count 2.08 M/mcL (4.19-5.50); Red Cell Distribution Width 17.8 % (11.5-14.5); Segmented Neutrophils % 75.1 %; White Blood Count 8.1 K/mcL (4.3-11.1)
[2019-05-21 13:28] LABS: INR 1.2; Prothrombin Time 13.1 Seconds (9.4-12.1)
[2019-05-21 13:31] LABS: Activated Partial Thrombo Time 35.1 Seconds (26.0-36.0)
[2019-05-21 13:41] LABS: Troponin I 0.05 ng/mL (< 0.04)
[2019-05-21 14:33] LABS: Albumin 3.8 g/dL (3.5-5.7); Albumin/Globulin Ratio 1.5 (1.1-2.2); Bilirubin,Total 0.9 mg/dL (0.3-1.0); Calcium 8.9 mg/dL (8.6-10.3); Globulin 2.5 g/dL (2.4-3.5); Potassium 3.4 mEq/L (3.5-5.1); Total Protein 6.3 g/dL (6.4-8.9)
--- NOTE | 2019-05-21 14:40 | Emergency Department Note ---
Disposition Clinical Impression: Melena, ESRD (end stage renal disease) on dialysis, Severe anemia Disposition: Admitted As Inpatient Condition: Fair Time of Disposition: 14:59 GI Bleed HPI - General Chief complaint: ED GI Bleed Stated complaint: low hgb Time Seen by Provider: 05/21/19 12:48 Source: patient Mode of arrival: ambulatory Limitations: no limitations Nursing Notes Reviewed: Yes Vital Signs Reviewed: Yes - History of Present Illness HPI Narrative: 83-year-old male presented to the emergency department low hemoglobin. Is a dialysis patient Tuesday. Said he was at dialysis today they notice a low hemoglobin so they recommended he come here. Patient has been weaker than normal not moving as much. A week ago he started having black stools and he was admitted here to the hospital for these melanic stools. They talked with him about possible colonoscopy or EGD was said he is not a candidate due to comorbidities including a low ejection fraction. They said that the melanic stools have since stopping he still is continuing to feel weak. He did receive 2 units of blood on his previous admission. This ended they came here really to possibly get a blood transfusion otherwise no other complaints. Patient otherwise has no other complaints this time he has no abdominal pain. He does not have history of cirrhosis. Or history of varices. - Related Data Home Medications Medication Instructions Recorded Confirmed Aspirin Enteric Coated [Aspirin EC] 81 mg PO DAILY 09/10/15 05/21/19 Fluticasone Propionate Nasal 100 mcg NS DAILY PRN 06/13/17 05/21/19 [Flonase] Lidocaine/Prilocaine CREAM [Emla] 1 appl TP AD 01/04/18 05/21/19 Renal Vitamin [Renal Caps Softgel] 1 mg PO QPM 01/04/18 05/21/19 Albuterol Neb [AccuNeb] 0.63 mg IH Q6H PRN 05/15/19 05/21/19 Allopurinol [Zyloprim 100 MG] 100 mg PO BID 05/15/19 05/21/19 Finasteride [Proscar] 5 mg PO QPM 05/15/19 05/21/19 Furosemide [Lasix] 40 mg PO AD 05/15/19 05/21/19 Tramadol HCl [Ultram] 50 mg PO QID PRN 05/15/19 05/21/19 Pantoprazole 40 mg PO DAILY 05/21/19 05/21/19 Sucralfate [Carafate] 1 tab PO TIDWM 05/21/19 05/21/19 Previous Rx's Medication Instructions Recorded Isosorbide MONOnitrate (24 HR) 30 mg PO DAILY 07/07/17 [Imdur] Simvastatin [Zocor] 40 mg PO QPM tab 07/07/17 Allergies Allergy/AdvReac Type Severity Reaction Status Date / Time No Known Allergies Allergy Verified 09/06/18 21:16 All systems ED: reviewed and negative except as stated. Review of Systems: As Per HPI Past Medical History - Past Medical History Attestation: Yes The following information was validated with the patient. Source: patient Medical history: Reports: atrial fibrillation, cardiomyopathy, CHF, coronary artery disease, GERD, hyperlipidemia, hypertension, myocardial infarction, renal disease, other Surgical history: Reports: angioplasty/stent, cataract, knee replacement, orthopedic, other, pacemaker/AICD, other Psychiatric history: Reports: anxiety - Social History Smoking Status: Never smoker Smokeless Tobacco Status: No Alcohol use: Reports: none Drug use: Reports: none Physical Exam - General Limitations: no limitations General appearance: alert - Head Head exam: atraumatic, normocephalic, normal inspection - Eye Eye exam: Present: normal appearance, PERRL, EOMI - ENT ENT exam: normal exam, normal oropharynx, mucous membranes moist - Neck Neck exam: Present: normal inspection, full ROM, trachea midline - Chest Chest inspection: Present: normal inspection, symmetric chest wall rise - Respiratory Respiratory exam: Present: normal lung sounds bilaterally - Cardiovascular Cardiovascular exam: Present: regular rate, normal rhythm, normal heart sounds - Abdominal Exam Abdominal exam: Present: soft, Non-Tender, normal bowel sounds. Absent: tenderness, distention, guarding, rebound, rigidity - Extremities Exam Extremities exam: Present: normal inspection, full ROM. Absent: tenderness, pedal edema - Back Exam Back exam: Present: normal inspection, full ROM. Absent: tenderness - Neurological Exam Neurological exam: Present: alert, oriented X3 - Skin Skin exam: Present: warm, dry, intact, normal color Course Vital Signs Temperature 97.8 F 05/21/19 12:52 Pulse Rate 94 05/21/19 12:52 Respiratory Rate 17 05/21/19 12:52 Blood Pressure 82/61 05/21/19 12:52 O2 Sat by Pulse Oximetry 98 05/21/19 12:52 Temperature 98.1 F 05/21/19 14:44 Pulse Rate 63 05/21/19 14:44 Respiratory Rate 15 05/21/19 14:44 Blood Pressure 76/56 05/21/19 14:44 O2 Sat by Pulse Oximetry 100 05/21/19 14:44 Oxygen Delivery Oxygen Delivery Nasal Cannula GI Bleed - [facility] Narrative Medical decision making narrative: Patient presents here with low hemoglobin. Current hemoglobin 7.3 actually up from 6.9. This is probably secondary to patient receiving dialysis. Patient was given 2 units of blood and there were ordered here in the emergency department. Patient has no longer had any melanic stools at this time. Family and patient both understand that he is not a candidate for either colonoscopy or upper endoscopy due to his cardiac decreased ejection fraction. He is a DNR CCA DNI per patient as he is alert and oriented able to answer all his questions. We will admit patient for blood transfusion. Was started on Protonix 1 dose here today. Patient has no history of cirrhosis no rebound SPP or varices at this time. Patient admitted to the hospitalist in stable condition I spoke with Dr. Lee who admitted patient - Medical Records Medical records reviewed: Yes I reviewed the patient's medical records. - Lab Data Lab results reviewed: Yes I reviewed the patient's lab results. Result diagrams: 05/21/19 13:01 05/21/19 13:01 Lab Results 05/21/19 05/21/19 05/21/19 Range/Units 13:01 13:01 13:01 WBC 8.1 (4.3-11.1) K/mcL RBC 2.08 L (4.19-5.50) M/mcL Hgb 7.3 L (12.9-16.9) g/dL Hct 22.8 L (37.5-50.1) % MCV 109.6 H (83.0-100.0) fL MCH 35.1 H (28.0-33.3) pg MCHC 32.0 (31.6-35.5) g/dL RDW 17.8 H (11.5-14.5) % Plt Count 230 (140-400) K/mcL MPV 10.0 (9.4-12.4) fL Immature Gran % 0.5 (0-4) % Seg Neutrophils % 75.1 % Lymphocytes % 5.7 % Monocytes % 16.3 % Eosinophils % 2.2 % Basophils % 0.2 % Neutrophils # 6.1 (1.6-8.9) K/mcL Lymphocytes # 0.5 L (0.6-4.6) K/mcL Monocytes # 1.3 (0.0-1.3) K/mcL Eosinophils # 0.2 (0.0-0.6) K/mcL Basophils # 0.0 (0.0-0.2) K/mcL PT 13.1 H (9.4-12.1) Seconds INR 1.2 APTT 35.1 (26.0-36.0) Seconds Sodium 136 (136-145) mEq/L Potassium 3.4 L (3.5-5.1) mEq/L Chloride 98 (98-107) mEq/L Carbon Dioxide 26 (23-29) mEq/L BUN 27 H (8-23) mg/dL Creatinine 3.39 H (0.70-1.30) mg/dL Est GFR ( Amer) 21 L (> 60) Est GFR (Non-Af Amer) 18 L (> 60) BUN/Creatinine Ratio 8 (6-26) Glucose 164 H (70-105) mg/dL Calculated Osmolality 291 (280-300) Lactic Acid (0.5-2.2) mmol/L Calcium 8.9 (8.6-10.3) mg/dL Total Bilirubin 0.9 (0.3-1.0) mg/dL AST 23 (13-39) Units/L ALT 16 (7-52) Units/L Alkaline Phosphatase 134 H (34-104) Units/L Troponin I 0.05 H* (< 0.04) ng/mL Serum Total Protein 6.3 L (6.4-8.9) g/dL Albumin 3.8 (3.5-5.7) g/dL Globulin 2.5 (2.4-3.5) g/dL Albumin/Globulin Ratio 1.5 (1.1-2.2) Lipase 39 (11-82) Units/L Blood Type Antibody Screen Crossmatch 05/21/19 05/21/19 Range/Units 13:01 13:23 WBC (4.3-11.1) K/mcL RBC (4.19-5.50) M/mcL Hgb (12.9-16.9) g/dL Hct (37.5-50.1) % MCV (83.0-100.0) fL MCH (28.0-33.3) pg MCHC (31.6-35.5) g/dL RDW (11.5-14.5) % Plt Count (140-400) K/mcL MPV (9.4-12.4) fL Immature Gran % (0-4) % Seg Neutrophils % % Lymphocytes % % Monocytes % % Eosinophils % % Basophils % % Neutrophils # (1.6-8.9) K/mcL Lymphocytes # (0.6-4.6) K/mcL Monocytes # (0.0-1.3) K/mcL Eosinophils # (0.0-0.6) K/mcL Basophils # (0.0-0.2) K/mcL PT (9.4-12.1) Seconds INR APTT (26.0-36.0) Seconds Sodium (136-145) mEq/L Potassium (3.5-5.1) mEq/L Chloride (98-107) mEq/L Carbon Dioxide (23-29) mEq/L BUN (8-23) mg/dL Creatinine (0.70-1.30) mg/dL Est GFR ( Amer) (> 60) Est GFR (Non-Af Amer) (> 60) BUN/Creatinine Ratio (6-26) Glucose (70-105) mg/dL Calculated Osmolality (280-300) Lactic Acid 1.8 (0.5-2.2) mmol/L Calcium (8.6-10.3) mg/dL Total Bilirubin (0.3-1.0) mg/dL AST (13-39) Units/L ALT (7-52) Units/L Alkaline Phosphatase (34-104) Units/L Troponin I (< 0.04) ng/mL Serum Total Protein (6.4-8.9) g/dL Albumin (3.5-5.7) g/dL Globulin (2.4-3.5) g/dL Albumin/Globulin Ratio (1.1-2.2) Lipase (11-82) Units/L Blood Type O POSITIVE Antibody Screen NEGATIVE Crossmatch See Detail - EKG Data EKG attestation: Yes I reviewed and interpreted this EKG. EKG results narrative: EKG done at 1254 review by myself and the attending shows been trickily paced rhythm at a rate of 93, MA interval 41, QRS 197, QTC 571. There is no acute ST changes no acute T-wave changes no signs of ischemia. Patient does not meet scar Dunn criteria. No changes based on old EKG done 05/15/19 Attestation Statement - Attestation Attestation: I, Miki Malave, examined this patient and my medical decision-making was reviewed with the EARLY CHILDHOOD EDUCATION COORDINATOR/PA/Advanced Practice Nurse/Resident Physician. I agree with the documented findings, disposition and treatment plan as described except to the extent set forth below. 83-year-old male presents emergency department for evaluation of anemia. Patient states he has history of anemia and was recently admitted for GI bleeding from likely upper GI source. Patient was transfused 2 units during that stay and then discharged home. Patient states he is a hospice patient. Today he had an episode of dialysis and he was called afterwards informing him that his hemoglobin was 6.7 and that he needed emergent evaluation in the emergency department. He should not states that he has been taking Protonix wi th improvement of his bowel movements. He states they were initially melanotic after his discharge from the hospital however over the past few days they have been brown and soft. Patient denies recent trauma. He was initially hypotensive in the emergency department. He was given of small fluid bolus of 250 mL normal saline which significantly improved his blood pressure. Patient is awake alert and answering questions appropriately. Patient was ordered blood for transfusion as he is weak and fatigued at home and has been unable to perform his activities of daily living. Patient will be admitted to the hospitalist for further care and evaluation.
[2019-05-21] MEDS ORDERED: Ondansetron 4 MG/2 ML VIAL IVP PRN (15:11)
[2019-05-21] MEDS ORDERED: Naloxone 0.4 MG/ML INJ IVP PRN (15:11)
--- NOTE | 2019-05-21 15:35 | Internal Med History&Physical ---
Date of Encounter: 05/21/19 Time of Encounter: 15:00 Internal Medicine - H&P: HPI Chief complaint: Generalized weakness, low hemoglobin Admitted From: Home History of present illness: Mr. Amaro is a 83 year old male with history of ESRD on hemodialysis, CAD, heart failure with reduced EF status post ICD, atrial fibrillation, who presented from dialysis center due to low hemoglobin. OF note, pt was admitted for a similar complaint a week ago and was discharged after 2U pRBC with Hb 7.7. Patient is enrolled in hospice program and it was agreed upon that he was not to pursue any endoscopic investigation regarding anemia. Since the discharge, patient's daughter states that he has been progressively weaker to the point where he could not walk into the dialysis center today. He did complete a full session today but the bloodwork came back with Hb of 6.7 hence he was sent to the ER for further evaluation. Other than generalized weakness, patient denies any chest pain, shortness of breath, cough, sputum production, palpitation, ort hopnea, PND, or worsening leg swelling. No abdominal pain, nausea/vomiting, change in bowel habits, focal weakness/numbness, slurring of speech, or facial droop. Denies melena, hematochezia, bright red blood per rectum, or hematemesis. In the ED, he was hypotensive at 82/61 (was 77/40 at the last admission), but otherwise afebrile with normal HR. Although his outpatient blood work revealed hemoglobin of 6.7, repeat H&H showed Hb of 7.3. INR 1.2, Plt 230, K 3.4, Cr 3.39. Troponin was 0.05 which is chronically elevated. Lactic acid normal. Pt was started on 1 unit PRBC and admitted for further management. Past Med Surg Social Fam HX - Past Medical History Medical history: atrial fibrillation, cardiomyopathy, CHF, coronary artery disease, GERD, hyperlipidemia, hypertension, myocardial infarction, renal disease, other Additional medical history: gout Psychiatric history: anxiety - Past Surgical History Surgical History: angioplasty/stent, cataract, knee replacement, orthopedic, other, pacemaker/AICD, other Additional surgical history: rotator cuff tears, grafts down leg from [facility] - Social History Smoking Status: Never smoker Smokeless Tobacco Status: No Alcohol use: none Drug use: none - Family History Brother Family Member Ethnicity: Non- Living Status: Still Living Sister Family Member Ethnicity: Non- Living Status: Still Living Hx Family Cardiac Disorders: Yes (NE, HD) Hx Family Endocrine Disorder: Yes (DM) Mother Family Member Ethnicity: Non- Living Status: Hx Family Cardiac Disorders: Yes (HD) Hx Family Respiratory Disorders: No Hx Family Cancer: No Hx Family GI Disorders: No Hx Family Endocrine Disorder: Yes (DM) Hx Family Neuromuscular Disorders: No Hx Family Neurologic Disorders: No Hx Family HEENT Disorders: No Hx Family Autoimmune Disorders: No Father Family Member Ethnicity: Non- Living Status: Hx Family Cardiac Disorders: Yes Hx Family Neurologic Disorders: Yes (Alzheimer's disease) Internal Medicine - H&P: Meds Aspirin Enteric Coated [Aspirin EC] 81 mg PO DAILY 09/10/15 [History] Fluticasone Propionate Nasal [Flonase] 100 mcg NS DAILY PRN 06/13/17 [History] Isosorbide MONOnitrate (24 HR) [Imdur] 30 mg PO DAILY 07/07/17 [Rx] Simvastatin [Zocor] 40 mg PO QPM tab 07/07/17 [Rx] Lidocaine/Prilocaine CREAM [Emla] 1 appl TP AD 01/04/18 [History] Renal Vitamin [Renal Caps Softgel] 1 mg PO QPM 01/04/18 [History] Albuterol Neb [AccuNeb] 0.63 mg IH Q6H PRN 05/15/19 [History] Allopurinol [Zyloprim 100 MG] 100 mg PO BID 05/15/19 [History] Finasteride [Proscar] 5 mg PO QPM 05/15/19 [History] Furosemide [Lasix] 40 mg PO AD 05/15/19 [History] Tramadol HCl [Ultram] 50 mg PO QID PRN 05/15/19 [History] Allergy/AdvReac Type Severity Reaction Status Date / Time No Known Allergies Allergy Verified 09/06/18 21:16 All Systems PM: A 10-system review of systems was performed and is negative for pertinent findings except as documented above in the HPI. - Constitutional Vitals: Temp Pulse Resp BP Pulse Ox 98.1 F 90 15 91/66 100 05/21/19 14:44 05/21/19 15:12 05/21/19 14:44 05/21/19 15:12 05/21/19 15:12 Exam: General: Alert and oriented, not in acute distress. HEENT:EOMI, pupils equal, round and reactive. Cardiovascular:Normal S1 & S2, No JVD. Pulse regular. Lungs: clear to auscultation, no wheezes/rales Abdomen:Soft, non-tender, no rigidity. Extremities:No deformity or swelling Neurological:CN II-XII intact, subjective weakness in bilateral lower extremities, full power on both UEs. Sensation fully intact in all 4 limbs. No cerebellar signs, pronator drift -ve, Babinski downgoing bilaterally Skin:Normal color, no rash, no lesions. Pulses:Carotid and radial pulses normal +2. Rest of the physical exam is non contributory Internal Med - H&P Results - Labs CBC & Chem 7: 05/21/19 13:01 05/21/19 13:01 Labs: Short CBC 05/21/19 Range/Units 13:01 WBC 8.1 (4.3-11.1) K/mcL Hgb 7.3 L (12.9-16.9) g/dL Hct 22.8 L (37.5-50.1) % Plt Count 230 (140-400) K/mcL Neutrophils # 6.1 (1.6-8.9) K/mcL BMP 05/21/19 13:01 Sodium 136 Potassium 3.4 L Chloride 98 Carbon Dioxide 26 BUN 27 H Creatinine 3.39 H Glucose 164 H Calcium 8.9 Cardiac Enzymes 05/21/19 Range/Units 13:01 Troponin I 0.05 H* (< 0.04) ng/mL Liver Function 05/21/19 Range/Units 13:01 Total Bilirubin 0.9 (0.3-1.0) mg/dL AST 23 (13-39) Units/L ALT 16 (7-52) Units/L Alkaline Phosphatase 134 H (34-104) Units/L Albumin 3.8 (3.5-5.7) g/dL - Assessment and Plan (1) Generalized weakness Current Visit: Yes Status: Acute Assessment and plan: Second admission for generalized weakness over the lsat 2 weeks, which was initially attributed to symptomatic anemia transfused 2U pRBC with Hb of 7.7 at the time of discharge. Daughter states that he was stronger afterward but again progressively declined Hb at outpt lab was 6.7, repeat in the ED 7.3 Given relatively stable Hb, doubtful that his symptoms are entirely explained by anemia noted that he is also hypotensive, states that it is chronic but still lower than his usual values 1U pRBC being transfused currently, will hold off on further pRBC tonight since he developed dyspnea during the last admission. will start midodrine 5mg TID and monitor BP (2) Anemia Current Visit: No Status: Chronic Assessment and plan: Hb 6.7 at outside lab, 7.3 upon presentation to the ED not a candidate for endoscopic evaluation due to his severe comorbidities and hospice status 1U pRBC and monitor. Cautious transfusion given severe systolic dysfunction repeat iron profile, B12, folate Qualifiers: Anemia type: unspecified type Qualified Code(s): D64.9 - Anemia, unspecified (3) Hypotension Current Visit: No Status: Chronic Assessment and plan: start midodrine as above Qualifiers: Hypotension type: hemodialysis-associated hypotension Qualified Code(s): I95.3 - Hypotension of hemodialysis (4) HFrEF (heart failure with reduced ejection fraction) Current Visit: Yes Status: Chronic Assessment and plan: EF 25% on Echo 08/2018 s/p ICD, not on ADRIANNA-i, bb, or aldactone due to hypotension poor prognosis, hospice pt Qualifiers: Heart failure chronicity: chronic Qualified Code(s): I50.22 - Chronic systolic (congestive) heart failure (5) ESRD (end stage renal disease) on dialysis Current Visit: Yes Status: Chronic Assessment and plan: despite his hospice status, continues HD on MWF if he stays in hospital till Tue, would consult nephrology (6) Elevated troponin Current Visit: No Status: Chronic Assessment and plan: chronically elevated, no symptoms of angina (7) Hypokalemia Current Visit: Yes Status: Acute Assessment and plan: just underwent HD today anticipate that it will gradually increase again before the next HD (8) DVT prophylaxis Current Visit: No Status: Acute Assessment and plan: EPCD - Time Spent With Patient Total time spent is greater than 50% in coordination of care (as documented) at patient's floor/unit and/or counseling patient: 25 - 35 minutes
[2019-05-21] MEDS ORDERED: traMADol 50 MG TABLET PO PRN (15:51)
[2019-05-21] MEDS ORDERED: Albuterol Neb 0.63 MG/3 ML VIAL IH PRN (15:51)
[2019-05-21] MEDS ORDERED: Fluticasone Propionate Nasal 50 MCG/SPRAY BOTTLE NS PRN (15:51)
[2019-05-21] MEDS ORDERED: Sucralfate 1 GM TABLET PO SCH (17:00)
[2019-05-21] MEDS: Sucralfate 1 GM TABLET PO SCH (17:25)
[2019-05-21] MEDS: Pantoprazole 40 MG VIAL IVP SCH (17:25)
[2019-05-21] MEDS ORDERED: Finasteride 5 MG TABLET PO SCH (18:00)
[2019-05-22 04:48] LABS: Hematocrit 24.2 % (37.5-50.1); Hemoglobin 7.6 g/dL (12.9-16.9)
[2019-05-22 05:07] LABS: Calcium 8.8 mg/dL (8.6-10.3); Potassium 3.6 mEq/L (3.5-5.1)
[2019-05-22 05:09] LABS: % Iron Saturation 34 % (20-55); Iron 109 mcg/dL (65-175); Transferrin 228 mg/dL (203-362)
[2019-05-22] MEDS: Pantoprazole 40 MG VIAL IVP SCH (05:26)
[2019-05-22 05:34] LABS: Folate > 22.3 ng/mL (3.0-16.0)
[2019-05-22 05:40] LABS: Vitamin B12 807 pg/mL (250-1100)
[2019-05-22 06:53] VITALS: BP 104/65
[2019-05-22] MEDS: Sucralfate 1 GM TABLET PO SCH (08:39)
[2019-05-22] MEDS ORDERED: Aspirin Enteric Coated 81 MG Tablet PO SCH (09:00)
--- NOTE | 2019-05-22 09:44 | Discharge Summary ---
- NOTES TO OUTPATIENT PROVIDER Notes to Outpatient Provider: Hold off on lasix until Nephrology follow up. Imdur discontinued due to hypotension Orders not resulted at time of discharge: Pending orders 05/21/19 13:01 Red Blood Cells [BBK] Stat Type and Screen [BBK] Stat 05/21/19 13:03 ECG 12 lead ECG [ECG] Stat 05/21/19 19:03 Occult Blood,Stool [BF] Routine Date of Encounter: 05/22/19 Time of Encounter: 07:15 - Discharge Diagnosis (1) Generalized weakness Priority: Primary Status: Acute (2) Anemia Priority: Secondary Status: Chronic Qualifiers: Anemia type: unspecified type Qualified Code(s): D64.9 - Anemia, unspecified (3) Hypotension Priority: Secondary Status: Chronic Qualifiers: Hypotension type: hemodialysis-associated hypotension Qualified Code(s): I95.3 - Hypotension of hemodialysis (4) HFrEF (heart failure with reduced ejection fraction) Priority: Secondary Status: Chronic Qualifiers: Heart failure chronicity: chronic Qualified Code(s): I50.22 - Chronic systolic (congestive) heart failure (5) ESRD (end stage renal disease) on dialysis Priority: Secondary Status: Chronic (6) Elevated troponin Priority: Secondary Status: Chronic (7) Hypokalemia Priority: Secondary Status: Acute (8) DVT prophylaxis Priority: Secondary Status: Acute Hospital course: Mr. Amaro is a 83 year old male (from home hospice) with history of ESRD on hemodialysis, CAD, heart failure with reduced EF status post ICD, atrial fibrillation, who was admitted for generalized weakness secondary to symptomatic anemia and hypotension associated with HD. OF note, pt was admitted for a similar complaint a week ago and was discharged after 2U pRBC with Hb 7.7. He was deemed to be a poor candidate for endoscopy due to his comorbidities and pt also refused further investigation for anemia. Iron profile/B12/folate unremarkable. Hb at the outpt lab was 6.7 and received 1U prBC which improved Hb to 7.6. Midodrine 5mg TID was also added with improvement in his BP. Given his persistent hypotension, Imdur and lasix were held and advised the pt to follow up with cardiology and Nephrology as outpatient. Discharge discussed with: patient, family, social work, case management - Time Spent with Patient Total time spent providing and/or coordinating discharge services: 29 mins - Discharge Medications Prescriptions: New Midodrine [ProAmatine] 5 mg PO 0800,1200,1700 #90 tablet Continued Aspirin Enteric Coated [Aspirin EC] 81 mg PO DAILY Fluticasone Propionate Nasal [Flonase] 100 mcg NS DAILY PRN PRN Reason: Congestion Simvastatin [Zocor] 40 mg PO QPM tab Renal Vitamin [Renal Caps Softgel] 1 mg PO QPM Lidocaine/Prilocaine CREAM [Emla] 1 appl TP AD Albuterol Neb [AccuNeb] 0.63 mg IH Q6H PRN PRN Reason: Shortness Of Breath Allopurinol [Zyloprim 100 MG] 100 mg PO BID Finasteride [Proscar] 5 mg PO QPM Furosemide [Lasix] 40 mg PO AD Tramadol HCl [Ultram] 50 mg PO QID PRN PRN Reason: Pain Sucralfate [Carafate] 1 tab PO TIDWM Pantoprazole 40 mg PO DAILY Discontinued Isosorbide MONOnitrate (24 HR) [Imdur] 30 mg PO DAILY Home Medications: Aspirin Enteric Coated [Aspirin EC] 81 mg PO DAILY 09/10/15 [History] Fluticasone Propionate Nasal [Flonase] 100 mcg NS DAILY PRN 06/13/17 [History] Simvastatin [Zocor] 40 mg PO QPM tab 07/07/17 [Rx] Lidocaine/Prilocaine CREAM [Emla] 1 appl TP AD 01/04/18 [History] Renal Vitamin [Renal Caps Softgel] 1 mg PO QPM 01/04/18 [History] Albuterol Neb [AccuNeb] 0.63 mg IH Q6H PRN 05/15/19 [History] Allopurinol [Zyloprim 100 MG] 100 mg PO BID 05/15/19 [History] Finasteride [Proscar] 5 mg PO QPM 05/15/19 [History] Furosemide [Lasix] 40 mg PO AD 05/15/19 [History] Tramadol HCl [Ultram] 50 mg PO QID PRN 05/15/19 [History] Pantoprazole 40 mg PO DAILY 05/21/19 [History] Sucralfate [Carafate] 1 tab PO TIDWM 05/21/19 [History] Midodrine [ProAmatine] 5 mg PO 0800,1200,1700 #90 tablet 05/22/19 [Rx] Allergies/Adverse Reactions: Allergy/AdvReac Type Severity Reaction Status Date / Time No Known Allergies Allergy Verified 09/06/18 21:16 Date of admission: 05/21/19 15:37 Primary care physician: PCP NONE Consults: 05/22/19 07:40 Consult to Nurse Navigator [CONS] Routine Comment: hd - Constitutional Vitals: Temp Pulse Resp BP Pulse Ox 98.0 F 88 18 104/65 99 05/22/19 06:52 05/22/19 06:52 05/22/19 06:52 05/22/19 06:52 05/22/19 06:52 Exam: General: Alert and oriented, not in acute distress. Cardiovascular:Normal S1 & S2, No JVD. Pulse regular. Lungs: clear to auscultation, no wheezes/rales Abdomen:Soft, non-tender, no rigidity. Extremities:No deformity or swelling Neurological:CN II-XII intact, subjective weakness in bilateral lower extremities, full power on both UEs. Sensation fully intact in all 4 limbs. No cerebellar signs, pronator drift -ve, Babinski downgoing bilaterally - Patient Status Disposition: Hospice - Home Condition: Fair Overall status at discharge: patient is progressing back to baseline - Discharge Instructions Instructions: Anemia (GEN) Follow Up With: NONE,PCP [Primary Care Provider] - Additional Instructions: Imdur and lasix on hold till Cardiology and Nephrology follow up - Diet and Activity Activity: as per physical therapy Diet: advance to your usual diet
--- NOTE | 2019-05-22 09:51 | Physician Discharge Referral ---
Home Health/Hosp Referral Info Transfer to: Hospice - Diagnosis (1) Generalized weakness Priority: Primary Status: Acute (2) Anemia Priority: Secondary Status: Chronic (3) Hypotension Priority: Secondary Status: Chronic (4) HFrEF (heart failure with reduced ejection fraction) Priority: Secondary Status: Chronic (5) ESRD (end stage renal disease) on dialysis Priority: Secondary Status: Chronic (6) Elevated troponin Priority: Secondary Status: Chronic (7) Hypokalemia Priority: Secondary Status: Acute (8) DVT prophylaxis Priority: Secondary Status: Acute - Respiratory Orders Smoking Cessation: Smoking cessation has been advised. For more information, call the [place] Tobacco Quit Line at 3-623-CRHS-NOW. - Transfer Medications Prescriptions: Midodrine [ProAmatine] 5 mg PO 0800,1200,1700 #90 tablet Home Medications: Aspirin Enteric Coated [Aspirin EC] 81 mg PO DAILY 09/10/15 [History] Fluticasone Propionate Nasal [Flonase] 100 mcg NS DAILY PRN 06/13/17 [History] Simvastatin [Zocor] 40 mg PO QPM tab 07/07/17 [Rx] Lidocaine/Prilocaine CREAM [Emla] 1 appl TP AD 01/04/18 [History] Renal Vitamin [Renal Caps Softgel] 1 mg PO QPM 01/04/18 [History] Albuterol Neb [AccuNeb] 0.63 mg IH Q6H PRN 05/15/19 [History] Allopurinol [Zyloprim 100 MG] 100 mg PO BID 05/15/19 [History] Finasteride [Proscar] 5 mg PO QPM 05/15/19 [History] Furosemide [Lasix] 40 mg PO AD 05/15/19 [History] Tramadol HCl [Ultram] 50 mg PO QID PRN 05/15/19 [History] Pantoprazole 40 mg PO DAILY 05/21/19 [History] Sucralfate [Carafate] 1 tab PO TIDWM 05/21/19 [History] Midodrine [ProAmatine] 5 mg PO 0800,1200,1700 #90 tablet 05/22/19 [Rx] Allergies/Adverse Reactions: Allergy/AdvReac Type Severity Reaction Status Date / Time No Known Allergies Allergy Verified 09/06/18 21:16 Certification: Further, I certify that my clinical findings support that this patient is homebound (i.e. absences from home require considerable and taxing effort and are for medical reasons or spiritism services or infrequently or short duration when for other reasons) because: Homebound Reason: Patient requires assistance of a person or device to safely leave home, Severity of cardiac or pulmonary status limits activity tolerance Attestation: My signature below is to certify that this patient is under my care and that I, or nurse practitioner, or a physician's anatomic pathology assistant working with me, has a [id number] encounter with this patient.
--- NOTE | 2019-05-22 14:08 | Electrocardiograph Report ---
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
== END 2019-05-22 10:50 | disposition hospice, home (50) ==
LOC: 2ANU 12:44 → EMEROOARM 12:44 → SUATTDRO 15:37 → 2ANU 16:20
PROVIDERS: ADMIT Student in an Organized Health Care Education/Training Program; ATTEND Internal Medicine

== ENCOUNTER 2019-06-06 11:25 | Observation (INO) ==
--- NOTE | 2019-06-06 11:40 | Emergency Department Note ---
Disposition Clinical Impression: Symptomatic anemia, Melena, Presence of combination internal cardiac defibrillator (ICD) and pacemaker Disposition: Admitted As Inpatient Time of Disposition: 14:03 General Adult HPI - General Chief complaint: ED GI Bleed Stated complaint: GI Bleed Time Seen by Provider: 06/06/19 11:38 Nursing Notes Reviewed: Yes Vital Signs Reviewed: Yes - History of Present Illness HPI Narrative: 83-year-old male with history of end-stage renal disease on dialysis, atrial fibrillation status post AICD on Plavix , current status as hospice patient who presents the emergency department from dialysis secondary to low hemoglobin. The patient was found to have hemoglobin of 6.0. The patient states he has been feeling more short of breath and weak. He has recently had multiple blood transfusions, most recently last week. The patient has been admitted several t imes over the last 2 months with symptomatic anemia. He was deemed not a candidate for colonoscopy/endoscopy secondary to his decreased EF and he has declined further evaluation for causes of his anemia. He does admit to melena but daughter states that his Plavix which was to be held has not been taken from his medication regimen as of yet. Patient otherwise denies any vomiting, hemoptysis, abdominal pain, chest pain. The patient was able to complete his dialysis session today. He is a Tuesday dialysis patient but had an extra dialysis session on Tuesday secondary to fluid overload. Pain Scale: 0 - Related Data Home Medications Medication Instructions Recorded Confirmed Aspirin Enteric Coated [Aspirin EC] 81 mg PO DAILY 09/10/15 05/21/19 Fluticasone Propionate Nasal 100 mcg NS DAILY PRN 06/13/17 05/21/19 [Flonase] Lidocaine/Prilocaine CREAM [Emla] 1 appl TP AD 01/04/18 05/21/19 Renal Vitamin [Renal Caps Softgel] 1 mg PO QPM 01/04/18 05/21/19 Albuterol Neb [AccuNeb] 0.63 mg IH Q6H PRN 05/15/19 05/21/19 Allopurinol [Zyloprim 100 MG] 100 mg PO BID 05/15/19 05/21/19 Finasteride [Proscar] 5 mg PO QPM 05/15/19 05/21/19 Furosemide [Lasix] 40 mg PO AD 05/15/19 05/21/19 Tramadol HCl [Ultram] 50 mg PO QID PRN 05/15/19 05/21/19 Pantoprazole 40 mg PO DAILY 05/21/19 05/21/19 Sucralfate [Carafate] 1 tab PO TIDWM 05/21/19 05/21/19 Previous Rx's Medication Instructions Recorded Simvastatin [Zocor] 40 mg PO QPM tab 07/07/17 Midodrine [ProAmatine] 5 mg PO 0800,1200,1700 #90 tablet 05/22/19 Allergies Allergy/AdvReac Type Severity Reaction Status Date / Time No Known Allergies Allergy Verified 09/06/18 21:16 Review of Systems: ROS per history of present illness, all other systems reviewed and negative or normal. All systems ED: reviewed and negative except as stated. Review of Systems: As Per HPI Past Medical History - Past Medical History Medical history: Reports: atrial fibrillation, cardiomyopathy, CHF, coronary artery disease, GERD, hyperlipidemia, hypertension, myocardial infarction, renal disease, other Surgical history: Reports: angioplasty/stent, cataract, knee replacement, orthopedic, other, pacemaker/AICD, other Psychiatric history: Reports: anxiety - Social History Smoking Status: Never smoker Smokeless Tobacco Status: No Alcohol use: Reports: none Drug use: Reports: none Physical Exam General: Conversant. No apparent distress. Follow commands. Appears stated age. Neck: No JVD. Trachea midline. Neck supple. Eyes: PERRL. No scleral icterus. HENT: Normocephalic and atraumatic. Moist mucus membranes. Cardiovascular: Regular rate and rhythm. Normal S1 and S2. No murmurs appreciated. Normal capillary refill. Extremities well perfused with 2+ distal pulses bilaterally. No edema. Pulmonary: Normal and equal breath sounds bilaterally, anteriorly and posteriorly. No wheezes, rales, or rhonchi. Not in respiratory distress, on 4L NC. Speaks in full sentences. Abdomen: Soft, nondistended, and tontender. No bruits or masses. No guarding. Neuro: Alert and oriented x3. No slurred speech. No focal deficits noted. Skin: No rashes noted on visualized skin. Musculoskeletal: No bony abnormalities visualized. Moves all extremities. Psych: Normal mood. Pleasant. Makes appropriate eye contact. Course Vital Signs Temperature 97.5 F L 06/06/19 11:34 Pulse Rate 84 06/06/19 11:34 Respiratory Rate 20 06/06/19 11:34 Blood Pressure 83/45 06/06/19 11:34 O2 Sat by Pulse Oximetry 99 06/06/19 11:34 Temperature 97.4 F L 06/06/19 14:55 Pulse Rate 85 06/06/19 14:55 Respiratory Rate 18 06/06/19 14:55 Blood Pressure 93/56 06/06/19 14:55 O2 Sat by Pulse Oximetry 94 06/06/19 14:55 Oxygen Delivery Oxygen Delivery Nasal Cannula Medical Decision Making - MDM Narrative Medical decision making narrative: 83-year-old male who presents the emergency department from dialysis secondary to anemia. The patient has had 2 previous admissions this month for symptomatic anemia. Laboratory evaluation shows anemia of 6.0. The patient does feel short of breath and fatigued. Blood pressure shows borderline hypotension which appears the patient's baseline. Did not order fluids given the patient's significant anemia His most recent transfusion was approximately one week ago, one unit transfused. Given the patient's symptoms ordered type and screen as well as 2 units packed red blood cells. The patient has previously been deemed not a candidate for endoscopy or colonoscopy given significant cardiac risk factors. Laboratory evaluation otherwise appears his baseline. He has also declined further workup for anemia. He is also on hospice. Given the patient continues to have anemia with symptoms will admit to the hospitalist for further evaluation for hemoglobin monitoring and likely long-term care plan, and as he may need transfusions during dialysis to avoid frequent hospitalizations. Discussed case with on-call hospitalist Dr. Horton who agrees with plan for admission and accepts the patient to the inpatient service. Patient agrees with and understands course of treatment plan including plan for admission. All qu estions answered. - Medical Records Medical records reviewed: Yes I reviewed the patient's medical records. - Lab Data Lab results reviewed: Yes I reviewed the patient's lab results. Result diagrams: 06/06/19 11:45 06/06/19 11:45 Lab Results 06/06/19 06/06/19 06/06/19 Range/Units 11:45 11:45 11:45 WBC 7.4 (4.3-11.1) K/mcL RBC 1.81 L (4.19-5.50) M/mcL Hgb 6.2 L (12.9-16.9) g/dL Hct 19.7 L (37.5-50.1) % MCV 108.8 H (83.0-100.0) fL MCH 34.3 H (28.0-33.3) pg MCHC 31.5 L (31.6-35.5) g/dL RDW 18.4 H (11.5-14.5) % Plt Count 254 (140-400) K/mcL MPV 10.6 (9.4-12.4) fL Seg Neutrophils % 66.0 % Lymphocytes % 10.0 % Monocytes % 20.0 % Eosinophils % 4.0 % Neutrophils # 4.9 (1.6-8.9) K/mcL Lymphocytes # 0.7 (0.6-4.6) K/mcL Monocytes # 1.5 H (0.0-1.3) K/mcL Eosinophils # 0.3 (0.0-0.6) K/mcL Platelet Estimate Normal (Normal) Poikilocytosis 1+ A (Not Present) Anisocytosis 1+ A (Not Present) Sodium 132 L (136-145) mEq/L Potassium 3.4 L (3.5-5.1) mEq/L Chloride 93 L (98-107) mEq/L Carbon Dioxide 27 (23-29) mEq/L BUN 51 H (8-23) mg/dL Creatinine 4.58 H (0.70-1.30) mg/dL Est GFR ( Amer) 15 L (> 60) Est GFR (Non-Af Amer) 12 L (> 60) BUN/Creatinine Ratio 11 (6-26) Glucose 176 H (70-105) mg/dL Calculated Osmolality 292 (280-300) Calcium 9.4 (8.6-10.3) mg/dL Blood Type O POSITIVE Antibody Screen NEGATIVE Crossmatch See Detail - Radiology Data Radiology results reviewed: Yes I reviewed the patient's radiology results. Chest X-Ray 06/06/19 11:49 IMPRESSION: Right lower lobe atelectasis versus chronic interstitial changes. D/ / Ap Estes MD / Ap Estes MD Interpreting Provider: Ap Estes MD - EKG Data EKG #1 EKG attestation: Yes I reviewed and interpreted this EKG. EKG results narrative: Ventricularly paced rhythm rate of 81. Negative scarbossa. When compared with prior from 06/13/17 there are no significant changes Critical Care Time Critical Care Time: Yes Total Critical Care Time: 30 Attestation: The high probability of a clinically significant, sudden or life threatening deterioration of the [] system(s) required my full and direct attention, intervention and personal management. The aggregate critical care time was [] minutes. This time is in addition to time spent performing reported procedures but includes the following: [] Data Review and interpretation [] Patient assessment and monitoring of vital signs [] Documentation [] Medication orders and management Attestation Statement - Attestation Attestation: I reviewed the residents documentation and agree with the residents assessment and plan of care. I have personally had face to face time with the patient. (Brief History, Brief Exam, and MDM) I personally supervised and was present for the lincoln/critical portions of the following procedures completed by the resident: (add procedures performed here). [id number] time provided Patient arrives complaining of blood per rectum. Triage note and vitals reviewed by me. Patient was evaluated in conjunction with the resident physician Dr. Fang. He appears in no acute distress on exam I attest to supervising the resident physician's interpretation of the ECG
[2019-06-06 12:12] LABS: Hematocrit 19.7 % (37.5-50.1); Hemoglobin 6.2 g/dL (12.9-16.9); Mean Corpuscular HGB Conc 31.5 g/dL (31.6-35.5); Mean Corpuscular Hemoglobin 34.3 pg (28.0-33.3); Mean Corpuscular Volume 108.8 fL (83.0-100.0); Mean Platelet Volume 10.6 fL (9.4-12.4); Platelet Count 254 K/mcL (140-400); Red Blood Count 1.81 M/mcL (4.19-5.50); Red Cell Distribution Width 18.4 % (11.5-14.5); White Blood Count 7.4 K/mcL (4.3-11.1)
[2019-06-06 12:13] LABS: Eosinophils # 0.3 K/mcL (0.0-0.6); Monocytes # 1.5 K/mcL (0.0-1.3)
[2019-06-06 12:21] LABS: Calcium 9.4 mg/dL (8.6-10.3); Potassium 3.4 mEq/L (3.5-5.1)
[2019-06-06 12:35] LABS: Lymphocytes # 0.7 K/mcL (0.6-4.6); Neutrophils # 4.9 K/mcL (1.6-8.9)
[2019-06-06 12:36] LABS: Anisocytosis 1+ (Not Present); Platelet Estimate Normal (Normal); Poikilocytosis 1+ (Not Present)
[2019-06-06] MEDS ORDERED: 0.9 % Sodium Chloride 1,000 ML ONE (13:12)
[2019-06-06] MEDS ORDERED: Naloxone 0.4 MG/ML INJ IVP PRN (15:05)
--- NOTE | 2019-06-06 17:59 | Internal Med History&Physical ---
Date of Encounter: 06/06/19 Time of Encounter: 17:54 Internal Medicine - H&P: HPI Admitted From: Home Plans for Post Hospital Care: Hospice - Home History of present illness: Mr. Amaro is a 83 year old male with a past medical history of end-stage renal disease, atrial fibrillation, heart failure with reduced ejection fraction status post AICD. He his on home hospice for end stage heart failure. The patient was asked by his compliance counsel to come to the hospital because his hemoglobin was found to be 6.8g/dl on labs. He had a 2 hour session of dialysis earlier today and mainly filtration was done. The patient denies, chest pain, palpitations, lightheadedness and SOB. He however admits that he has been passing dark tarry stools for some days now. Past Med Surg Social Fam HX - Past Medical History Medical history: non-contributory, atrial fibrillation, cardiomyopathy, CHF, coronary artery disease, dialysis, GERD, hyperlipidemia, hypertension, myocardial infarction, renal disease, other Additional medical history: gout Psychiatric history: anxiety - Past Surgical History Surgical History: angioplasty/stent, cataract, knee replacement, orthopedic, other, pacemaker/AICD, other Additional surgical history: rotator cuff tears, grafts down leg from [place], fistula right forearm - Social History Smoking Status: Former smoker Alcohol use: none Drug use: none - Family History Brother Family Member Ethnicity: Non- Living Status: Still Living Sister Family Member Ethnicity: Non- Living Status: Still Living Hx Family Cardiac Disorders: Yes ([place], HD) Hx Family Endocrine Disorder: Yes (DM) Mother Family Member Ethnicity: Non- Living Status: Hx Family Cardiac Disorders: Yes (HD) Hx Family Respiratory Disorders: No Hx Family Cancer: No Hx Family GI Disorders: No Hx Family Endocrine Disorder: Yes (DM) Hx Family Neuromuscular Disorders: No Hx Family Neurologic Disorders: No Hx Family HEENT Disorders: No Hx Family Autoimmune Disorders: No Father Family Member Ethnicity: Non- Living Status: Hx Family Cardiac Disorders: Yes Hx Family Neurologic Disorders: Yes (Alzheimer's disease) - Additional Family History Additional family history: Noncontributory Internal Medicine - H&P: Meds Aspirin Enteric Coated [Aspirin EC] 81 mg PO DAILY 09/10/15 [History] Fluticasone Propionate Nasal [Flonase] 100 mcg NS DAILY PRN 06/13/17 [History] Simvastatin [Zocor] 40 mg PO QPM tab 07/07/17 [Rx] Lidocaine/Prilocaine CREAM [Emla] 1 appl TP AD 01/04/18 [History] Renal Vitamin [Renal Caps Softgel] 1 mg PO QPM 01/04/18 [History] Albuterol Neb [AccuNeb] 0.63 mg IH Q6H PRN 05/15/19 [History] Allopurinol [Zyloprim 100 MG] 100 mg PO BID 05/15/19 [History] Finasteride [Proscar] 5 mg PO QPM 05/15/19 [History] Furosemide [Lasix] 40 mg PO AD 05/15/19 [History] Tramadol HCl [Ultram] 50 mg PO QID PRN 05/15/19 [History] Pantoprazole 40 mg PO DAILY 05/21/19 [History] Sucralfate [Carafate] 1 tab PO TIDWM 05/21/19 [History] Midodrine [ProAmatine] 5 mg PO 0800,1200,1700 #90 tablet 05/22/19 [Rx] Allergy/AdvReac Type Severity Reaction Status Date / Time No Known Allergies Allergy Verified 09/06/18 21:16 All Systems PM: A 10-system review of systems was performed and is negative for pertinent findings except as documented above in the HPI. Review of systems: GENERAL: No lethargy or malaise HEENT: No rhinorrhea, No sore throat, No ear pain or discharge, No dysphagia or odynophagia PULMONARY: No cough, No chest pain, No Sputum production, Has dyspnea on exertion CARDIOVASCULAR: No chest pain, no palpitations, No shortness of breath, Admits orhopnea and PND GASTROINTESTINAL: No abdominal pain, No nausea, No vomiting, No constipation, No diarrhea, No hematemesis, No hematochezia MUSKULOSKELETAL: No edema, No swelling, No pain INTEGUMENTARY: No new skin lesions NERVOUS SYSTEM: No Dizziness, No weakness, No slurred speech, No diplopia or blurred/ loss vision, No numbness, No tingling sensation. - Constitutional Vitals: Temp Pulse Resp BP Pulse Ox 36.3 C L 85 18 93/56 95 06/06/19 17:00 06/06/19 17:00 06/06/19 17:00 06/06/19 17:00 06/06/19 17:00 Exam: GENERAL: Elderly gentleman sitting comfortably in bed. HEENT: EOMI, PERRLA MOUTH: Pale mucous membranes. Moist mucosa NECK:No JVD, No lymph nodes. CHEST AND LUNGS: Normal breath sounds, no wheezes or crackles HEART: S1 and S2 + holosystolic murmur best heard at apex. ABDOMEN: Soft, nontender, no organomegaly SKIN: Normal color, no rahses, no lesions EXTREMITIES: No deformity, no edema, no tenderness, no joint swelling or clubbing NEUROLOGICAL: Normal cognition, normal motor and sensory exam. Internal Med - H&P Results - Labs CBC & Chem 7: 06/06/19 11:45 06/06/19 11:45 Labs: Short CBC 06/06/19 Range/Units 11:45 WBC 7.4 (4.3-11.1) K/mcL Hgb 6.2 L (12.9-16.9) g/dL Hct 19.7 L (37.5-50.1) % Plt Count 254 (140-400) K/mcL Neutrophils # 4.9 (1.6-8.9) K/mcL BMP 06/06/19 11:45 Sodium 132 L Potassium 3.4 L Chloride 93 L Carbon Dioxide 27 BUN 51 H Creatinine 4.58 H Glucose 176 H Calcium 9.4 - Impressions ITS Impressions Chest X-Ray 06/06/19 11:49 IMPRESSION: Right lower lobe atelectasis versus chronic interstitial changes. D/ / Ap Estes MD / Ap Estes MD Interpreting Provider: Ap Estes MD - Assessment and Plan (1) Blood loss anemia Current Visit: No Status: Acute Assessment and plan: Patient states that he has been passsing dark tarry stools for some days now. He does not want GI bleeding to be investigated since he states it is bad for his heart. Will transfuse a unit of blood today and a second unit tomorrow with dialysis. (2) GI bleed Current Visit: No Status: Chronic Assessment and plan: Management as above Qualifiers: GI bleed type/associated pathology: unspecified gastrointestinal hemorrhage type Qualified Code(s): K92.2 - Gastrointestinal hemorrhage, unspecified (3) End-stage renal disease Current Visit: No Status: Acute Assessment and plan: Patient had a 2 hour session of dialysis mainly for the removal of fluids. Will have another session tomorrow with blood transfusion. (4) HFrEF (heart failure with reduced ejection fraction) Current Visit: No Status: Chronic Assessment and plan: Pateint has AICD Will continue home meds and monitor for signs of fluid overload Qualifiers: Heart failure chronicity: chronic Qualified Code(s): I50.22 - Chronic systolic (congestive) heart failure (5) DVT prophylaxis Current Visit: No Status: Acute Assessment and plan: EPCDs - Time Spent With Patient Total time spent is greater than 50% in coordination of care (as documented) at patient's floor/unit and/or counseling patient:
[2019-06-06] MEDS ORDERED: Finasteride 5 MG TABLET PO SCH (21:35)
[2019-06-06] MEDS ORDERED: Renal Vitamin 1 CAP CAPSULE PO SCH (21:35)
[2019-06-06] MEDS ORDERED: Sucralfate 1 GM TABLET PO SCH (21:36)
[2019-06-06] MEDS: Acetaminophen 325 MG TABLET PO PRN (22:08)
[2019-06-06] MEDS ORDERED: rOPINIRole 0.25 MG TABLET PO ONE (23:49)
[2019-06-07 02:22] LABS: Basophils % 0.4 %; Eosinophils # 0.4 K/mcL (0.0-0.6); Eosinophils % 5.1 %; Hematocrit 20.8 % (37.5-50.1); Hemoglobin 6.7 g/dL (12.9-16.9); Immature Granulocytes % 0.4 % (0-4); Lymphocytes # 0.8 K/mcL (0.6-4.6); Lymphocytes % 10.3 %; Mean Corpuscular HGB Conc 32.2 g/dL (31.6-35.5); Mean Corpuscular Hemoglobin 33.5 pg (28.0-33.3); Mean Platelet Volume 10.7 fL (9.4-12.4); Monocytes # 1.5 K/mcL (0.0-1.3); Monocytes % 18.3 %; Platelet Count 256 K/mcL (140-400); Red Cell Distribution Width 19.1 % (11.5-14.5); Segmented Neutrophils % 65.5 %
[2019-06-07 02:29] LABS: Neutrophils # 5.2 K/mcL (1.6-8.9)
[2019-06-07 02:37] LABS: Calcium 9.3 mg/dL (8.6-10.3); Potassium 3.6 mEq/L (3.5-5.1)
[2019-06-07 02:48] LABS: Anisocytosis 2+ (Not Present); Microcytosis Present (Not Present); Platelet Estimate Normal (Normal)
[2019-06-07] MEDS: Acetaminophen 325 MG TABLET PO PRN (09:06)
--- NOTE | 2019-06-07 11:31 | Nephrology Consult Note ---
Date of Encounter: 06/07/19 Time of Encounter: 11:28 Assessment and Plan (1) ESRD (end stage renal disease) on dialysis Current Visit: Yes Status: Acute Current regimen is MWF at [facility]. HD completed yesterday. Plan for HD today with 2 units PRBC's. Renal diet Renal vitamins Strict I/O Avoid nephrotoxins and renal dose all medications. Will order additional UF or HD as needed. (2) Melena Current Visit: Yes Status: Acute Per primary. (3) Symptomatic anemia Current Visit: Yes Status: Acute Initial Hgb is 6.2, 6.7 s/p 1 unit PRBC's. 2 units PRBC's ordered for today. Per primary. History of Present Illness - Reason for Consult Consult date: 06/07/19 end stage renal disease Requesting physician: Nichelle Dunne - Chief Complaint GI Bleed - History of Present Illness Sondra is an 83-year-old male who presented to ED after hemodialysis. He was told his hemoglobin was 6.2, and he was advised to come to the ED for evaluation. PMH: End-stage renal disease on HD, atrial fibrillation, heart failure with reduced ejection fraction status post AICD. Current regimen is Tuesday at [facility]. Did have hemodialysis session yesterday without complication. He runs for 120 minutes and that was completed outpatient. Denies nausea or emesis. Admits to melena that started 2 days. ago. Denies dizzines or palpitations. Is on hospice care for CHF. Lives at home with son, he helps to take care of him. Denies tobacco use, or EtOH. Neither illicit drug use. No family history of chronic kidney disease or hemodialysis. [place] [facility] were consult it for management of hemodialysis. Past Med Surg Social Fam HX - Past Medical History Medical history: non-contributory, atrial fibrillation, cardiomyopathy, CHF, coronary artery disease, dialysis, GERD, hyperlipidemia, hypertension, myocardial infarction, renal disease, other Additional medical history: gout Psychiatric history: anxiety - Past Surgical History Surgical History: angioplasty/stent, cataract, knee replacement, orthopedic, other, pacemaker/AICD, other Additional surgical history: rotator cuff tears, grafts down leg from [place], fistula right forearm - Social History Smoking Status: Former smoker Smokeless Tobacco Status: No Alcohol use: none Drug use: none - Family History Brother Family Member Ethnicity: Non- Living Status: Still Living Sister Family Member Ethnicity: Non- Living Status: Still Living Hx Family Cardiac Disorders: Yes ([place], HD) Hx Family Endocrine Disorder: Yes (DM) Mother Family Member Ethnicity: Non- Living Status: Hx Family Cardiac Disorders: Yes (HD) Hx Family Respiratory Disorders: No Hx Family Cancer: No Hx Family GI Disorders: No Hx Family Endocrine Disorder: Yes (DM) Hx Family Neuromuscular Disorders: No Hx Family Neurologic Disorders: No Hx Family HEENT Disorders: No Hx Family Autoimmune Disorders: No Father Family Member Ethnicity: Non- Living Status: Hx Family Cardiac Disorders: Yes Hx Family Neurologic Disorders: Yes (Alzheimer's disease) Medications and Allergies Aspirin Enteric Coated [Aspirin EC] 81 mg PO DAILY 09/10/15 [History] Fluticasone Propionate Nasal [Flonase] 100 mcg NS DAILY PRN 06/13/17 [History] Simvastatin [Zocor] 40 mg PO QPM tab 07/07/17 [Rx] Lidocaine/Prilocaine CREAM [Emla] 1 appl TP AD 01/04/18 [History] Renal Vitamin [Renal Caps Softgel] 1 mg PO QPM 01/04/18 [History] Albuterol Neb [AccuNeb] 0.63 mg IH Q6H PRN 05/15/19 [History] Allopurinol [Zyloprim 100 MG] 100 mg PO BID 05/15/19 [History] Finasteride [Proscar] 5 mg PO QPM 05/15/19 [History] Furosemide [Lasix] 40 mg PO AD 05/15/19 [History] Tramadol HCl [Ultram] 50 mg PO QID PRN 05/15/19 [History] Pantoprazole 40 mg PO DAILY 05/21/19 [History] Sucralfate [Carafate] 10 ml PO [facility] 05/21/19 [History] Midodrine [ProAmatine] 5 mg PO 0800,1200,1700 #90 tablet 05/22/19 [Rx] Isosorbide Mononitrate ER 30 mg PO DAILY 06/06/19 [History] Allergy/AdvReac Type Severity Reaction Status Date / Time No Known Allergies Allergy Verified 09/06/18 21:16 Review of Systems All Systems review (narrative): The remainder of the systems are negative. Constitutional: fatigue, no chills, no fever(s) Nose, mouth and throat: no dizziness Cardiovascular: no chest pain at rest, no dyspnea, no palpitations Gastrointestinal: change in bowel habits, melena, no diarrhea, no nausea, no vomiting Genitourinary Male: no hematuria Exam - Vital Signs Vital signs: Initial Vital Signs Temp Pulse Resp BP Pulse Ox 97.5 F L 84 20 83/45 99 06/06/19 11:34 06/06/19 11:34 06/06/19 11:34 06/06/19 11:34 06/06/19 11:34 Vital Signs - Last 8 Hours Temp Pulse Resp BP Pulse Ox 06/07/19 09:49 93 06/07/19 07:05 97.8 F 98 18 92/56 100 06/07/19 04:06 97.6 F 83 20 85/55 100 Intake and Output 06/06/19 06/07/19 06/07/19 23:59 07:59 15:59 Intake Total 470 / 470 800 / 920 120 / 920 Balance 470 / 470 800 / 920 120 / 920 Intake: Oral 120 / 120 800 / 920 120 / 920 Blood Product 350 / 350 Rbcs Leuko Poor As-1 Unit 350 / 350 [id number] Other: Meal Dinner Breakfast Percent of Meal Consumed 75% 50% Stool Size Moderate Stool Consistency soft formed Stool Color Black # Bowel Movement Diapers 1 Weight 70.5 kg Patient Weight 06/07/19 23:59 Weight 70.5 kg - General Appearance General appearance: chronically ill, frail EENT: ATNC, hearing intact, vision intact Neck: supple Respiratory: clear Cardiology: no edema, normal S1, normal S2 - Dialysis Access Dialysis Vascular Access: Arteriovenous Fistula thrill: Yes bruit: Yes Gastrointestinal: normoactive bowel sounds, no tenderness, no guarding Integumentary: no rash, warm and dry Neurologic: alert and oriented x3 Musculoskeletal: no deformities, no erythema Psychiatric: mood/affect appropriate, cooperative Results - Lab Results 06/07/19 01:50 06/07/19 01:50 Most recent lab results 06/07/19 01:50 Calcium 9.3 Consult Discharge Plan - Plan Referrals: Rena Christianson, PROTECTIVE SERVICES OFFICER [Primary Care Provider] -
--- NOTE | 2019-06-07 11:32 | Internal Med Progress Note ---
Hospitalist Progress Note - Encounter Date of Encounter: 06/07/19 Time of Encounter: 11:29 - Subjective Interval History: No acute events overnight. Patient has no new complaints. Denies chest pain, SOB and palpitations. - Exam Vitals: Temp Pulse Resp BP Pulse Ox 36.6 C 98 18 92/56 93 06/07/19 07:05 06/07/19 07:05 06/07/19 07:05 06/07/19 07:05 06/07/19 09:49 Exam: GENERAL: Pleasant, alert and Oriented x 3. HEENT: EOMI, PERRLA MOUTH: Pale mucous membranes. Moist mucosa NECK:No JVD, No lymph nodes. CHEST AND LUNGS: Normal breath sounds, no wheezes or crackles HEART: S1 and S2 + holosystolic murmur best heard at apex. ABDOMEN: Soft, nontender, no organomegaly SKIN: Normal color, no rahses, no lesions EXTREMITIES: No deformity, no edema, no tenderness, no joint swelling or clubbing NEUROLOGICAL: Normal cognition, normal motor and sensory exam. - Assessment and Plan (1) Blood loss anemia Current Visit: No Status: Acute Assessment and Plan: Hb 6.7 thid morning Was transfused a unit yesterday Still has some dark stools He does not want GI bleeding to be investigated since he states it is bad for his heart. Will receive 2 more units with dialysis today. (2) GI bleed Current Visit: No Status: Chronic Assessment and Plan: Management as above (3) End-stage renal disease Current Visit: No Status: Acute Assessment and Plan: Had a 2 hour session yesterday. Will receive 2 more units of blood with dialysis today. (4) HFrEF (heart failure with reduced ejection fraction) Current Visit: No Status: Chronic Assessment and Plan: Pateint has AICD Will continue home meds and monitor for signs of fluid overload (5) DVT prophylaxis Current Visit: No Status: Acute Assessment and Plan: EPCDs - Time Spent with Patient Total time spent is greater than 50% in coordination of care (as documented) at patient's floor/unit and/or counseling patient: Internal Medicine: Result - Labs CBC & Chem 7: 06/07/19 01:50 06/07/19 01:50 Labs: Short CBC 06/06/19 06/07/19 Range/Units 11:45 01:50 WBC 7.4 8.0 (4.3-11.1) K/mcL Hgb 6.2 L 6.7 L (12.9-16.9) g/dL Hct 19.7 L 20.8 L (37.5-50.1) % Plt Count 254 256 (140-400) K/mcL Neutrophils # 4.9 5.2 (1.6-8.9) K/mcL BMP 06/06/19 06/07/19 11:45 01:50 Sodium 132 L 132 L Potassium 3.4 L 3.6 Chloride 93 L 94 L Carbon Dioxide 27 24 BUN 51 H 71 H Creatinine 4.58 H 5.57 H Glucose 176 H 150 H Calcium 9.4 9.3 - Impressions Impressions Chest X-Ray 06/06/19 11:49 IMPRESSION: Right lower lobe atelectasis versus chronic interstitial changes. D/ / Ap Estes MD / Ap Estes MD Interpreting Provider: Ap Estes MD Consult Discharge Plan - Plan Referrals: Rena Christianson, CARROTING MACHINE OPERATOR [Primary Care Provider] - (2) GI bleed Qualifiers: Qualified Code(s): K92.2 - Gastrointestinal hemorrhage, unspecified (4) HFrEF (heart failure with reduced ejection fraction) Qualifiers: Qualified Code(s): I50.22 - Chronic systolic (congestive) heart failure
[2019-06-07] MEDS ORDERED: 0.9 % Sodium Chloride 250 ML IVC PRN (11:34)
[2019-06-07] MEDS ORDERED: 0.9 % Sodium Chloride 1,000 ML PRIME SCH (11:45)
--- NOTE | 2019-06-07 15:18 | Electrocardiograph Report ---
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
--- NOTE | 2019-06-07 18:34 | Discharge Summary ---
Date of Encounter: 06/07/19 Time of Encounter: 18:32 - Discharge Diagnosis (1) Blood loss anemia Priority: Primary Status: Acute (2) GI bleed Priority: Secondary Status: Chronic Qualifiers: GI bleed type/associated pathology: unspecified gastrointestinal hemorrhage type Qualified Code(s): K92.2 - Gastrointestinal hemorrhage, unspecified (3) End-stage renal disease Priority: Secondary Status: Acute (4) HFrEF (heart failure with reduced ejection fraction) Priority: Secondary Status: Chronic Qualifiers: Heart failure chronicity: chronic Qualified Code(s): I50.22 - Chronic systolic (congestive) heart failure (5) DVT prophylaxis Priority: Secondary Status: Acute Hospital course: Mr. Amaro is a 83 year old male who presented with severe anemia from his dialysis unit. He is on home hospice and is not interested in full investigations for the source of his bleed. He received 3 units of packed RBCs and total 20 which he had with dialysis. Patient is stable and will be discharged back to home hospice. Discharge discussed with: patient, family, nurse, case management - Time Spent with Patient Total time spent providing and/or coordinating discharge services: Time spent: Greater than 30 minutes (50) - Discharge Medications Prescriptions: Continued Renal Vitamin [Renal Caps Softgel] 1 mg PO QPM Lidocaine/Prilocaine CREAM [Emla] 1 appl TP MOWEFR Allopurinol [Zyloprim 100 MG] 200 mg PO DAILY Finasteride [Proscar] 5 mg PO QPM Sucralfate [Carafate] 10 ml PO WMHS Midodrine [ProAmatine] 5 mg PO 0800,1200,1700 #90 tablet Pantoprazole Sodium 40 mg PO DAILY Benzonatate [Tessalon] 100 mg PO DAILY LORazepam [Ativan] 0.5 mg PO Q4H PRN PRN Reason: Anxiety Albuterol Neb [Proventil Neb] 2.5 mg IH Q4H PRN PRN Reason: Shortness Of Breath No Action Fluticasone Propionate Nasal [Flonase] 100 mcg NS DAILY PRN PRN Reason: Congestion Tramadol HCl [Ultram] 50 mg PO Q4H PRN PRN Reason: Pain Ropinirole HCl 0.25 mg PO HS Home Medications: Fluticasone Propionate Nasal [Flonase] 100 mcg NS DAILY PRN 06/13/17 [History] Lidocaine/Prilocaine CREAM [Emla] 1 appl TP MOWEFR 01/04/18 [History] Renal Vitamin [Renal Caps Softgel] 1 mg PO QPM 01/04/18 [History] Allopurinol [Zyloprim 100 MG] 200 mg PO DAILY 05/15/19 [History] Finasteride [Proscar] 5 mg PO QPM 05/15/19 [History] Tramadol HCl [Ultram] 50 mg PO Q4H PRN 05/15/19 [History] Sucralfate [Carafate] 10 ml PO WMHS 05/21/19 [History] Midodrine [ProAmatine] 5 mg PO 0800,1200,1700 #90 tablet 05/22/19 [Rx] Albuterol Neb [Proventil Neb] 2.5 mg IH Q4H PRN 06/07/19 [History] Benzonatate [Tessalon] 100 mg PO DAILY 06/07/19 [History] LORazepam [Ativan] 0.5 mg PO Q4H PRN 06/07/19 [History] Pantoprazole Sodium 40 mg PO DAILY 06/07/19 [History] Ropinirole HCl 0.25 mg PO HS 06/07/19 [History] Allergies/Adverse Reactions: Allergy/AdvReac Type Severity Reaction Status Date / Time No Known Allergies Allergy Verified 09/06/18 21:16 Date of admission: 06/06/19 13:53 Primary care physician: Rena Christianson CNP Consults: 06/06/19 16:13 Consult to Nephrology [CONS] Routine Consulting Provider: Kidney Tonia/GERTRUDE/MYESHA/MERLIN Reason for Consult: ESRD requiring transfusion with dialysis. Call Completed: Yes 06/07/19 08:14 Consult to Nurse Navigator [CONS] Routine Comment: hd 06/07/19 11:45 Consult to Dialysis [CONS] ONCE - Constitutional Vitals: Temp Pulse Resp BP Pulse Ox 36.4 C L 84 18 92/58 98 06/07/19 16:44 06/07/19 16:44 06/07/19 16:44 06/07/19 18:00 06/07/19 16:44 Exam: GENERAL: Pleasant, alert and Oriented x 3. HEENT: EOMI, PERRLA MOUTH: Pale mucous membranes. Moist mucosa NECK:No JVD, No lymph nodes. CHEST AND LUNGS: Normal breath sounds, no wheezes or crackles HEART: S1 and S2 + holosystolic murmur best heard at apex. ABDOMEN: Soft, nontender, no organomegaly SKIN: Normal color, no rahses, no lesions EXTREMITIES: No deformity, no edema, no tenderness, no joint swelling or clubbing NEUROLOGICAL: Normal cognition, normal motor and sensory exam. - Patient Status Disposition: Hospice - Home Condition: Fair Functional capacity at discharge: uses cane/walker Overall status at discharge: patient is back to baseline - Discharge Instructions Instructions: Heart Failure (DC), Dialysis Diet (DC), Hospice Care (GEN), End- Stage Kidney Disease (DC) Follow Up With: Rena Christianson, TRAINING DEVELOPMENT SPECIALIST [Primary Care Provider] - - Diet and Activity Activity: increase activity as tolerated Diet: advance to your usual diet
[2019-06-07 18:38] VITALS: BP 96/59
[2019-06-07] MEDS ORDERED: rOPINIRole 0.25 MG TABLET PO ONE (23:36)
== END 2019-06-07 18:57 | disposition hospice, home (50) ==
LOC: 2ANU 11:25 → EMEROOARM 11:25 → SUATTDRO 13:53 → 2ANU 14:11
PROVIDERS: ADMIT Internal Medicine; ATTEND Internal Medicine